=== PATIENT | female | born 1955 | race Caucasian/White ===

== ENCOUNTER 2022-10-18 07:47 | Emergency (ER) | payer OTHER, SELFPAY ==
[2022-10-18 08:07] VITALS: BP 171/95; PULSE 88; RESP 18; TEMP 36.2; O2SAT 99; BMI 20.5
--- NOTE | 2022-10-18 08:09 | ED_ITS ---
HPI - General Adult General Chief complaint: Upper Respiratory Symptoms Stated complaint: neck hurts affecting ear/voice T Time Seen by Provider: 10/18/22 08:08 Source: patient Mode of arrival: Ambulatory Limitations: no limitations History of Present Illness HPI narrative: This is a 66-year-old female with history of hypothyroidism, hypertension and chronic neck pain. Patient states that she is had persistent pain in her left neck that is tightness from the neck radiating down in the trapezius area for several months. She was taking Tylenol which manage her discomfort she saw her physician who recommended meloxicam. She states that has been doing well. She states last night she did sit watching TV and a slightly awkward position which may have exacerbated her symptoms. She woke up this morning it has been a little bit more stiff and uncomfortable. She states that the discomfort sort of radiated to the base of her skull left ear and she felt a little hoarse. Patient states when she stood up to get dressed it made it better and she still has some discomfort in the neck typical for her but that is ear pain resolved as well as the hoarseness. She got a little nervous that she thought that that was changing and affecting possibly her airway. She has not had that symptom in the past. She denies any voice change currently. She denies fevers or chills. No cold cough or congestion. She denies any chest pain or pressure, no shortness of breath. She states that location of the neck discomfort that area does not radiate down her arm. Other than the ear pain and hoarseness she did not have any new additional changes. She denies nausea or vomiting, diaphoresis. No GI or urinary symptoms. No numbness, tingling or weakness. Patient states she is had a prior appendectomy and fallopian tube removal. She states she quit smoking in 1999, no daily alcohol, no illicit. Patient does not take an aspirin daily. No known drug allergies. No known food or other environmental allergies. Related Data Allergies Allergy/AdvReac Type Severity Reaction Status Date / Time No Known Drug Allergies Allergy Verified 10/18/22 08:16 Review of Systems Review of Systems ROS Unobtainable: All systems reviewed & are unremarkable except as noted in HPI and below Patient History Social History Smoking Status: Former smoker Exam Narrative Exam Narrative: GEN: well nourished, well appearing female, alert and oriented x 3, patient appears to be in mild distress. HEENT: Atraumatic, pupils are equal round reactive to light, extraocular movements are intact, nares are clear, TMs show bilateral cerumen, tragus is nontender, there is no conjunctival pallor. Throat is clear without any exudates, erythema, tonsillar enlargement or uvular deviation, patient no hoarseness or muffled voice, no thyromegaly, normal swallow, patient is not having any issues swallowing secretions. Patient has full range of motion, no cervical vertebral tenderness. Patient on palpation does have some mild discomfort over the left paraspinal muscles in the cervical spine and some tissue tightness in the left trapezius. HEART: Regular rate and rhythm without murmur, clicks, rubs. LUNGS:Lungs clear to auscultation, no wheezes, rales, crackles, chest moves symmetrically ABD:bowel sounds normal, soft, non-tender, no guarding, rebound, rigidity, no masses noted, no hepatosplenomegaly MSCL: Non-tender, no muscle atrophy, muscles strength 5/5 upper and lower extremities, full range of motion, normal gait NEURO:CN 2-12 intact, sensation normal SKIN: Rash, erythema or other skin changes. Initial Vital Signs Initial Vital Signs: Vital Signs Temperature 97.2 F L 10/18/22 08:07 Pulse Rate 88 10/18/22 08:07 Respiratory Rate 18 10/18/22 08:07 Blood Pressure 171/95 H 10/18/22 08:07 Pulse Oximetry 99 10/18/22 08:07 Oxygen Delivery Method Room Air 10/18/22 08:07 Course Orders Ordered: ED Orders 10/18/22 08:19 EKG-12 Lead Stat Vital Signs Vital signs: Vital Signs - 8 hr 10/18/22 08:07 Temperature 97.2 F L Pulse Rate 88 Respiratory Rate 18 Blood Pressure 171/95 H Pulse Oximetry 99 Oxygen Delivery Method Room Air Medical Decision Making ECG Data Attestation: I personally reviewed and interpreted this ECG as follows: Prior ECG tracings: not available for review Interpretation: Sinus rhythm rate of 75 MA 160 QRS of [address] No acute [address] changes appreciated. Patient does not have prior for comparison. MDM Narrative Medical decision making narrative: This is a 66-year-old female comes with complaint of acute on chronic neck discomfort patient states she had a brief period where she had ear discomfort and hoarseness that got better when she stood up. Her concern was that she thought there might be some airway involvement. She states that she does not have any known allergies. Her symptoms self-resolved without any other issues. She does note that she sat for awhile which may have exacerbated her chronic neck pain. She takes meloxicam currently for and states her pain is well- controlled. She has not had any other new changes at this time. Patient did have EKG obtained, no acute changes appreciated. Discussed return precautions. Discharge Plan Departure Patient Disposition: Home Clinical Impression: Neck pain on left side Activity Restrictions/Additional Instructions: Please follow-up with your physician for recheck as needed. You may continue your home medications as prescribed. Please return if you have new changes such as persistent hoarseness or voice changes, difficulty with swallowing, swelling of her neck, face, severe headaches, new numbness, tingling or other new or concerning changes. Referrals: Emi Mays ARNP [Primary Care Provider] - Stand Alone Forms: Patient Portal/API
== END 2022-10-18 08:43 | disposition home or self-care (01) ==
PROVIDERS: Emergency Provider Emergency Medicine; PCP Registered Nurse
DX: M54.2 Cervicalgia (principal); R03.0 Elevated blood-pressure reading, without diagnosis of hypertension
CPT/HCPCS: 93005; 99281; 99282

== ENCOUNTER 2022-11-11 08:09 | Emergency (ER) | payer OTHER, SELFPAY ==
[2022-11-11 08:22] VITALS: BP 182/88; PULSE 92; RESP 18; TEMP 36.1; O2SAT 98; BMI 20.9
--- NOTE | 2022-11-11 09:07 | DI.CT.S_ITS ---
PROCEDURE: CT SOFT TISSUE NECK W CON INDICATIONS: Left neck pain, hoarse voice TECHNIQUE: After the administration of intravenous contrast, 3.0 mm axial sections acquired from the sella to the aortic arch. Additional oblique axial 3.0 mm sections acquired through the pharynx. 3 mm thick coronal and sagittal reformats were generated. For radiation dose reduction, the following was used: automated exposure control. COMPARISON: None. FINDINGS: Skull Base: The visualized intracranial contents, skull, and orbits are unremarkable. Visualized paranasal sinuses are clear. Pharynx and Larynx: The nasopharyngeal airway is patent and midline. Parapharyngeal soft tissues including palatine tonsils and base of the tongue are normal. Retropharyngeal space unremarkable. Normal appearance of the false and true vocal cords. Tracheoesophageal groove unremarkable Muscles and Fascial Planes: Fascial planes are well maintained. No abscess or mass lesion. Lymph Nodes: No evidence of adenopathy. Vasculature: Unremarkable. Submandibular and Parotid Glands: Normal in size and attenuation. Thyroid: Unremarkable. No enlarged or calcified nodules. Bones: No acute fracture. No osteolytic or blastic lesion is evident. Normal bone mineralization. Lung Apices: There is a left upper lobe neoplastic mass lesion measuring 3.1 x 3.4 x 5.0 cm associated with bulky mediastinal and left hilar metastatic adenopathy which surrounds the left upper lobe pulmonary artery and fills the aortopulmonary window. IMPRESSION: 1. Bulky metastatic mediastinal adenopathy associated with large left upper lobe pulmonary mass lesion. Consider follow-up CT chest for complete evaluation 2. No evidence of cervical adenopathy Approved by: Rodrick Burks M.D. on 11/11/2022 at 9:25
--- NOTE | 2022-11-11 09:09 | ED.HA ---
HPI - Headache General Chief Complaint: Headache Stated Complaint: headache, pressure on neck/back Time Seen by Provider: 11/11/22 08:59 Mode of arrival: Ambulatory History of Present Illness HPI Narrative: Patient seen here October 18, 2022 for the same complaint. Patient has appointment November [address] Girish Jackson here locally. Patient has had hoarse voice for the past 3 or 4 weeks. In addition has left-sided neck pain. Today radiate to the left temporal area. No nausea or vomiting. Patient wears a hearing aid on the left. This is not changed. This was removed for exam of the ear as well. Patient in no distress. No fever chills. Does have history of hypothyroidism and is on medications. No trouble breathing. At this time handling secretions. No drooling. Patient has had constant left lower neck pain that radiates upwards. Related Data Home Medications Medication Instructions Recorded Confirmed amlodipine 5 mg tablet (Norvasc) 5 mg PO DAILY 11/22/22 11/22/22 diclofenac sodium 1.5 % topical 40 drp topical QID 11/22/22 11/22/22 drops latanoprost 0.005 % eye drops 1 drp ophthalmic (eye) DAILY 11/22/22 11/22/22 levothyroxine 88 mcg tablet 88 mcg PO DAILY 11/22/22 11/22/22 Previous Rx's Medication Instructions Recorded baclofen 20 mg tablet 20 mg PO TID #60 tabs 11/22/22 Allergies Allergy/AdvReac Type Severity Reaction Status Date / Time No Known Drug Allergies Allergy Verified 11/11/22 10:43 Review of Systems Review of Systems Narrative: GENERAL: negative chills, fatigue, malaise, fever, sweats. HEENT: negative sinus pain, ear pain, positive hoarse voice/sore throat RESPIRATORY: negative dyspnea, cough CARDIOVASCULAR: negative chest pain, palpitations GASTROINTESTINAL: negative nausea, vomiting, abdominal pain : negative dysuria, frequency, hematuria MUSCULOSKELETAL: Positive neck/muscle or bony pain SKIN: negative rash, skin lesions NEUROLOGIC: negative weakness, numbness, positive left-sided headache ROS Unobtainable: All systems reviewed & are unremarkable except as noted in HPI and below Patient History Social History Smoking Status: Former smoker Smoking Status: Former smoker tobacco type: cigarettes alcohol intake frequency: 0-2 drinks per day Alcohol type: wine and hard liquor Substance Use Type: does not use Exam Narrative Exam Narrative: GENERAL: in no distress, not toxic not dyspneic HEAD: Normocephalic. EYES: Pupils equal round ENT: Mucous membranes moist. No pharyngeal erythema edema or mass. No uvula shift. No abscess seen. No tongue elevation. No drooling. No trismus or malocclusion. NECK: Trachea midline. No palpable mass anteriorly. No thyromegaly. No stridor. No midline tenderness or step-off of posterior cervical spine. There is mild tenderness to the lower left trapezius muscles. Patient has full active range of motion without any difficulty or pain. CARDIOVASCULAR: Regular rate and rhythm without murmurs RESPIRATORY: Clear to auscultation. Breath sounds equal bilaterally. No wheezes, rales, or rhonchi. NEURO: AOx4. SKIN: Warm and dry PSYCH: Not anxious, is cooperative Initial Vital Signs Initial Vital Signs: Vital Signs Temperature 97 F L 11/11/22 08:22 Pulse Rate 92 H 11/11/22 08:22 Respiratory Rate 18 11/11/22 08:22 Blood Pressure 182/88 H 11/11/22 08:22 Pulse Oximetry 98 11/11/22 08:22 Oxygen Delivery Method Room Air 11/11/22 08:22 Course Orders Ordered: Discontinued Medications Sodium Chloride (Normal Saline 0.9%) 500 mls @ 1,000 mls/hr IV BOLUS ONE Stop: 11/11/22 09:36 Last Infusion: 11/11/22 10:53 Dose: 0 mls/hr Documented By: Admin: 11/11/22 09:58 Dose: 1,000 mls/hr Documented By: INES Vital Signs Vital signs: Vital Signs - 8 hr 11/11/22 08:22 11/11/22 09:59 Temperature 97 F L Pulse Rate 92 H 73 Respiratory Rate 18 16 Blood Pressure 182/88 H 144/67 H Pulse Oximetry 98 100 Oxygen Delivery Method Room Air Room Air MDM - Headache Lab Data 11/11/22 09:14 11/11/22 09:14 Labs: Lab Results 11/11/22 11/11/22 Range/Units 09:14 09:14 WBC 7.4 (4.5-11.0) X10^3/uL RBC 5.31 H (4.0-5.2) X10^6/uL Hgb 14.4 (12.0-16.0) g/dL Hct 43.4 (36-46) % MCV 81.7 (80-100) fL MCH 27.1 (26-34) PG MCHC 33.2 (30-36) % RDW 14.2 (11.6-14.8) % Plt Count 302 (150-400) X10^3/uL Neut % (Auto) 77.2 H (50-75) % Lymph % (Auto) 12.4 L (25-40) % [place] % (Auto) 8.2 (3-14) % Eos % (Auto) 1.3 L (2-4) % Baso % (Auto) 0.9 (0-2) % Neut # (Auto) 5700 (9054-6127) /uL Lymph # (Auto) 900 L (4001-4957) /uL [place] # (Auto) 600 (0-900) /uL Eos # (Auto) 100 (0-450) /uL Baso # (Auto) 100 (0-100) /uL Sodium 138 (137-145) mmol/L Potassium 4.2 (3.4-5.1) mmol/L Chloride 101 (98-107) mmol/L Carbon Dioxide 29 (22-32) mmol/L BUN 13 (7-17) mg/dL Creatinine 0.68 (0.52-1.04) mg/dL Estimated GFR > 60 (>60) mL/min BUN/Creatinine Ratio 19.1 (6-22) Glucose 100 (80-110) mg/dL Calcium 10.0 (8.4-10.2) mg/dL Total Bilirubin 0.7 (0.2-1.3) mg/dL AST 24 (14-36) IU/L ALT 18 (<35) IU/L Alkaline Phosphatase 120 (38-126) U/L Total Protein 8.8 H (6.3-8.2) g/dL Albumin 4.6 (3.5-5.0) g/dL Globulin 4.2 H (1.7-4.1) g/dL Albumin/Globulin Ratio 1.1 (1.0-2.8) Imaging Data ct soft tissue neck: Radiologist's Impression: PROCEDURE:? CT SOFT TISSUE NECK W CON ? INDICATIONS:? Left neck pain, hoarse voice ? TECHNIQUE:? After the administration of intravenous contrast, 3.0 mm axial sections acquired from the sella to the aortic arch.? Additional oblique axial 3.0 mm sections acquired through the pharynx.? 3 mm thick coronal and sagittal reformats were generated.? For radiation dose reduction, the following was used:? automated exposure control.? ? COMPARISON:? None. ? FINDINGS: ? Skull Base: The visualized intracranial contents, skull, and orbits are unremarkable.? Visualized paranasal sinuses are clear. ? Pharynx and Larynx:? The nasopharyngeal airway is patent and midline.? Parapharyngeal soft tissues including palatine tonsils and base of the tongue are normal.? Retropharyngeal space unremarkable.? Normal appearance of the false and true vocal cords. ? ? Tracheoesophageal groove unremarkable ? Muscles and Fascial Planes:? Fascial planes are well maintained.? No abscess or mass lesion. ? Lymph Nodes:? No evidence of adenopathy. ? Vasculature:? Unremarkable. ? Submandibular and Parotid Glands:? Normal in size and attenuation. ? Thyroid:? Unremarkable.? No enlarged or calcified nodules. ? Bones:? No acute fracture.? No osteolytic or blastic lesion is evident. Normal bone mineralization. ? Lung Apices:? There is a left upper lobe neoplastic mass lesion measuring 3.1 x 3.4 x 5.0 cm associated with bulky mediastinal and left hilar metastatic adenopathy which surrounds the left upper lobe pulmonary artery and fills the aortopulmonary window. ? IMPRESSION: ? 1. Bulky metastatic mediastinal adenopathy associated with large left upper lobe pulmonary mass lesion.? Consider follow-up CT chest for complete evaluation ? 2. No evidence of cervical adenopathy CT scan - head: Radiologist's Impression: PROCEDURE:? CT HEAD/BRAIN WO CON ? INDICATIONS:? headache ? TECHNIQUE:? Noncontrast 4.5 mm thick angled axial sections acquired from the foramen magnum to the vertex, with coronal and sagittal reformats.? For radiation dose reduction, the following was used:? automated exposure control, adjustment of mA and/or kV according to patient size.? ? COMPARISON:? None. ? FINDINGS:? Image quality:? Excellent.? ? CSF spaces:? Basal cisterns are patent.? No extra-axial fluid collections.? Ventricles are normal in size and shape.? ? Brain:? No midline shift.? No intracranial masses or hemorrhage.? Thomas-white matter interface is normal.? ? Skull and face:? Calvarium and visualized facial bones are intact, without suspicious lesions.? ? Sinuses:? Visualized sinuses and mastoids are clear.? ? IMPRESSION:? Normal CT of the brain ? ? ? Approved by: Rodrick Burks M.D. on 11/11/2022 at 11:20? CT chest abdomen pelvis: Radiologist's Impression: PROCEDURE:? CT CHEST ABD PEL W CON ? INDICATIONS:? lung mass ? TECHNIQUE:? After the administration of intravenous contrast, 5 mm thick sections acquired from the lung apices to the symphysis.? 5 mm coronal and sagittal reformats were performed, with additional 7 mm MIP reformats through the lungs.? For radiation dose reduction, the following was used:? automated exposure control, adjustment of mA and/or kV according to patient size.? ? COMPARISON:? None. ? FINDINGS: ? Chest: ? Cardiovascular:? Heart size is normal.? No evidence of pulmonary embolism, aortic aneurysm or dissection. ? Lungs and pleural spaces:? In the left upper lobe, there is a large irregular mass lesion abutting and crossing the major fissure measuring overall 3.3 x 3.7 cm axial by 5.2 cm superior inferior. ? Lymph nodes:? Bulky left hilar and mediastinal conglomerate adenopathy measures 3.5 by 4.8 by 2.6 cm centered in the aortopulmonary window with mass effect on the left mainstem bronchus.? Mass also surrounds the left upper lobe main pulmonary artery. ? Mediastinum:? As above.? No hiatal hernia.? Thyroid within normal limits. ? Chest Wall and Bones:? Unremarkable.? No acute fracture. ? Abdomen and Pelvis: ? Liver:? Right hepatic lobe 2.2 cm lesion with peripheral puddling of contrast noted, consistent with cavernous hemangioma Biliary system:? No calcified cholelithiasis or pericholecystic inflammation.? No intra or extrahepatic bile duct dilatation. ? Pancreas:? Unremarkable without mass or inflammation evident. ? Spleen:? Normal in size and density. ? Adrenals:? Normal morphology and density. ? Reproductive system:? Unremarkable as visualized. ? Urinary system:? Normal renal size and attenuation. No renal calculi, hydronephrosis, or solid mass present.? Urinary bladder unremarkable. ? Gastrointestinal system:? The bowel is unremarkable with no evidence of bowel obstruction or inflammation. The stomach appears unremarkable.? ? Appendix:? No findings to suggest acute appendicitis. ? Lymph nodes:? No mesenteric or retroperitoneal adenopathy. ? Peritoneal spaces: ? No free air. No free fluid.? ? Vasculature:? Aortic atherosclerotic vascular calcification noted without evidence of aneurysm. ? Abdominal wall:? Abdominal wall intact without evidence of ventral or inguinal hernias. ? Musculoskeletal:? Normal bone mineralization.? Degenerative disc disease and arthropathy noted in lower lumbar spine.? No acute fractures.? Arthritic changes noted both hips, right greater than left ? IMPRESSION: ? 1.? Large left upper lobe mass lesion associated with left hilar and mediastinal metastatic adenopathy.? Conglomerate mediastinal mass does have mass effect on the left mainstem bronchus.? Consider follow-up bronchoscopy ? Approved by: Rodrick Burks M.D. on 11/11/2022 at 11:31? [facility] Narrative Medical decision making narrative: After history and exam CBC CMP CT soft tissue neck normal saline ordered [facility] CC: Hoarse voice neck pain Complicating co-morbidities: None Data collected from: Patient Medical records reviewed: ER visit here October 18, 2022 Differential considered: Includes but not limited to vocal cord polyp, neck mass, cervical radiculopathy Exam documented above, pertinent findings include: Hoarse voice Lab Test results independently reviewed as above. Pertinent findings: WBC 7.4 hemoglobin 14 hematocrit 43 platelets 302 sodium 138 potassium 4.2 GFR greater than 60 AST 24 ALT 18 Imaging studies independently reviewed: CT soft tissue neck Bulky metastatic mediastinal adenopathy associated with large left upper lobe pulmonary mass lesion. CT head no acute process CT chest abdomen pelvis bulky metastatic mediastinal adenopathy associated with large left upper lobe pulmonary mass lesion. Consultations: 2:[address] Portillo, oncology. He will have office call patient on Sunday, patient will also need to call Sunday to confirm time for follow up with Dr. Bashir in [place] for workup for possible lung cancer. Treatments: Normal saline Re-evaluations: 10:30 a.m.. Spoke with patient concerning CT neck results of metastatic lung cancer. We are waiting for CT imaging of the head chest abdomen and pelvis. 2:45 p.m.. Updated patient my conversation with oncology. She agrees for follow up. She understands this is concerning for lung cancer. 3:15 p.m.. I called patient back, I did prescribe her hydrocodone. I did not provide that at time of discharge. It will be here at the emergency department for her to pick up attendant Discussion: Appropriate for discharge home. Patient airway intact. Patient protecting airway. Nontoxic not dyspneic. She does understand this is concerning for metastatic lung cancer. She did stop smoking within the last year. Appropriate for follow up with Oncology. I have contacted Oncology Services. Diagnosis: Metastatic lung mass Discharge Plan Departure Patient Disposition: Home Clinical Impression: Mass of left lung Instructions: DI for Lung Cancer Activity Restrictions/Additional Instructions: Please call Dr. Bashir office on Sunday for follow up appointment regarding the lung mass/tumor found today in your lungs. Please do keep your appointment with Dr. Jackson November 20 regarding your throat issues. Be sure to let Dr. Jackson office know he had CT scan imaging done. Return if worse if any questions or concerns or if any trouble breathing. Prescription for baclofen has been sent to your pharmacy to pick up attendant today. You will require further workup regarding this lung mass/tumor Prescriptions: No Action latanoprost 0.005 % Drops 1 drp OPHTHALMIC (EYE) DAILY levothyroxine 88 mcg Tablet 88 mcg PO DAILY diclofenac sodium 1.5 % Drops 40 drp TOPICAL QID Rx Instructions: apply to single affected knee amlodipine [Norvasc] 5 mg Tablet 5 mg PO DAILY baclofen 20 mg Tablet 20 mg PO TID Qty: 60 1RF Referrals: Emi Mays ARNP [Primary Care Provider] - Ricky Bashir MD [Physician] - Stand Alone Forms: Patient Portal/API
[2022-11-11 09:21] LABS: Add Manual Diff / Slide Review NO; Basophils Absolute Auto 100 /uL (0-100); Basophils Percent Auto 0.9 % (0-2); Eosinophils Absolute Auto 100 /uL (0-450); Eosinophils Percent Auto 1.3 % (2-4); Hematocrit 43.4 % (36-46); Hemoglobin 14.4 g/dL (12.0-16.0); Lymphocytes Absolute Auto 900 /uL (1100-4500); Lymphocytes Percent Auto 12.4 % (25-40); Mean Corpuscular HGB Conc 33.2 % (30-36); Mean Corpuscular Hemoglobin 27.1 PG (26-34); Mean Corpuscular Volume 81.7 fL (80-100); Monocytes Absolute Auto 600 /uL (0-900); Monocytes Percent Auto 8.2 % (3-14); Neutrophils Absolute Auto 5700 /uL (1500-7000); Neutrophils Percent Auto 77.2 % (50-75); Platelet Count 302 X10^3/uL (150-400); Red Blood Cell Count 5.31 X10^6/uL (4.0-5.2); Red Cell Distribution Width 14.2 % (11.6-14.8); White Blood Cell Count 7.4 X10^3/uL (4.5-11.0)
[2022-11-11 09:38] LABS: Alanine Aminotransferase 18 IU/L (<35); Albumin 4.6 g/dL (3.5-5.0); Albumin Globulin Ratio 1.1 (1.0-2.8); Alkaline Phosphatase 120 U/L (38-126); Aspartate Aminotransferase 24 IU/L (14-36); BUN Creatinine Ratio 19.1 (6-22); Bilirubin Total 0.7 mg/dL (0.2-1.3); Blood Urea Nitrogen 13 mg/dL (7-17); Carbon Dioxide 29 mmol/L (22-32); Chloride 101 mmol/L (98-107); Estimated Glomerular Filt Rate > 60 mL/min (>60); Globulin 4.2 g/dL (1.7-4.1); Glucose 100 mg/dL (80-110); HEMOLYSIS < 15 (0-50); Potassium 4.2 mmol/L (3.4-5.1); Sodium 138 mmol/L (137-145); Total Protein 8.8 g/dL (6.3-8.2)
[2022-11-11] MEDS: SODIUM CHLORIDE 0.9% 500 ML 1000 ML IV (09:58)
[2022-11-11 09:59] VITALS: BP 144/67; PULSE 73; RESP 16; O2SAT 100
--- NOTE | 2022-11-11 10:42 | DI.CT.S_ITS ---
PROCEDURE: CT HEAD/BRAIN WO CON INDICATIONS: headache TECHNIQUE: Noncontrast 4.5 mm thick angled axial sections acquired from the foramen magnum to the vertex, with coronal and sagittal reformats. For radiation dose reduction, the following was used: automated exposure control, adjustment of mA and/or kV according to patient size. COMPARISON: None. FINDINGS: Image quality: Excellent. CSF spaces: Basal cisterns are patent. No extra-axial fluid collections. Ventricles are normal in size and shape. Brain: No midline shift. No intracranial masses or hemorrhage. Thomas-white matter interface is normal. Skull and face: Calvarium and visualized facial bones are intact, without suspicious lesions. Sinuses: Visualized sinuses and mastoids are clear. IMPRESSION: Normal CT of the brain Approved by: Rodrick Burks M.D. on 11/11/2022 at 11:20
--- NOTE | 2022-11-11 10:42 | DI.CT.S_ITS ---
PROCEDURE: CT CHEST ABD PEL W CON INDICATIONS: lung mass TECHNIQUE: After the administration of intravenous contrast, 5 mm thick sections acquired from the lung apices to the symphysis. 5 mm coronal and sagittal reformats were performed, with additional 7 mm MIP reformats through the lungs. For radiation dose reduction, the following was used: automated exposure control, adjustment of mA and/or kV according to patient size. COMPARISON: None. FINDINGS: Chest: Cardiovascular: Heart size is normal. No evidence of pulmonary embolism, aortic aneurysm or dissection. Lungs and pleural spaces: In the left upper lobe, there is a large irregular mass lesion abutting and crossing the major fissure measuring overall 3.3 x 3.7 cm axial by 5.2 cm superior inferior. Lymph nodes: Bulky left hilar and mediastinal conglomerate adenopathy measures 3.5 by 4.8 by 2.6 cm centered in the aortopulmonary window with mass effect on the left mainstem bronchus. Mass also surrounds the left upper lobe main pulmonary artery. Mediastinum: As above. No hiatal hernia. Thyroid within normal limits. Chest Wall and Bones: Unremarkable. No acute fracture. Abdomen and Pelvis: Liver: Right hepatic lobe 2.2 cm lesion with peripheral puddling of contrast noted, consistent with cavernous hemangioma Biliary system: No calcified cholelithiasis or pericholecystic inflammation. No intra or extrahepatic bile duct dilatation. Pancreas: Unremarkable without mass or inflammation evident. Spleen: Normal in size and density. Adrenals: Normal morphology and density. Reproductive system: Unremarkable as visualized. Urinary system: Normal renal size and attenuation. No renal calculi, hydronephrosis, or solid mass present. Urinary bladder unremarkable. Gastrointestinal system: The bowel is unremarkable with no evidence of bowel obstruction or inflammation. The stomach appears unremarkable. Appendix: No findings to suggest acute appendicitis. Lymph nodes: No mesenteric or retroperitoneal adenopathy. Peritoneal spaces: No free air. No free fluid. Vasculature: Aortic atherosclerotic vascular calcification noted without evidence of aneurysm. Abdominal wall: Abdominal wall intact without evidence of ventral or inguinal hernias. Musculoskeletal: Normal bone mineralization. Degenerative disc disease and arthropathy noted in lower lumbar spine. No acute fractures. Arthritic changes noted both hips, right greater than left IMPRESSION: 1. Large left upper lobe mass lesion associated with left hilar and mediastinal metastatic adenopathy. Conglomerate mediastinal mass does have mass effect on the left mainstem bronchus. Consider follow-up bronchoscopy Approved by: Rodrick Burks M.D. on 11/11/2022 at 11:31
--- NOTE | 2022-11-11 10:45 | PC.NURSE ---
Dr. King removed pt from monitoring, states pt does not require continuous vitals at this time.
== END 2022-11-11 14:55 | disposition home or self-care (01) ==
PROVIDERS: Emergency Provider Emergency Medicine; PCP Registered Nurse
DX: C78.02 Secondary malignant neoplasm of left lung (principal); R51.9 Headache, unspecified; R91.8 Other nonspecific abnormal finding of lung field; M54.2 Cervicalgia
CPT/HCPCS: 36415; 70450; 70491; 71260; 74177; 80053; 85025; 99284; Q9967

== ENCOUNTER 2022-12-14 06:59 | Emergency (ER) | payer OTHER, SELFPAY ==
[2022-12-14] VITALS (11 sets, daily range): BP systolic 118–150; BP diastolic 65–89; PULSE 75–98; RESP 16–26; TEMP 36.6; O2SAT 94–96; BMI 19.9
--- NOTE | 2022-12-14 07:17 | DI.RAD.S_ITS ---
PROCEDURE: XR CHEST 2V INDICATIONS: SOB TECHNIQUE: 2 views of the chest were acquired. COMPARISON: [facility], CR, XR CHEST 1 VIEW, 12/11/2022, 16:57. [facility], CT, CT CHEST WITH CONTRAST, 12/01/2022, 12:58. FINDINGS: Surgical changes and devices: A left chest port is seen with catheter tip projecting over the superior vena cava. Lungs and pleura: No significant change in the upper lobe mass. There is mild volume loss within the left hemithorax with leftward shift mediastinal structures and mild elevation of the left hemidiaphragm. No pleural effusion or pneumothorax. Mediastinum: Mediastinal contours are normal. Heart size is normal. Bones and chest wall: No suspicious bony abnormalities. Soft tissues appear unremarkable. IMPRESSION: Stable left suprahilar mass. Volume loss within the left hemithorax has increased when compared to the exam from 12/11/2022, which could indicate increased mass effect on left-sided bronchi, although no definite lobar collapse is seen. Approved by: Roberto Wood M.D. on 12/14/2022 at 7:36
--- NOTE | 2022-12-14 07:20 | ED.CHESTPAIN ---
HPI - Chest Pain General Chief Complaint: Chest Pain Stated Complaint: port put in a now has pain in neck, back left side Time Seen by Provider: 12/14/22 07:16 History of Present Illness HPI narrative: 66-year-old female former smoker with lung cancer and recent port placement presents with multiple symptoms upon waking this morning including chest pain, shortness of breath and neck pain. She states that she felt largely at her baseline when she went to bed but on the whole has not been feeling well for quite some time. Her partner at the bedside suggest that she is been getting increasingly short of breath with chest and neck discomfort with exertion for quite some time it is unclear if it is getting worse or not. She woke up this morning feeling chest pressure that seemed to worsen upon sitting up. She feels pressure in her posterior shoulder and left side of her neck as well. She is in the process of being worked up for a left lung mass that is most consistent with lung cancer and on the had a biopsy and a port placed at [facility]. She denies any fever or chills. She denies nausea, vomiting or diarrhea. She denies any blurred vision, trouble speech and is not dizzy nor weak or lightheaded. Related Data Home Medications Medication Instructions Recorded Confirmed amlodipine 5 mg tablet (Norvasc) 5 mg PO DAILY 11/22/22 11/22/22 diclofenac sodium 1.5 % topical 40 drp topical QID 11/22/22 11/22/22 drops latanoprost 0.005 % eye drops 1 drp ophthalmic (eye) DAILY 11/22/22 11/22/22 levothyroxine 88 mcg tablet 88 mcg PO DAILY 11/22/22 11/22/22 Previous Rx's Medication Instructions Recorded baclofen 20 mg tablet 20 mg PO TID #60 tabs 11/22/22 Allergies Allergy/AdvReac Type Severity Reaction Status Date / Time No Known Drug Allergies Allergy Verified 11/11/22 10:43 Review of Systems Review of Systems Narrative: GENERAL: Denies chills, fatigue, malaise, fever, sweats. HEENT: Denies sinus pain, ear pain, sore throat, difficulty swallowing, dizziness. RESPIRATORY: See HPI. CARDIOVASCULAR: See HPI GASTROINTESTINAL: Denies nausea, vomiting, abdominal pain, diarrhea, constipation, melena. : Denies dysuria, frequency, incontinence, hematuria, urinary retention. MUSCULOSKELETAL: denies weakness, joint pain, or bony pain SKIN: Denies rash, skin lesions, or other NEUROLOGIC: Denies weakness, headache, numbness, change in speech, confusion, seizures, incoordination. PSYCHIATRIC: No concerning psychosocial issues. 12 point review of systems is negative except for those stated above Patient History Social History Smoking Status: Former smoker Smoking Status: Former smoker tobacco type: cigarettes alcohol intake frequency: 0-2 drinks per day Alcohol type: wine and hard liquor Substance Use Type: does not use Exam Narrative Exam Narrative: GENERAL: [66] year old patient appears stated age. Well-developed patient, in mild distress. HEAD: Atraumatic. Normocephalic. EYES: Pupils equal round and reactive. Extraocular motions intact. No scleral icterus. No injection or drainage. ENT: Nose without bleeding, purulent drainage. Throat without erythema, tonsillar hypertrophy or exudate. Airway patent. NECK: Trachea midline. Non tender CARDIOVASCULAR: Regular rate and rhythm without murmurs, gallops, or rubs. Anterior chest with appropriately healing port site, no significant redness or swelling, no drainage, no fluctuance RESPIRATORY: Decreased lung sounds bilaterally with prolonged expiratory phase, no obvious rales or rhonchi GASTROINTESTINAL: Abdomen soft, non-tender, nondistended. EXTREMITIES: No edema or joint tenderness. BACK: Nontender without deformity or crepitance. No flank tenderness. NEURO: AOx3. SKIN: No rash or erythema of visible areas Initial Vital Signs Initial Vital Signs: Vital Signs Temperature 97.9 F 12/14/22 07:01 Pulse Rate 98 H 12/14/22 07:01 Respiratory Rate 16 12/14/22 07:01 Blood Pressure 150/80 H 12/14/22 07:01 Pulse Oximetry 94 12/14/22 07:01 Oxygen Delivery Method Room Air 12/14/22 07:01 Scores HEART Score Heart Score history: Slightly Suspicious Heart Score EKG: Normal Heart Score Age: > or = 65 years old Heart Score risk factors: 1-2 risk factors Heart Score troponin: < or = to normal limit Heart Score Total: 3 Course Orders Ordered: ED Orders 12/14/22 07:17 XR chest 2V Stat 12/14/22 07:18 EKG-12 Lead Stat 12/14/22 08:00 Complete Blood Count AUTO DIFF Stat Comprehensive Metabolic Panel Stat Lipase Stat Magnesium Stat NT-proBNP (BNP-Adult 18+) Stat Prothrombin Time INR Stat Troponin & CK Cardiac Panel Stat 12/14/22 08:02 CT angio chest Stat CT angio head and neck Stat 12/14/22 11:46 Troponin & CK Cardiac Panel Stat Vital Signs Vital signs: Vital Signs - 8 hr 12/14/22 07:01 12/14/22 08:05 12/14/22 08:07 Temperature 97.9 F Pulse Rate 98 H 86 Respiratory Rate 16 Blood Pressure 150/80 H 130/75 Pulse Oximetry 94 95 Oxygen Delivery Method Room Air 12/14/22 08:07 12/14/22 08:30 12/14/22 08:30 Temperature Pulse Rate 83 75 Respiratory Rate 17 Blood Pressure 118/73 Pulse Oximetry 95 95 Oxygen Delivery Method MDM - Chest Pain Lab Data 12/14/22 08:00 12/14/22 08:00 Labs: Lab Results 12/14/22 12/14/22 12/14/22 Range/Units 08:00 08:00 08:00 WBC 9.2 (4.5-11.0) X10^3/uL RBC 5.00 (4.0-5.2) X10^6/uL Hgb 13.5 (12.0-16.0) g/dL Hct 40.4 (36-46) % MCV 80.7 (80-100) fL MCH 26.9 (26-34) PG MCHC 33.4 (30-36) % RDW 14.2 (11.6-14.8) % Plt Count 317 (150-400) X10^3/uL Neut % (Auto) 78.1 H (50-75) % Lymph % (Auto) 11.5 L (25-40) % [place] % (Auto) 8.8 (3-14) % Eos % (Auto) 1.1 L (2-4) % Baso % (Auto) 0.5 (0-2) % Neut # (Auto) 7200 H (4763-4767) /uL Lymph # (Auto) 1100 (1516-5488) /uL [place] # (Auto) 800 (0-900) /uL Eos # (Auto) 100 (0-450) /uL Baso # (Auto) 0 (0-100) /uL PT 13.1 H (10.1-12.7) SECONDS INR 1.1 (0.9-1.3) Sodium 136 L (137-145) mmol/L Potassium 4.5 (3.4-5.1) mmol/L Chloride 101 (98-107) mmol/L Carbon Dioxide 28 (22-32) mmol/L BUN 10 (7-17) mg/dL Creatinine 0.72 (0.52-1.04) mg/dL Estimated GFR > 60 (>60) mL/min BUN/Creatinine Ratio 13.9 (6-22) Glucose 107 (80-110) mg/dL Calcium 9.6 (8.4-10.2) mg/dL Magnesium 2.3 (1.6-2.3) mg/dL Total Bilirubin 0.6 (0.2-1.3) mg/dL AST 21 (14-36) IU/L ALT 17 (<35) IU/L Alkaline Phosphatase 133 H (38-126) U/L Total Creatine Kinase 26 L (30-135) U/L CK-MB (CK-2) TNP CK-MB (CK-2) Rel Index TNP Troponin I < 0.012 (0.01-0.034) ng/mL NT-Pro-B Natriuret Pep 60 (<125) pg/mL Total Protein 7.8 (6.3-8.2) g/dL Albumin 4.2 (3.5-5.0) g/dL Globulin 3.6 (1.7-4.1) g/dL Albumin/Globulin Ratio 1.2 (1.0-2.8) Lipase 86 (23-300) U/L 05/25/ Range/Units 11:46 WBC (4.5-11.0) X10^3/uL RBC (4.0-5.2) X10^6/uL Hgb (12.0-16.0) g/dL Hct (36-46) % MCV (80-100) fL MCH (26-34) PG MCHC (30-36) % RDW (11.6-14.8) % Plt Count (150-400) X10^3/uL Neut % (Auto) (50-75) % Lymph % (Auto) (25-40) % [place] % (Auto) (3-14) % Eos % (Auto) (2-4) % Baso % (Auto) (0-2) % Neut # (Auto) (5607-4560) /uL Lymph # (Auto) (9141-6042) /uL [place] # (Auto) (0-900) /uL Eos # (Auto) (0-450) /uL Baso # (Auto) (0-100) /uL PT (10.1-12.7) SECONDS INR (0.9-1.3) Sodium (137-145) mmol/L Potassium (3.4-5.1) mmol/L Chloride (98-107) mmol/L Carbon Dioxide (22-32) mmol/L BUN (7-17) mg/dL Creatinine (0.52-1.04) mg/dL Estimated GFR (>60) mL/min BUN/Creatinine Ratio (6-22) Glucose (80-110) mg/dL Calcium (8.4-10.2) mg/dL Magnesium (1.6-2.3) mg/dL Total Bilirubin (0.2-1.3) mg/dL AST (14-36) IU/L ALT (<35) IU/L Alkaline Phosphatase (38-126) U/L Total Creatine Kinase 22 L (30-135) U/L CK-MB (CK-2) TNP CK-MB (CK-2) Rel Index TNP Troponin I < 0.012 (0.01-0.034) ng/mL NT-Pro-B Natriuret Pep (<125) pg/mL Total Protein (6.3-8.2) g/dL Albumin (3.5-5.0) g/dL Globulin (1.7-4.1) g/dL Albumin/Globulin Ratio (1.0-2.8) Lipase (23-300) U/L ECG Data Interpretation: [0738] EKG is normal sinus rhythm rate [80 ] and free of any signs of ischemia or ectopy. No ST segmental elevation or depression. No T wave inversions MDM Narrative Medical decision making narrative: CC: 66-year-old female with chest pain and neck pain Complicating co-morbidities: Age, former smoker, hypertension, recent thoracic procedure, biopsy, port placement, lung cancer Data collected from: Patient Medical records reviewed: Prior notes reviewed in our EMR Differential considered, but not limited to: Cardiac ischemia versus pulmonary embolism versus vascular injury versus DVT versus other Exam documented above, pertinent findings include: Heart rate regular, non reproducible anterior chest pain, port site appears in appropriate stage of healing, lungs with decreased breath sounds, prolonged expiratory phase, no significant increased work of breathing Lab Test results independently reviewed as above. Pertinent findings: Independently reviewed EKG as above Imaging studies independently reviewed: Chest x-ray demonstrates a stable left suprahilar mass with volume loss within the left hemothorax slightly increased from prior imaging Consultations: Spoke with Dr. Hanson, requests she be discharged and make it to the appointment this afternoon. Discussion: Patient presents with reassuring history and physical exam and given her recent lung cancer diagnosis and procedures lab workup and imaging were ordered accordingly. Labs are reassuring and without any significant abnormal findings. Advanced imaging of chest, head and neck performed that showed no occlusive process or vascular injury. She does however have interval worsening of her lung cancer and though it is beginning to involve the mainstem bronchus there is no evidence of obstruction at this time. She does have an appointment with Oncology this afternoon and after speaking with the oncologist he thinks her best course is to get treatment started as soon as possible. Disposition: see below, along with detailed discharge instructions that have been reviewed with patient as well as indications for ED re-evaluation and additional outpatient follow up Discharge Plan Departure Patient Disposition: Home Clinical Impression: Atypical chest pain, Lung cancer Instructions: DI for Atypical Chest Pain Activity Restrictions/Additional Instructions: *You have been diagnosed with [symptoms related to interval change in your lung cancer. As we discussed your labs, imaging and EKGs are very reassuring and there is no evidence of any complication of your port, heart attack, blood clot or other.] *What to do: *Please continue to take your regular medications as directed. [ ] New medication prescriptions sent to your pharmacy: [ ] [ ] New medication written as a paper prescription [ ] No new medications given * please proceed directly to your oncology visit this afternoon as planned *Return to Emergency Department if you should have any new, worsening or concerning symptoms, such as [fever greater than 101 F, shaking chills, worsening pain, persistent vomiting or other bothersome symptoms] Prescriptions: No Action latanoprost 0.005 % Drops 1 drp OPHTHALMIC (EYE) DAILY levothyroxine 88 mcg Tablet 88 mcg PO DAILY diclofenac sodium 1.5 % Drops 40 drp TOPICAL QID Rx Instructions: apply to single affected knee amlodipine [Norvasc] 5 mg Tablet 5 mg PO DAILY baclofen 20 mg Tablet 20 mg PO TID Qty: 60 1RF Referrals: Emi Mays ARNP [Primary Care Provider] - Akil Hanson MD [Physician] - Stand Alone Forms: Patient Portal/API
--- NOTE | 2022-12-14 08:02 | DI.CT.S_ITS ---
PROCEDURE: CT ANGIO HEAD AND NECK INDICATIONS: pain in chest, neck, recent port, known lung CA TECHNIQUE: Pre-contrast 4.5 mm thick sections acquired from the foramen magnum to the vertex. After the administration of intravenous contrast, 1 mm thick sections acquired from the aortic arch through the [place] of [place]. Post-contrast 4.5 mm thick sections then re-acquired from the foramen magnum to the vertex. 3-dimensional bleyozi-ylmkldrft-hxwjwbiway (MIP) and/or volume rendering reformats were acquired of the central intracranial vasculature and neck separately. For radiation dose reduction, the following was used: automated exposure control, adjustment of mA and/or kV according to patient size. COMPARISON: [facility], CR, XR CHEST 2V, 12/14/2022, 7:24. [facility] Film, NM, PET NECK TO MID THIGH, 11/30/2022, 11:24. [facility], CT, CT ANGIO CHEST, 12/14/2022, 8:41. [facility], CT, CT HEAD/BRAIN WO CON, 11/11/2022, 11:28. FINDINGS: Image quality: Excellent. BRAIN: CSF spaces: Ventricles are normal in size and shape. Basal cisterns are patent. No extra-axial fluid collections. Brain: No midline shift. No intracranial bleeds or masses. Thomas-white matter interface appears intact. Skull and face: Calvarium and facial bones appear intact, without suspicious lesions. Orbits appear normal. Sinuses: Sinuses and mastoids are clear. HEAD CT ANGIOGRAPHY: Anterior circulation: Intracranial internal carotid arteries are normal in size and flow. The flow within the paired anterior cerebral arteries is normal and symmetric. The flow within the middle cerebral arteries is normal and symmetric. The anterior communicating artery is seen. No aneurysms are seen. Posterior circulation: Visualized portions of the vertebral arteries demonstrate normal caliber, and join to form a normal appearing basilar artery. Flow within the posterior cerebral arteries is normal and symmetric. No aneurysms are seen. NECK CT ANGIOGRAPHY: Carotid system: The right vertebral artery is dominant. The left vertebral artery arises directly from the aortic arch. The great vessels demonstrate a conventional anatomy as they arise from the aortic arch. The origins of the common carotid arteries appear patent. The common carotid arteries demonstrate normal caliber and courses. The bifurcation regions are both widely patent. The internal carotid arteries demonstrate normal calibers and courses. Posterior circulation: The origins of the vertebral arteries both appear widely patent. The more superior extracranial portions of both vertebral arteries also demonstrate normal courses and calibers. They join to form a normal appearing basilar artery. Soft tissues: There is a Port-A-Cath in the left anterior chest. There is left mally vocal cord paralysis. There is a 3.5 cm left upper lobe mass. Marked left hilar and mediastinal lymphadenopathy consistent with metastasis. There is compression of the left main pulmonary artery by the large dereck mass. Please see separate CT chest angiogram for detail. Bones: No suspicious bony lesions. Suspect a 0.9 cm intra-articular body in the left shoulder (series 10, image 132). Visualized cervical spine appears normally aligned. IMPRESSION: 1. No acute intracranial abnormalities. 2. No hemodynamic significant stenosis in anterior or posterior circulations. 3. No hemodynamic significant stenosis in cervical carotid arteries or vertebral arteries bilaterally. 4. There is a large left upper lobe mass consistent with lung cancer. Left hilar and mediastinal lymphadenopathy consistent with dereck metastasis. Please see separate CT chest angio for detail. 5. 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 Any quantitative measurements of stenosis were performed using NASCET criteria. Dictated by: Jevon Ramirez M.D. on 12/14/2022 at 10:10 Approved by: Jevon Ramirez M.D. on 12/14/2022 at 10:24
--- NOTE | 2022-12-14 08:02 | DI.CT.S_ITS ---
PROCEDURE: CT ANGIO CHEST INDICATIONS: chest pain, SOB, neck pain, recent port, lung CA TECHNIQUE: After the administration of intravenous contrast, 2 mm thick sections acquired from the pulmonary apices to the posterior costophrenic angles. 3-dimensional maximum intensity projection (MIP) coronal and sagittal reformats were then acquired through the thorax. For radiation dose reduction, the following was used: automated exposure control, adjustment of mA and/or kV according to patient size. COMPARISON: [facility], CT, CT CHEST WITH CONTRAST, 12/01/2022, 12:58. [facility], CT, CT CHEST ABD PEL W CON, 11/11/2022, 11:28. FINDINGS: Image quality: Excellent. Pulmonary arteries: Pulmonary arteries are normal in size, and demonstrate no intraluminal filling defects to suggest central pulmonary embolism. 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 The posterior left upper lobe mass has changed disorientation somewhat. On previous axial image 89/3 it measured 3.7 x 3.5 cm. On current image 33/6 it measures 3.5 x 3.8 cm. When looking at the mass in sagittal reconstruction, it is clear to see that it is significantly increased in size. On previous sagittal image 27/6 it measured 3.9 x 5.7 cm. On current image 57/10 it measures 6.4 x 6.4 cm. There is interval development of some atelectasis in the basilar portion of the left lower lobe. Mediastinum: Heart size is normal, without pericardial effusion. The AP window mass has significantly enlarged in the past 13 days. On prior image 23/2 it measured 5.3 x 3.2 cm. On current image 36/5 it measures 5.9 x 3.7 cm. Tumor invasion into the left main bronchus is again noted. The invading tumor has also increased in size previously measuring 0.9 cm in currently measuring 1.4 cm. The malignancy is significantly spreading surrounding the left main pulmonary artery and left lower lobe pulmonary artery. It is much more circumferential than previously, and much larger. Recommend visual comparison between previous axial image 26/2 and current axial image 41/5. It is now somewhat narrowing these pulmonary arterial structures. Thoracic aorta is normal in caliber and enhancement. Esophagus is normal in caliber, without hiatal hernia. Bones and chest wall: No suspicious bony lesions. Ribs and thoracic spine appear intact throughout. Thyroid gland is unremarkable. No axillary or supraclavicular adenopathy. Abdomen: Visualized upper abdominal solid organs appear normal in the early arterial phase of enhancement. IMPRESSION: 1. No evidence acute pulmonary emboli. 2. Very rapid interval progression of left upper lobe malignancy with rapid progression of extensive mediastinal involvement. The component which has extended through the left main bronchus has increased. There is developing encasement of the left main pulmonary artery and central portion of left lower lobe pulmonary artery. 3. Developing atelectasis in the left lower lobe. Dictated by: Leonardo Calderon M.D. on 12/14/2022 at 9:16 Approved by: Leonardo Calderon M.D. on 12/14/2022 at 9:29
[2022-12-14 08:19] LABS: Add Manual Diff / Slide Review NO; Basophils Absolute Auto 0 /uL (0-100); Basophils Percent Auto 0.5 % (0-2); Eosinophils Absolute Auto 100 /uL (0-450); Eosinophils Percent Auto 1.1 % (2-4); Hematocrit 40.4 % (36-46); Hemoglobin 13.5 g/dL (12.0-16.0); Lymphocytes Absolute Auto 1100 /uL (1100-4500); Lymphocytes Percent Auto 11.5 % (25-40); Mean Corpuscular HGB Conc 33.4 % (30-36); Mean Corpuscular Hemoglobin 26.9 PG (26-34); Mean Corpuscular Volume 80.7 fL (80-100); Monocytes Absolute Auto 800 /uL (0-900); Monocytes Percent Auto 8.8 % (3-14); Neutrophils Absolute Auto 7200 /uL (1500-7000); Neutrophils Percent Auto 78.1 % (50-75); Platelet Count 317 X10^3/uL (150-400); Red Cell Distribution Width 14.2 % (11.6-14.8); White Blood Cell Count 9.2 X10^3/uL (4.5-11.0)
[2022-12-14 08:27] LABS: INR 1.1 (0.9-1.3); Prothrombin Time 13.1 SECONDS (10.1-12.7)
[2022-12-14 08:32] LABS: Alanine Aminotransferase 17 IU/L (<35); Albumin 4.2 g/dL (3.5-5.0); Albumin Globulin Ratio 1.2 (1.0-2.8); Alkaline Phosphatase 133 U/L (38-126); Aspartate Aminotransferase 21 IU/L (14-36); BUN Creatinine Ratio 13.9 (6-22); Bilirubin Total 0.6 mg/dL (0.2-1.3); Blood Urea Nitrogen 10 mg/dL (7-17); Calcium 9.6 mg/dL (8.4-10.2); Carbon Dioxide 28 mmol/L (22-32); Chloride 101 mmol/L (98-107); Creatine Kinase 26 U/L (30-135); Estimated Glomerular Filt Rate > 60 mL/min (>60); Globulin 3.6 g/dL (1.7-4.1); Glucose 107 mg/dL (80-110); HEMOLYSIS < 15 (0-50); Lipase 86 U/L (23-300); Magnesium 2.3 mg/dL (1.6-2.3); Potassium 4.5 mmol/L (3.4-5.1); Sodium 136 mmol/L (137-145); Total Protein 7.8 g/dL (6.3-8.2)
[2022-12-14 08:44] LABS: NT-proBNP (BNP-Adult 18+) 60 pg/mL (<125); Troponin I < 0.012 ng/mL (0.01-0.034)
[2022-12-14 12:12] LABS: Creatine Kinase 22 U/L (30-135)
[2022-12-14 12:25] LABS: Troponin I < 0.012 ng/mL (0.01-0.034)
--- NOTE | 2023-01-04 09:50 | PC.NURSE ---
Acid reflux: Pt called c/o increased acid reflux despite tale Previcid. Pt denies taking any acid producing food and beverages, unalleviated with positioning. SX reported to Dr. Bashir. VVO for Protonix 40mg PO QD #30 e-scribed to Enrique Brown. Pt aware, verbalized understanding.
== END 2022-12-14 12:34 | disposition home or self-care (01) ==
PROVIDERS: Emergency Provider Emergency Medicine; PCP Registered Nurse
DX: R07.89 Other chest pain (principal); C34.90 Malignant neoplasm of unspecified part of unspecified bronchus or lung; R06.02 Shortness of breath; M54.2 Cervicalgia
CPT/HCPCS: 36415; 70496; 70498; 71046; 71275; 80053; 82550; 83690; 83735; 83880; 84484; 85025; 85610; 93005; 93010; 99284; Q9967

== ENCOUNTER → 2023-02-10 08:48 | Outpatient (CLI) | payer OTHER, SELFPAY ==
--- NOTE | 2023-02-10 08:49 | DI.MRI.S_ITS ---
PROCEDURE: MR HEAD/BRAIN WO/W CON INDICATIONS: lung cancer staging. TECHNIQUE: Noncontrast axial T1 spin echo, axial T2 fast spin echo, sagittal and axial FLAIR, coronal T2 fast spin echo, axial gradient echo, axial diffusion and ADC through the brain. After the administration of contrast, axial and coronal and sagittal T1 spin echo with fat saturation through the brain. COMPARISON: [facility], CT, CT HEAD/BRAIN WO CON, 11/11/2022, 11:28. FINDINGS: Image quality: Excellent. CSF spaces: Basal cisterns are patent. No extra-axial fluid collections. Ventricles are normal in size and shape. Brain: There are several enhancing lesions with surrounding FLAIR signal abnormality as follows: * Left precentral gyrus near the vertex measuring 5 millimeters (13/141) * Right posterior frontal lobe measuring 5 millimeters (13/132) * Anterior left frontal lobe measuring 6 millimeters (13/103) * Left mesial temporal lobe measuring 6 millimeters (13/54) * Left cerebellar hemisphere measuring 4 millimeters (13/39) No midline shift. No intracranial bleeds or masses. There is cerebral volume loss for age. There is periventricular white matter chronic small vessel ischemic change. The brainstem appears normal. Diffusion-weighted images demonstrate no acute ischemic insults. No chronic ischemic insults. Normal intravascular flow voids are present. Skull and face: Calvarial marrow is normal in signal. Orbits appear normal. Subcutaneous enhancing lesion within the left suboccipital scalp measuring 5 millimeters Sinuses: Sinuses and mastoids appear clear. IMPRESSION: 1. Several enhancing lesions with surrounding edema as described above, most consistent with metastatic disease. 2. Subcutaneous enhancing lesion within the left suboccipital scalp, may represent a small epidermal inclusion cyst. Recommend attention on follow-up to exclude metastatic disease. Dictated by: Arian Torres M.D. on 02/12/2023 at 8:26 Approved by: Arian Torres M.D. on 02/12/2023 at 8:35
== END ==
PROVIDERS: PCP Registered Nurse; Referring Provider Internal Medicine Hematology & Oncology; Visit Provider Internal Medicine Hematology & Oncology
DX: C34.90 Malignant neoplasm of unspecified part of unspecified bronchus or lung (principal); G93.9 Disorder of brain, unspecified; G93.6 Cerebral edema; M89.9 Disorder of bone, unspecified
CPT/HCPCS: 70553; A9579

== ENCOUNTER 2023-04-04 09:46 | Emergency (ER) | payer OTHER, SELFPAY ==
[2023-04-04 10:01] VITALS: BP 117/69; PULSE 102; RESP 26; TEMP 36.7; O2SAT 99; BMI 18.5
[2023-04-04 10:17] VITALS: BP 102/63; PULSE 99; O2SAT 99
[2023-04-04 11:21] LABS: Hematocrit 26.9 % (36-46); Hemoglobin 8.9 g/dL (12.0-16.0); Mean Corpuscular HGB Conc 33.3 % (30-36); Mean Corpuscular Hemoglobin 26.3 PG (26-34); Mean Corpuscular Volume 79.1 fL (80-100); Platelet Count 200 X10^3/uL (150-400); Red Cell Distribution Width 19.8 % (11.6-14.8)
--- NOTE | 2023-04-04 11:22 | ED_ITS ---
HPI - Abdominal Pain <Tracy Cervantes PA-C - Last Filed: 04/04/23 13:16> General Chief Complaint: Abdominal Pain Stated Complaint: no BM T-08 Time Seen by Provider: 04/04/23 10:48 Source: patient Mode of arrival: Ambulatory History of Present Illness HPI narrative: Patient is a 67-year-old female who is currently undergoing treatment for lung cancer who presents with abdominal pain and constipation. She is no history of constipation but reports no stool in at least 8, maybe 11, days. She currently drinks 3-4 ensures daily but does not eat much other food. She denies vomiting, does have some nausea from her cancer treatment for which she takes Compazine, which has a known side effect of constipation. She endorses mild crampy lower abdominal pain. She denies fever, chest pain, urinary symptoms. Related Data Home Medications Medication Instructions Recorded Confirmed amlodipine 5 mg tablet (Norvasc) 5 mg PO DAILY 11/22/22 01/29/23 latanoprost 0.005 % eye drops 1 drp ophthalmic (eye) DAILY 11/22/22 01/29/23 levothyroxine 88 mcg tablet 88 mcg PO DAILY 11/22/22 01/29/23 Previous Rx's Medication Instructions Recorded prochlorperazine maleate 10 mg 10 mg PO Q6H PRN Nausea #30 tabs 12/26/22 tablet (Compazine) folic acid 1 mg tablet 1 mg PO DAILY #30 tabs 12/28/22 ondansetron 4 mg disintegrating 4 mg PO Q4HR PRN Nausea #30 tabs 02/14/23 tablet metoclopramide HCl 10 mg tablet 10 mg PO Q6H PRN nausea and 04/04/23 vomiting #30 tabs Allergies Allergy/AdvReac Type Severity Reaction Status Date / Time pantoprazole Allergy Intermediate Rash Verified 04/04/23 10:04 Review of Systems <Tracy Cervantes PA-C - Last Filed: 04/04/23 13:16> Review of Systems ROS Unobtainable: All systems reviewed & are unremarkable except as noted in HPI and below Patient History <Tracy Cervantes PA-C - Last Filed: 04/04/23 13:16> Social History Smoking Status: Former smoker Smoking Status: Former smoker tobacco type: cigarettes alcohol intake frequency: 0-2 drinks per day Alcohol type: wine and hard liquor Substance Use Type: does not use Exam <Tracy Cervantes PA-C - Last Filed: 04/04/23 13:16> Narrative Exam Narrative: GENERAL: 67 year old patient appears stated age. Well-developed patient, appears anxious but not in pain. NEURO: AOx3. HEAD: Atraumatic. Normocephalic. CARDIOVASCULAR: Regular rate and rhythm without murmurs, gallops, or rubs. RESPIRATORY: Clear to auscultation. Mild dyspnea which she attributes to anxiety. GASTROINTESTINAL: Active bowel tones. Abdomen soft, non-tender, nondistended. EXTREMITIES: No edema or joint tenderness. SKIN: No rash or erythema of visible areas Initial Vital Signs Initial Vital Signs: Vital Signs Temperature 98.0 F 04/04/23 10:01 Pulse Rate 102 H 04/04/23 10:01 Respiratory Rate 26 H 04/04/23 10:01 Blood Pressure 117/69 04/04/23 10:01 Pulse Oximetry 99 04/04/23 10:01 Oxygen Delivery Method Room Air 04/04/23 10:01 <Shailesh King MD - Last Filed: 04/12/23 08:28> Initial Vital Signs Initial Vital Signs: Vital Signs Temperature 98.0 F 04/04/23 10:01 Pulse Rate 102 H 04/04/23 10:01 Respiratory Rate 26 H 04/04/23 10:01 Blood Pressure 117/69 04/04/23 10:01 Pulse Oximetry 99 04/04/23 10:01 Oxygen Delivery Method Room Air 04/04/23 10:01 Course <Tracy Cervantes PA-C - Last Filed: 04/04/23 13:16> Orders Ordered: Discontinued Medications Sodium Chloride (Normal Saline 0.9%) 1,000 mls @ 1,000 mls/hr IV BOLUS ONE Stop: 04/04/23 11:47 Last Admin: 04/04/23 12:56 Dose: Not Given Documented By: CAMELIA Sodium Biphosphate/Sodium Phosphate (Fleets Enema) 1 each ID NOW ONE Stop: 04/04/23 11:22 Last Admin: 04/04/23 12:32 Dose: 1 each Documented By: EULALIA Vital Signs Vital signs: Vital Signs - 8 hr 04/04/23 10:01 04/04/23 10:17 Temperature 98.0 F Pulse Rate 102 H 99 H Respiratory Rate 26 H Blood Pressure 117/69 102/63 Pulse Oximetry 99 99 Oxygen Delivery Method Room Air Room Air <Shailesh King MD - Last Filed: 04/12/23 08:28> Orders Ordered: Discontinued Medications Sodium Chloride (Normal Saline 0.9%) 1,000 mls @ 1,000 mls/hr IV BOLUS ONE Stop: 04/04/23 11:47 Last Admin: 04/04/23 12:56 Dose: Not Given Documented By: CAMELIA Sodium Biphosphate/Sodium Phosphate (Fleets Enema) 1 each ID NOW ONE Stop: 04/04/23 11:22 Last Admin: 04/04/23 12:32 Dose: 1 each Documented By: EULALIA Vital Signs Vital signs: Vital Signs - 8 hr 04/04/23 10:01 04/04/23 10:17 Temperature 98.0 F Pulse Rate 102 H 99 H Respiratory Rate 26 H Blood Pressure 117/69 102/63 Pulse Oximetry 99 99 Oxygen Delivery Method Room Air Room Air MDM - Abdominal Pain <Trayc Cervantes PA-C - Last Filed: 04/04/23 13:16> Lab Data 04/04/23 11:08 04/04/23 11:08 Labs: Lab Results 04/04/23 04/04/23 Range/Units 11:08 11:08 WBC 1.7 L* (4.5-11.0) X10^3/uL RBC 3.40 L (4.0-5.2) X10^6/uL Hgb 8.9 L (12.0-16.0) g/dL Hct 26.9 L (36-46) % MCV 79.1 L (80-100) fL MCH 26.3 (26-34) PG MCHC 33.3 (30-36) % RDW 19.8 H (11.6-14.8) % Plt Count 200 (150-400) X10^3/uL Neut % (Auto) Not Reportable Lymph % (Auto) Not Reportable [place] % (Auto) Not Reportable Eos % (Auto) Not Reportable Baso % (Auto) Not Reportable Lymph # (Auto) Not Reportable [place] # (Auto) Not Reportable Baso # (Auto) Not Reportable Total Counted 50 Seg Neutrophils % 64.0 (38-70) % Band Neutrophils % 2.0 L (3-7) % Lymphocytes % (Manual) 16.0 L (25-45) % Monocytes % (Manual) 18.0 H (2-11) % Neutrophils # (Manual) 1122 L (7988-2611) /uL RBC Morphology See below Anisocytosis 1+ H Sodium 136 L (137-145) mmol/L Potassium 4.2 (3.4-5.1) mmol/L Chloride 100 (98-107) mmol/L Carbon Dioxide 26 (22-32) mmol/L BUN 18 H (7-17) mg/dL Creatinine 0.76 (0.52-1.04) mg/dL Estimated GFR > 60 (>60) mL/min BUN/Creatinine Ratio 23.7 H (6-22) Glucose 109 (80-110) mg/dL Calcium 9.8 (8.4-10.2) mg/dL Total Bilirubin 0.6 (0.2-1.3) mg/dL AST 40 H (14-36) IU/L ALT 41 H (<35) IU/L Alkaline Phosphatase 95 (38-126) U/L Total Protein 7.5 (6.3-8.2) g/dL Albumin 3.9 (3.5-5.0) g/dL Globulin 3.6 (1.7-4.1) g/dL Albumin/Globulin Ratio 1.1 (1.0-2.8) MDM Narrative Medical decision making narrative: Multiple etiologies for patient's symptoms considered including, but not limited to: Constipation, bowel obstruction, diverticulitis, mesenteric ischemia. History is consistent with constipation, especially in the setting of taking Compazine routinely for nausea. We will attempt fleets enema consider manual disimpaction and establish home bowel regimen. Patient able to stool after fleets enema and feels better. Discussed home regimen. Labs show normal chemistry panel with abnormal CBC; patient currently undergoing chemotherapy and with recent radiation, labs are not unexpected. She has scheduled follow up with her oncologist. She currently has no fever. Patient's symptoms improved over duration of stay with above-stated therapies. Findings and discharge diagnosis discussed with patient/family followed by verbalization of understanding Return precautions discussed with patient/family whom verbalize understanding of diagnosis and plan <Shailesh King MD - Last Filed: 04/12/23 08:28> Lab Data Labs: Lab Results 04/04/23 04/04/23 Range/Units 11:08 11:08 WBC 1.7 L* (4.5-11.0) X10^3/uL RBC 3.40 L (4.0-5.2) X10^6/uL Hgb 8.9 L (12.0-16.0) g/dL Hct 26.9 L (36-46) % MCV 79.1 L (80-100) fL MCH 26.3 (26-34) PG MCHC 33.3 (30-36) % RDW 19.8 H (11.6-14.8) % Plt Count 200 (150-400) X10^3/uL Neut % (Auto) Not Reportable Lymph % (Auto) Not Reportable [place] % (Auto) Not Reportable Eos % (Auto) Not Reportable Baso % (Auto) Not Reportable Lymph # (Auto) Not Reportable [place] # (Auto) Not Reportable Baso # (Auto) Not Reportable Total Counted 50 Seg Neutrophils % 64.0 (38-70) % Band Neutrophils % 2.0 L (3-7) % Lymphocytes % (Manual) 16.0 L (25-45) % Monocytes % (Manual) 18.0 H (2-11) % Neutrophils # (Manual) 1122 L (7234-5348) /uL RBC Morphology See below Anisocytosis 1+ H Sodium 136 L (137-145) mmol/L Potassium 4.2 (3.4-5.1) mmol/L Chloride 100 (98-107) mmol/L Carbon Dioxide 26 (22-32) mmol/L BUN 18 H (7-17) mg/dL Creatinine 0.76 (0.52-1.04) mg/dL Estimated GFR > 60 (>60) mL/min BUN/Creatinine Ratio 23.7 H (6-22) Glucose 109 (80-110) mg/dL Calcium 9.8 (8.4-10.2) mg/dL Total Bilirubin 0.6 (0.2-1.3) mg/dL AST 40 H (14-36) IU/L ALT 41 H (<35) IU/L Alkaline Phosphatase 95 (38-126) U/L Total Protein 7.5 (6.3-8.2) g/dL Albumin 3.9 (3.5-5.0) g/dL Globulin 3.6 (1.7-4.1) g/dL Albumin/Globulin Ratio 1.1 (1.0-2.8) Discharge Plan Departure Patient Disposition: Home Clinical Impression: Acute constipation Instructions: DI for Constipation Activity Restrictions/Additional Instructions: *You have been diagnosed with constipation. I think this is a side effect of your nausea medicine as well as likely related to your current diet and lack of activity. Stopped taking the prochlorperazine (Compazine) for nausea and take the metoclopramide (Reglan) which I have sent to [facility]. This medication does not cause constipation and, in fact, can increase the motility of your bowels. As we discussed, you should choose a fiber supplement and take that daily. You should also use MiraLax twice a day until you start stooling more regularly. You will need to titrate these products along with your diet, hydration, and activity status until you are having 1 soft easy to pass stool daily. If this is not working and you become very constipated again, you can use a Fleet's enema which is available [id number] at home. Return to the emergency room if you develop fever, severe abdominal pain, nausea or vomiting, or other serious symptoms. *What to do: *Please continue to take your regular medications as directed. [x ] New medication prescriptions sent to your pharmacy: [[facility]] [ ] New medication written as a paper prescription [ ] No new medications given *Please follow up with your primary care provider in 2-3 days, call for an appointment. Let them know you were seen in the Emergency Department and that we ask that you be seen in follow up. We will electronically transmit a record of today's note if your PCP is in our system *If you do not have a primary care provider please contact the [facility] Resource line at [phone]. They will ask some questions about your medical history and help get you set up with a doctor in the community. *Return to Emergency Department if you should have any new, worsening or concerning symptoms, such as [fever greater than 101 F, shaking chills, worsening pain, persistent vomiting or other concerning symptoms]. Prescriptions: New metoclopramide HCl 10 mg tablet 10 mg PO Q6H PRN (Reason: nausea and vomiting) Qty: 30 0RF No Action latanoprost 0.005 % Drops 1 drp OPHTHALMIC (EYE) DAILY levothyroxine 88 mcg Tablet 88 mcg PO DAILY amlodipine [Norvasc] 5 mg Tablet 5 mg PO DAILY prochlorperazine maleate [Compazine] 10 mg tablet 10 mg PO Q6H PRN (Reason: Nausea) Qty: 30 0RF folic acid 1 mg Tablet 1 mg PO DAILY Qty: 30 3RF ondansetron 4 mg tablet,disintegrating 4 mg PO Q4HR PRN (Reason: Nausea) Qty: 30 1RF Referrals: Emi Mays ARNP [Primary Care Provider] - Stand Alone Forms: Patient Portal/API <Shailesh King MD - Last Filed: 04/12/23 08:28> [facility] I was immediately available in the department for consultation. ?This documentation has been reviewed and I agree with assessment and plan. Supervised by Shailesh King MD
[2023-04-04 11:24] LABS: White Blood Cell Count 1.7 X10^3/uL (4.5-11.0)
[2023-04-04 11:25] LABS: Add Manual Diff / Slide Review YES
[2023-04-04 11:33] LABS: Alanine Aminotransferase 41 IU/L (<35); Albumin 3.9 g/dL (3.5-5.0); Albumin Globulin Ratio 1.1 (1.0-2.8); Alkaline Phosphatase 95 U/L (38-126); Aspartate Aminotransferase 40 IU/L (14-36); BUN Creatinine Ratio 23.7 (6-22); Bilirubin Total 0.6 mg/dL (0.2-1.3); Blood Urea Nitrogen 18 mg/dL (7-17); Calcium 9.8 mg/dL (8.4-10.2); Carbon Dioxide 26 mmol/L (22-32); Chloride 100 mmol/L (98-107); Estimated Glomerular Filt Rate > 60 mL/min (>60); Globulin 3.6 g/dL (1.7-4.1); Glucose 109 mg/dL (80-110); HEMOLYSIS 19 (0-50); Potassium 4.2 mmol/L (3.4-5.1); Sodium 136 mmol/L (137-145); Total Protein 7.5 g/dL (6.3-8.2)
[2023-04-04 11:53] LABS: Anisocytosis 1+; Neutrophils Absolute Manual 1122 /uL (3000-5900); Total Cells Counted 50
[2023-04-04] MEDS: FLEETS ENEMA 1 EACH PR (12:32)
[2023-04-04 13:27] VITALS: BP 110/60; PULSE 99; RESP 18; O2SAT 99
== END 2023-04-04 13:28 | disposition home or self-care (01) ==
PROVIDERS: Emergency Medicine; Emergency Provider Physician Assistant; PCP Registered Nurse
DX: K59.00 Constipation, unspecified (principal); R79.89 Other specified abnormal findings of blood chemistry
CPT/HCPCS: 80053; 85007; 85025; 99282

== ENCOUNTER → 2023-04-17 10:56 | Outpatient (CLI) | payer OTHER, SELFPAY ==
--- NOTE | 2023-04-17 11:01 | DI.RAD.S_ITS ---
PROCEDURE: XR CHEST 2V INDICATIONS: increased SOB post treatment TECHNIQUE: 2 views of the chest were acquired. COMPARISON: [facility], CR, XR CHEST 1 VIEW, 02/26/2023, 12:57. [facility], CR, XR CHEST 2V, 12/14/2022, 7:24. FINDINGS: Surgical changes and devices: Left port device is unchanged in positioning. Left central endobronchial stent device is unchanged in appearance. Lungs and pleura: Left upper lung zone consolidation/mass is not significantly changed accounting for differences in patient positioning and rotation. Mild patchy left mid and lower lung zone opacities . No new focal consolidation seen. Mild blunting of the bilateral costophrenic angles likely representing small pleural effusions. Mediastinum: Mediastinal contours are normal. Heart size is normal. Bones and chest wall: No suspicious bony abnormalities. Soft tissues appear unremarkable. IMPRESSION: Patchy left mid and lower lung zone airspace opacities which may represent atelectasis versus possible developing airspace disease if clinically appropriate. Suspected small bilateral pleural effusions. Accounting for differences in imaging technique and patient positioning, stable appearance of left superior perihilar mass/consolidation. Dictated by: Kiko Pemberton M.D. on 04/17/2023 at 17:56 Approved by: Kiko Pemberton M.D. on 04/17/2023 at 18:00
== END ==
PROVIDERS: PCP Registered Nurse; Referring Provider Internal Medicine Hematology & Oncology; Visit Provider Internal Medicine Hematology & Oncology
DX: Z79.899 Other long term (current) drug therapy (principal); R06.02 Shortness of breath
CPT/HCPCS: 71046

== ENCOUNTER 2023-04-29 07:56 | Inpatient (IN) | payer OTHER, SELFPAY ==
[2023-04-29] VITALS (22 sets, daily range): BP systolic 104–115; BP diastolic 56–67; PULSE 86–108; RESP 15–47; TEMP 36.4–37.4; O2SAT 96–100; BMI 20.4
--- NOTE | 2023-04-29 07:58 | DI.RAD.S_ITS ---
PROCEDURE: XR CHEST 1V INDICATIONS: chest pain TECHNIQUE: One view of the chest was acquired. COMPARISON: [facility], CT, CT CHEST WITH CONTRAST, 03/01/2023, 15:33. [facility], CR, XR CHEST 2V, 04/17/2023, 11:25. [facility], CR, XR CHEST 2V, 12/14/2022, 7:24. FINDINGS: Surgical changes and devices: Left-sided port with the catheter tip at the cavoatrial junction. Left bronchial stent. Lungs and pleura: Left upper lobe mass, unchanged. Right upper lobe opacity, new. No significant pleural effusions. No pneumothorax. Mediastinum: Mediastinal contours appear unchanged. Mediastinal mass seen on recent CT. Heart size is normal. Bones and chest wall: No suspicious bony lesions. Overlying soft tissues appear unremarkable. IMPRESSION: New right upper lobe opacity which is most consistent with pneumonia. Left upper lobe mass. Left bronchial stent. Dictated by: Satish Hall M.D. on 04/29/2023 at 8:27 Approved by: Satish Hall M.D. on 04/29/2023 at 8:30
--- NOTE | 2023-04-29 08:36 | ED_ITS ---
HPI - Chest Pain General Chief Complaint: Chest Pain Stated Complaint: chest pressure Time Seen by Provider: 04/29/23 08:00 History of Present Illness HPI narrative: 67-year-old woman with a history of lung cancer currently undergoing chemotheray after completing a course of radiation, hypertension presents with chest pressure since last night getting worse by this morning. Substernal to epigastric area and radiating around to both breasts, positionally if she is upright she is less uncomfortable. Her understanding of her cancer is that treatment is palliative but she is hoping for an extended period of time to enjoy remaining bits of life. She is DNR but would consider intubation if if it was a reversible situation such as an acute pneumonia. She and her partner note that after the most recent chemotherapy, 2 weeks ago, she did not rebound as she had previously. She is been having increasing pressure throughout her entire chest decreased energy and increased work of breathing. She did use an inhaler yesterday but does not typically need an inhaler. She is not on home oxygen. She has not reported nausea, vomiting or diarrhea. Related Data Home Medications Medication Instructions Recorded Confirmed amlodipine 5 mg tablet (Norvasc) 5 mg PO DAILY 11/22/22 04/29/23 latanoprost 0.005 % eye drops 1 drp ophthalmic (eye) BEDTIME 11/22/22 04/29/23 levothyroxine 88 mcg tablet 88 mcg PO DAILY 11/22/22 04/29/23 Previous Rx's Medication Instructions Recorded prochlorperazine maleate 10 mg 10 mg PO Q6H PRN Nausea #30 tabs 12/26/22 tablet (Compazine) folic acid 1 mg tablet 1 mg PO DAILY #30 tabs 12/28/22 ondansetron 4 mg disintegrating 4 mg PO Q4HR PRN Nausea #30 tabs 02/14/23 tablet metoclopramide HCl 10 mg tablet 10 mg PO Q6H PRN nausea and 04/04/23 vomiting #30 tabs Allergies Allergy/AdvReac Type Severity Reaction Status Date / Time pantoprazole Allergy Intermediate Rash Verified 04/04/23 10:04 Review of Systems Review of Systems Narrative: Pertinent positive and negative findings as per HPI Patient History Medical History (Updated 04/29/23 @ 13:06 by Nica Qiu MD) Hypertension Adenocarcinoma, lung Social History household members: spouse Smoking Status: Former smoker alcohol intake: former Smoking Status: Former smoker tobacco type: cigarettes alcohol intake frequency: 0-2 drinks per day Alcohol type: wine and hard liquor Substance Use Type: does not use Exam Initial Vital Signs Initial Vital Signs: Vital Signs Pulse Rate 107 H 04/29/23 08:02 Blood Pressure 113/56 L 04/29/23 08:02 Pulse Oximetry 98 04/29/23 08:02 General: Chronically ill-appearing in mild respiratory distress, able to speak in 4-5 word sentences and history is augmented by her partner. HEENT: Dry Moist mucous membranes, normal sclera with reactive pupils, Neck: No JVD, supple, no cervical adenopathy Respiratory: Lungs with diffuse rhonchi in all lung luciano, mild scattered wheezing, tachypnea, symmetrical rise and fall of chest wall Cardiac: Regular rate and rhythm no murmurs no bruits Abdomen: Soft, nontender, good bowel tones, no flank pain Skin: Thin, pale, no diaphoresis Neurologic: Globally weak but Grossly neurologically intact with no obvious asymmetries or abnormalities Extremities: No trauma, well perfused, no lower extremity edema Psych: Cooperative, appropriate insight and affect, anxious Course Orders Ordered: ED Orders 04/29/23 11:40 PRBC [Packed Cells Irradiated] Stat Type and Screen Stat Acetaminophen (Acetaminophen 325 Mg Tablet) 650 mg PO Q6H PRN PRN Reason: Fever/Mild Pain (1-3) Albuterol/Ipratropium (Albuterol/Ipratropium 3 Ml Ampul) 3 ml INH [id number] [facility] Last Admin: 04/29/23 16:50 Dose: 3 ml Documented By: FILIPE Azithromycin (Azithromycin 250 Mg Tablet) 500 mg PO DAILY [facility] Stop: 05/01/23 09:01 Last Admin: 04/29/23 13:47 Dose: 500 mg Documented By: CLL Folic Acid (Folic Acid 1 Mg Tablet) 1 mg PO DAILY [facility] Last Admin: 04/29/23 13:47 Dose: 1 mg Documented By: CLL Cefepime HCl 2 gm/ Sodium (Chloride) 100 mls @ 200 mls/hr IV Q12H PAULA Vancomycin HCl (Vancomycin) 1,000 mg in 200 mls @ 200 mls/hr IV Q12H PAULA Latanoprost (Latanoprost 0.005% Ophth 2.5 Ml) 1 drops EYE-BOTH BEDTIME [facility] Levothyroxine Sodium (Levothyroxine 88 Mcg Tablet) 88 mcg PO DAILY@0600 [facility] Lorazepam (Lorazepam 0.5 Mg Tablet) 0.25 mg PO Q6HR PRN PRN Reason: Anxiety Metoclopramide HCl (Metoclopramide 10 Mg/2 Ml Inj) 10 mg IV Q6HR PRN PRN Reason: Nausea And Vomiting Morphine Sulfate (Morphine 4 Mg/Ml Inj) 2 mg IV Q4HR PRN PRN Reason: severe pain or dyspnea Naloxone HCl (Naloxone 0.4 Mg/Ml Vial) 0.2 mg IV Q2MIN PRN PRN Reason: Opiate Reversal Ondansetron HCl (Ondansetron 4 Mg/2 Ml Inj) 4 mg IV Q6HR PRN PRN Reason: Nausea And Vomiting Polyethylene Glycol (Polyethylene Glycol 3350 17 Gm Powd.Pack) 17 gm PO DAILY PRN PRN Reason: Constipation Prochlorperazine (Prochlorperazine 10 Mg/2 Ml Vial) 10 mg IV Q6HR PRN PRN Reason: Nausea Sennosides (Sennosides 8.6 Mg Tablet) 8.6 mg PO BID PRN PRN Reason: Constipation Vancomycin HCl (Vancomycin Trough) 1 request MISC NOW ONE Stop: 04/30/23 21:31 Vancomycin HCl (Vancomycin Peak) 1 request MISC NOW ONE Stop: 05/01/23 00:01 Discontinued Medications Albuterol/Ipratropium (Albuterol/Ipratropium 3 Ml Ampul) 3 ml INH NOW ONE Stop: 04/29/23 08:57 Last Admin: 04/29/23 10:17 Dose: 3 ml Documented By: MR Albuterol/Ipratropium (Albuterol/Ipratropium 3 Ml Ampul) 3 ml INH [id number] PRN PRN Reason: shortness of breath/wheezing Aspirin (Aspirin 81 Mg Chew Tab) 324 mg PO NOW ONE Stop: 04/29/23 07:59 Last Admin: 04/29/23 08:33 Dose: Not Given Documented By: CTS Enoxaparin Sodium (Enoxaparin 40 Mg/0.4 Ml Syringe) 55 mg 1 mg/kg (55 mg) SUBCUT BID [facility] Last Admin: 04/29/23 11:52 Dose: Not Given Documented By: CTS Sodium Chloride (Normal Saline 0.9%) 1,000 mls @ 1,000 mls/hr IV BOLUS ONE Stop: 04/29/23 09:55 Last Infusion: 04/29/23 13:06 Dose: 1,000 mls/hr Documented By: Infusion: 04/29/23 12:30 Dose: 1,000 mls/hr Documented By: Infusion: 04/29/23 11:48 Dose: 0 mls/hr Documented By: Admin: 04/29/23 09:39 Dose: 1,000 mls/hr Documented By: NL Cefepime HCl 2 gm/ Sodium (Chloride) 100 mls @ 200 mls/hr IV NOW ONE Stop: 04/29/23 08:57 Last Infusion: 04/29/23 10:29 Dose: Infused Documented By: Admin: 04/29/23 09:39 Dose: 200 mls/hr Documented By: AUSTIN Vancomycin HCl (Vancomycin) 1,000 mg in 200 mls @ 200 mls/hr IV Q12H PAULA Last Infusion: 04/29/23 13:03 Dose: Infused Documented By: Infusion: 04/29/23 11:48 Dose: 200 mls/hr Documented By: Admin: 04/29/23 10:29 Dose: 200 mls/hr Documented By: AUSTIN Sodium Chloride (Normal Saline 0.9%) 1,000 mls @ 100 mls/hr IV CONT PAULA Stop: 04/30/23 00:14 Last Admin: 04/29/23 18:23 Dose: Not Given Documented By: CLL Ketorolac Tromethamine (Ketorolac 30 Mg/Ml Vial) 15 mg IV NOW ONE Stop: 04/29/23 08:57 Last Admin: 04/29/23 09:38 Dose: 15 mg Documented By: NL Lorazepam (Lorazepam 2 Mg/Ml Inj) 0.25 mg IV NOW ONE Stop: 04/29/23 09:02 Last Admin: 04/29/23 09:39 Dose: 0.25 mg Documented By: AUSTIN Lorazepam (Lorazepam 0.5 Mg Tablet) 0.5 mg PO Q6HR PRN PRN Reason: Anxiety Tbo-Filgrastim (Tbo-Filgrastim 300 Mcg/0.5 Ml Syringe) 300 mcg SUBCUT NOW ONE Stop: 04/29/23 12:16 Last Admin: 04/29/23 13:12 Dose: 300 mcg Documented By: ROLANDO Vancomycin HCl (Vancomycin Per Pharmacy) 1 request MISC NOW ONE Stop: 04/29/23 09:02 Last Admin: 04/29/23 10:54 Dose: Not Given Documented By: AUSTIN Vancomycin HCl (Vancomycin Per Pharmacy) 1 request MISC NOW ONE Stop: 04/29/23 12:02 Last Admin: 04/29/23 17:50 Dose: Not Given Documented By: ROLANDO Vital Signs Vital signs: Vital Signs - 8 hr 04/29/23 11:30 04/29/23 11:30 04/29/23 11:50 Pulse Rate 98 H Respiratory Rate 23 26 H Blood Pressure 112/63 Pulse Oximetry 100 99 Oxygen Delivery Method Nasal Cannula Room Air Oxygen Flow Rate 2 MDM - Chest Pain Lab Data 04/29/23 08:30 04/29/23 08:30 Labs: Lab Results 04/29/23 04/29/23 04/29/23 Range/Units 08:30 09:10 09:53 WBC 1.6 L* (4.5-11.0) X10^3/uL RBC 2.57 L (4.0-5.2) X10^6/uL Hgb 7.3 L (12.0-16.0) g/dL Hct 21.3 L (36-46) % MCV 83.0 (80-100) fL MCH 28.5 (26-34) PG MCHC 34.3 (30-36) % RDW 19.8 H (11.6-14.8) % Plt Count 33 L* (150-400) X10^3/uL Neut % (Auto) Not Reportable Lymph % (Auto) Not Reportable Carlton % (Auto) Not Reportable Eos % (Auto) Not Reportable Baso % (Auto) Not Reportable Lymph # (Auto) Not Reportable Carlton # (Auto) Not Reportable Baso # (Auto) Not Reportable Total Counted 50 Seg Neutrophils % 36.0 L (38-70) % Band Neutrophils % 12.0 H (3-7) % Lymphocytes % (Manual) 28.0 (25-45) % Monocytes % (Manual) 20.0 H (2-11) % Eosinophils % (Manual) 2.0 (2-4) % Metamyelocytes % 2.0 H (-0) % Neutrophils # (Manual) 768 L (1179-2253) /uL RBC Morphology Normal morphology PT 14.3 H (10.1-12.7) SECONDS INR 1.2 (0.9-1.3) APTT 25 L (26-36) SECONDS ABG Sample Site Right radial ABG pH 7.74 H* (7.35-7.45) ABG pCO2 17.5 L* (35-45) mmHg ABG pO2 119 H (80-100) mmHg ABG HCO3 24 (23-27) mmol/L ABG Total CO2 24 (23-27) mmol/L ABG O2 Saturation 100 (95-100) % ABG Base Excess 5.0 H (-2-3) mmol/L FiO2 21 Sodium 133 L (137-145) mmol/L Potassium 3.6 (3.4-5.1) mmol/L Chloride 97 L (98-107) mmol/L Carbon Dioxide 27 (22-32) mmol/L BUN 14 (7-17) mg/dL Creatinine 0.78 (0.52-1.04) mg/dL Estimated GFR > 60 (>60) mL/min BUN/Creatinine Ratio 17.9 (6-22) Glucose 114 H (80-110) mg/dL Lactate 2.2 H (0.7-2.1) mmol/L Calcium 10.0 (8.4-10.2) mg/dL Magnesium 2.1 (1.6-2.3) mg/dL Total Bilirubin 0.5 (0.2-1.3) mg/dL AST 64 H (14-36) IU/L ALT 95 H (<35) IU/L Alkaline Phosphatase 112 (38-126) U/L Total Creatine Kinase 34 (30-135) U/L Troponin I < 0.012 (0.01-0.034) ng/mL NT-Pro-B Natriuret Pep 307 H (<125) pg/mL Total Protein 7.3 (6.3-8.2) g/dL Albumin 3.5 (3.5-5.0) g/dL Globulin 3.8 (1.7-4.1) g/dL Albumin/Globulin Ratio 0.9 L (1.0-2.8) Lipase 118 (23-300) U/L Procalcitonin 0.14 (<0.5) ng/mL Chlamy pneumoniae PCR Not detected (Not Detect) Adenovirus (PCR) Not detected (Not Detect) B.parapertussis DNA PCR Not detected (Not Detecte) Coronavirus OC43 (PCR) Not detected (Not Detect) Coronavirus HKU1 (PCR) Not detected (Not Detect) Coronavirus 229E (PCR) Not detected (Not Detect) SARS-CoV-2 (PCR) Not detected (Not Detecte) Coronavirus NL63 (PCR) Not detected (Not Detect) Human Metapneumovir PCR Not detected (Not Detect) Influenza A (PCR) Not detected (Not Detect) Influenza Type B (PCR) Not detected (Not Detect) M. pneumoniae (PCR) Not detected (Not Detect) Parainfluenza 1 (PCR) Not detected (Not Detect) Parainfluenza 2 (PCR) Not detected (Not Detect) Parainfluenza 3 (PCR) Not detected (Not Detect) Parainfluenza 4 (PCR) Not detected (Not Detect) RSV (PCR) Not detected (Not Detect) Entero/Rhino (PCR) Not detected (Not Detect) Blood Type Antibody Screen Crossmatch 04/29/23 04/29/23 Range/Units 10:42 11:40 WBC (4.5-11.0) X10^3/uL RBC (4.0-5.2) X10^6/uL Hgb (12.0-16.0) g/dL Hct (36-46) % MCV (80-100) fL MCH (26-34) PG MCHC (30-36) % RDW (11.6-14.8) % Plt Count (150-400) X10^3/uL Neut % (Auto) Lymph % (Auto) Carlton % (Auto) Eos % (Auto) Baso % (Auto) Lymph # (Auto) Carlton # (Auto) Baso # (Auto) Total Counted Seg Neutrophils % (38-70) % Band Neutrophils % (3-7) % Lymphocytes % (Manual) (25-45) % Monocytes % (Manual) (2-11) % Eosinophils % (Manual) (2-4) % Metamyelocytes % (-0) % Neutrophils # (Manual) (2693-2791) /uL RBC Morphology PT (10.1-12.7) SECONDS INR (0.9-1.3) APTT (26-36) SECONDS ABG Sample Site ABG pH (7.35-7.45) ABG pCO2 (35-45) mmHg ABG pO2 (80-100) mmHg ABG HCO3 (23-27) mmol/L ABG Total CO2 (23-27) mmol/L ABG O2 Saturation (95-100) % ABG Base Excess (-2-3) mmol/L FiO2 Sodium (137-145) mmol/L Potassium (3.4-5.1) mmol/L Chloride (98-107) mmol/L Carbon Dioxide (22-32) mmol/L BUN (7-17) mg/dL Creatinine (0.52-1.04) mg/dL Estimated GFR (>60) mL/min BUN/Creatinine Ratio (6-22) Glucose (80-110) mg/dL Lactate 1.6 (0.7-2.1) mmol/L Calcium (8.4-10.2) mg/dL Magnesium (1.6-2.3) mg/dL Total Bilirubin (0.2-1.3) mg/dL AST (14-36) IU/L ALT (<35) IU/L Alkaline Phosphatase (38-126) U/L Total Creatine Kinase (30-135) U/L Troponin I (0.01-0.034) ng/mL NT-Pro-B Natriuret Pep (<125) pg/mL Total Protein (6.3-8.2) g/dL Albumin (3.5-5.0) g/dL Globulin (1.7-4.1) g/dL Albumin/Globulin Ratio (1.0-2.8) Lipase (23-300) U/L Procalcitonin (<0.5) ng/mL Chlamy pneumoniae PCR (Not Detect) Adenovirus (PCR) (Not Detect) B.parapertussis DNA PCR (Not Detecte) Coronavirus OC43 (PCR) (Not Detect) Coronavirus HKU1 (PCR) (Not Detect) Coronavirus 229E (PCR) (Not Detect) SARS-CoV-2 (PCR) (Not Detecte) Coronavirus NL63 (PCR) (Not Detect) Human Metapneumovir PCR (Not Detect) Influenza A (PCR) (Not Detect) Influenza Type B (PCR) (Not Detect) M. pneumoniae (PCR) (Not Detect) Parainfluenza 1 (PCR) (Not Detect) Parainfluenza 2 (PCR) (Not Detect) Parainfluenza 3 (PCR) (Not Detect) Parainfluenza 4 (PCR) (Not Detect) RSV (PCR) (Not Detect) Entero/Rhino (PCR) (Not Detect) Blood Type B Positive Antibody Screen Negative Crossmatch See Detail MDM Narrative Medical decision making narrative: CC: Worsening dyspnea Complicating co-morbidities: Lung cancer, completed radiation currently on chemotherapy Data collected from: patient, Social determinants of health that may influence the patients condition: CODE status discussion: Her understanding of her cancer is that treatment is palliative but she is hoping for an extended period of time to enjoy remaining bits of life. She is DNR but would consider intubation if if it was a reversible situation such as an acute pneumonia. Medical records reviewed: Oncology notes reviewed. With her initial diagnosis she ended up having bronchoscopy in 2 bronchial stents placed Differential considered: Pneumonia either bacterial or viral, sepsis, pneumothorax, pleural effusion, progressive cancer, acute coronary syndrome, congestive heart failure Exam documented above, pertinent findings include: Moderate respiratory distress concern for respiratory fatigue given her tachypnea, diffuse rhonchi in all lung luciano. No heart murmurs no abdominal pain no lower extremity edema no clinical signs of congestive heart failure Lab Test results independently reviewed as above. Pertinent findings: CBC shows pancytopenia worsening with her progressive chemotherapy. White count is currently 1.6, H&H is 7.3 and 21.3, platelets are 33 (there are no signs of active bleeding) Coagulation studies are benign Chemistries show appropriate renal function, ALT and AST are slightly elevated compared to a month ago at 64 and 95 respectively. Renal function is appropriate. Lipase is unremarkable Lactic acid is 2.2 ABG has a pH of 7.7 with a CO2 of 17.5 oxygen on 2 L is 100% Independently reviewed EKG, sinus tachycardia at 100, nonspecific STT wave changes however baseline EKGs poor. No acute ischemic changes Imaging studies independently reviewed: Chest x-ray shows a new right upper lobe opacity consistent with pneumonia. Again noted left upper lobe mass with bronchial stent. CT angiogram does show right lower lobe segmental and subsegmental pulmonary emboli with no right heart strain demonstrated. She also has a new right upper lobe pneumonia. Similar volume loss and opacity in the left lower lobe suspect persistent postobstructive pneumonia left lower lobe bronchial stent is in place. Left upper lobe and left mediastinal mass present in both smaller than prior studies. Discussed in real-time with radiologist Consultations: Reviewed with Dr. Sanchez, hospitalist. Will opt to use subcu Lovenox to treat her PE at this point. In the fact that she does have cancer and her H&H is so low and she is symptomatic with hypoxia will transfuse a unit of packed red cells. Dr. Sanchez talk with her oncologist to see if he recommends any granulocyte stimulating agents. Treatments: Fluids, broad-spectrum antibiotics, Lovenox, parenteral Ativan, 1 unit of packed red blood cells and DuoNeb Discussion: 67-year-old woman with a left upper lobe lung cancer presents with tachypnea. She is increasingly anxious and hyperventilating to the point that she has a respiratory alkalosis. Sepsis was initially presumed fluids and antibiotics for hospital-acquired and chemotherapy related pneumonia are initiated along with fluid resuscitation. She is given a nebulizer treatment with minimal overall change. CT scan of the chest confirms smaller overall cancer mass, new right upper lobe pneumonia and positive right lower lobe segmental and subsegmental pulmonary emboli without right heart strain. On re- evaluation the patient is doing much better. She responded nicely 2.2 5 mg of IV Ativan. Both she and her partner note that she has chronic anxiety and her partner notes that she very rarely complains of the anxiety. She remains tachypneic but not as much as on presentation. Reviewed findings as described above. Patient understands need for hospitalization for treatment of her pneumonia. We did have an extended discussion regarding intubation. They have not completely concluded that they would want to move to intubation. I explained to them this point she is doing well with nasal cannula oxygen and there was high-flow oxygen as well as BiPAP all as interventions available before we need to truly make any decisions regarding intubation. At this point she is improved enough that I do not suspect she will proceed to needing intubation. With the pulmonary emboli appreciated will start her on IV heparin. Case will be reviewed with the hospitalist questions are answered and at this point she is stable for admission to the hospital Severe Sepsis Criteria [ x] bacterial source of infection suspected and documented [ x ] 2 SIRS Criteria met [ ] HR >90 [ ] RR >20 [ ] fever or hypothermia [ ] leukocytosis/leukopenia/bandemia [ x ] Evidence of at least 1 organ system dysfunction [ ] Lactate > 2 [ ] BP < 90 or MAP <65, >40mm decrease from normal baseline [ ] Creat > 2.0 [ ] T. Bili > 2.0 [ ] platelet count < 100k [ ] altered mental status [ ] mechanical ventilation [ ] provider documentation of severe sepsis Severe Sepsis Determination. the patient has been screened and [x ] DOES meet criteria for severe sepsis [ ] DOES NOT meet criteria for severe sepsis Goal directed treatment Within 3 hours [ x] blood cx drawn prior to abx [ x ] broad spectrum abx started [ x ] lactic acid level checked [ ] lactic redrawn within 6 hours if >2.0 Septic Shock Criteria [ ] lactic > 4 at any time [ ] SBP ,90 or MAP , 65 [ ] documentation of septic shock Time Septic Shock diagnosed: [ ] Septic Shock Determination. the patient has been screened and [ ] DOES meet criteria for septic shock [ x ] DOES NOT meet criteria for septic shock Critical Care Time Critical Care Time Critical Care Time: Yes Total Critical Care Time: 33 Attestation: Critical care time is separate from other billable procedures. There is a high probability of a significant, sudden or life-threatening deterioration that requires my full and direct attention, intervention and personal management. This critical care time includes consultation with family and other consulting doctors, review of records, and interpretation of data from labs, EKGs and imaging as well as managements of respiratory failure and concerns for developing sepsis Discharge Plan Departure Patient Disposition: Admitted As Inpatient Clinical Impression: Acquired pancytopenia Adenocarcinoma, lung Qualifiers: Laterality: left Qualified Code(s): C34.92 - Malignant neoplasm of unspecified part of left bronchus or lung Pneumonia Qualifiers: Pneumonia type: due to unspecified organism Pulmonary embolism Qualifiers: Pulmonary embolism type: multiple subsegmental (without acute cor pulmonale) Q ualified Code(s): I26.94 - Multiple subsegmental pulmonary emboli without acute cor pulmonale Sepsis Qualifiers: Sepsis type: sepsis due to unspecified organism Sepsis acute organ dysfunction status: with acute organ dysfunction Severe sepsis acute organ dysfunction type: unspecified Admit Date/Time: 04/29/23 11:58 Admit Provider: Santo Sanchez
--- NOTE | 2023-04-29 08:38 | PC.NURSE ---
97% tachypneic with labored breathing. placed on 2L O2 via NC for comfort. states shes feeling better.
[2023-04-29 08:41] LABS: Hematocrit 21.3 % (36-46); Hemoglobin 7.3 g/dL (12.0-16.0); Mean Corpuscular HGB Conc 34.3 % (30-36); Mean Corpuscular Hemoglobin 28.5 PG (26-34); Red Blood Cell Count 2.57 X10^6/uL (4.0-5.2); Red Cell Distribution Width 19.8 % (11.6-14.8)
[2023-04-29 08:42] LABS: INR 1.2 (0.9-1.3); Prothrombin Time 14.3 SECONDS (10.1-12.7)
[2023-04-29 08:44] LABS: Add Manual Diff / Slide Review YES; Platelet Count 33 X10^3/uL (150-400); White Blood Cell Count 1.6 X10^3/uL (4.5-11.0)
[2023-04-29 08:45] LABS: PTT Partial Thromboplastin Tim 25 SECONDS (26-36)
[2023-04-29 08:47] LABS: Alanine Aminotransferase 95 IU/L (<35); Albumin 3.5 g/dL (3.5-5.0); Albumin Globulin Ratio 0.9 (1.0-2.8); Alkaline Phosphatase 112 U/L (38-126); Aspartate Aminotransferase 64 IU/L (14-36); BUN Creatinine Ratio 17.9 (6-22); Bilirubin Total 0.5 mg/dL (0.2-1.3); Blood Urea Nitrogen 14 mg/dL (7-17); Carbon Dioxide 27 mmol/L (22-32); Chloride 97 mmol/L (98-107); Creatine Kinase 34 U/L (30-135); Estimated Glomerular Filt Rate > 60 mL/min (>60); Globulin 3.8 g/dL (1.7-4.1); Glucose 114 mg/dL (80-110); HEMOLYSIS < 15 (0-50); Lipase 118 U/L (23-300); Magnesium 2.1 mg/dL (1.6-2.3); Potassium 3.6 mmol/L (3.4-5.1); Sodium 133 mmol/L (137-145); Total Protein 7.3 g/dL (6.3-8.2)
--- NOTE | 2023-04-29 08:56 | DI.CT.S_ITS ---
PROCEDURE: CT ANGIO CHEST PE PROTOCOL INDICATIONS: Current treatment for lung cancer, ? PE, ? new pneumoia TECHNIQUE: After the administration of intravenous contrast, 2 mm thick sections acquired from the pulmonary apices to the posterior costophrenic angles. 3-dimensional maximum intensity projection (MIP) coronal and sagittal reformats were then acquired through the thorax. For radiation dose reduction, the following was used: automated exposure control, adjustment of mA and/or kV according to patient size. COMPARISON: [facility], CR, XR CHEST 1V, 04/29/2023, 8:02. [facility], CR, XR CHEST 2V, 04/17/2023, 11:25. [facility], CT, CT CHEST WITH CONTRAST, 03/01/2023, 15:33. [facility], CT, CT ANGIO CHEST, 12/14/2022, 8:41. FINDINGS: Image quality: Excellent. Pulmonary arteries: Right lower lobe segmental and subsegmental pulmonary emboli, (). RV to LV ratio 0.8. Lungs and pleura: Left upper lobe juxta fissural mass measuring 2.4 x 2.2 cm, (), previously 3.3 x 2.4 cm on 03/01/2023. This measures 3.7 cm in the craniocaudal dimension, (), previously 4.2 cm. Partial collapse of the left lower lobe. There is scattered opacity in the left lower lobe Moderate ground-glass and consolidative opacity in the right upper lobe which is new. Upper airways are clear. Left lower lobe bronchial stent. Mild bronchiectasis. Trace left pleural fluid. No right pleural effusion. No pneumothorax. Mediastinum: Left mediastinal mass measuring 4.7 x 4.4 cm, (53), previously 5.2 x 4.3 cm. Left hilar node measuring 1 cm, (), previously 1.4 cm. Subcarinal node measuring 1.4 cm, (), previously 1.4 cm. Left-sided port with the catheter tip terminating at the cavoatrial junction. Heart size is normal, without pericardial effusion. Thoracic aorta is normal in caliber and enhancement. Mild esophageal thickening suspected. Bones and chest wall: No suspicious bony lesions. Ribs and thoracic spine appear intact throughout. Thyroid gland appears atrophic. No axillary or supraclavicular adenopathy. Abdomen: Visualized upper abdominal solid organs appear normal in the early arterial phase of enhancement. IMPRESSION: 1. Positive exam. Right lower lobe segmental and subsegmental pulmonary emboli. RV to LV ratio 0.8. No right heart strain demonstrated. 2. New right upper lobe pneumonia. 3. Similar are volume loss and opacity in the left lower lobe. Suspect persistent postobstructive pneumonia. Left lower lobe bronchial stent. 4. Left upper lobe juxta fissural mass measuring 2.4 cm is decreased in size. 5. Large mediastinal mass measuring 4.7 cm is decreased in size. 6. Mediastinal and left hilar adenopathy is stable to decreased in size. Comment: Findings were discussed with Nica Qiu at time of dictation. Dictated by: Satish Hall M.D. on 04/29/2023 at 9:47 Approved by: Satish Hall M.D. on 04/29/2023 at 10:03
[2023-04-29 08:58] LABS: Neutrophils Absolute Manual 768 /uL (3000-5900); RBC Morphology Normal Morphology; Total Cells Counted 50; Troponin I < 0.012 ng/mL (0.01-0.034)
[2023-04-29 09:12] LABS: Lactate (Lactic Acid) 2.2 mmol/L (0.7-2.1)
[2023-04-29 09:24] LABS: NT-proBNP (BNP-Adult 18+) 307 pg/mL (<125)
[2023-04-29 09:31] LABS: Procalcitonin 0.14 ng/mL (<0.5)
[2023-04-29] MEDS: KETOROLAC 30 MG/ML VIAL 15 MG IV (09:38)
[2023-04-29] MEDS: SODIUM CHLORIDE 0.9% 1,000 ML 1000 ML IV (09:39)
[2023-04-29] MEDS: CEFEPIME 2 GM in SODIUM CHLORIDE 0.9% 100 ML IV ×2 (09:39→19:38)
[2023-04-29] MEDS: LORazepam 2 MG/ML INJ 0.25 MG IV (09:39)
[2023-04-29 10:09] LABS: HCO3 ABG 24 mmol/L (23-27); Oxygen Saturation ABG 100 % (95-100); PCO2 ABG 17.5 mmHg (35-45); PO2 ABG 119 mmHg (80-100); TCO2 ABG 24 mmol/L (23-27); pH ABG 7.74 (7.35-7.45)
[2023-04-29 10:10] LABS: Allen Test for ABG Passed? Yes, Passed; Blood Gas Collection Site Right Radial; Fractionated Inspired Oxygen 21
[2023-04-29] MEDS: ALBUTEROL/IPRATROPIUM 3 ML AMPUL INH ×2 (10:17→16:50)
[2023-04-29 10:21] LABS: Adenovirus Not Detected (Not Detect); B. parapertussis Not Detected (Not Detecte); Bordetella pertussis Not Detected (Not Detect); Chlamydophila pneumoniae Not Detected (Not Detect); Coronavirus 229E Not Detected (Not Detect); Coronavirus HKU1 Not Detected (Not Detect); Coronavirus NL 63 Not Detected (Not Detect); Coronavirus OC43 Not Detected (Not Detect); Human Metapneumovirus Not Detected (Not Detect); Human Rhinovirus/Enterovirus Not Detected (Not Detect); Influenza A(No subj detected) Not Detected (Not Detect); Influenza B Not Detected (Not Detect); Mycoplasma pneumoniae Not Detected (Not Detect); Parainfluenza Virus 1 Not Detected (Not Detect); Parainfluenza Virus 2 Not Detected (Not Detect); Parainfluenza Virus 3 Not Detected (Not Detect); Parainfluenza Virus 4 Not Detected (Not Detect); Respiratory Syncytial Virus Not Detected (Not Detect); SARS- CoV-2 Not Detected (Not Detecte)
[2023-04-29] MEDS: VANCOMYCIN 1,000 MG/200 ML PIGGYBACK 200 MG IV ×2 (10:29→21:43)
[2023-04-29 11:04] LABS: Reflexed Lactate in 2 Hours Y
[2023-04-29 11:09] LABS: Lactate 2HR (Lactic Acid Rflx) 1.6 mmol/L (0.7-2.1)
--- NOTE | 2023-04-29 11:43 | PM.HP.1 ---
History of Present Illness History of Present Illness Chief complaint: chest pressure Narrative: Aimee Nunn is a 67yo F with PMH of lung cancer s/p L bronchial stent, currently undergoing chemo with carboplatin/pembrolizumab/pemetrexed plus radiation, HTN, hypothyroidism who presents with dyspnea, chest pain and fatigue. Patient last received chemo 2 weeks ago and didn't feel very well afterward like she usually does. She continued to have worsening fatigue, dyspnea and then developed chest pain so came to the ED. She was found to have bilateral PNA and PE. Her lung tumors were decreased in size from prior. Admitted for IV abx, and treatment of PE. Not requiring supp O2. She states she would like to be DNR, but ok with intubation. Denies lightheadedness, NV, abd pain or diarrhea. In the ED found to have platelets of 33k, WBC 1.6 with ANC [address] Bashir her oncologist called who recommended granix until ANC >1000, platelet transfusion if drops <30k and blood transfusion if Hgb <8. [facility] Medical History (Updated 04/29/23 @ 13:06 by Nica Qiu MD) Hypertension Adenocarcinoma, lung Social History household members: spouse Smoking Status: Former smoker alcohol intake: former Meds Home Medications and Allergies Home Medications Medication Instructions Recorded Confirmed Type amlodipine 5 mg tablet (Norvasc) 5 mg PO DAILY 11/22/22 04/29/23 History latanoprost 0.005 % eye drops 1 drp ophthalmic (eye) BEDTIME 11/22/22 04/29/23 History levothyroxine 88 mcg tablet 88 mcg PO DAILY 11/22/22 04/29/23 History prochlorperazine maleate 10 mg 10 mg PO Q6H PRN Nausea #30 tabs 12/26/22 04/29/23 Rx tablet (Compazine) folic acid 1 mg tablet 1 mg PO DAILY #30 tabs 12/28/22 04/29/23 Rx ondansetron 4 mg disintegrating 4 mg PO Q4HR PRN Nausea #30 tabs 02/14/23 04/29/23 Rx tablet metoclopramide HCl 10 mg tablet 10 mg PO Q6H PRN nausea and 04/04/23 04/29/23 Rx vomiting #30 tabs Allergies Allergy/AdvReac Type Severity Reaction Status Date / Time pantoprazole Allergy Intermediate Rash Verified 04/04/23 10:04 Review of Systems Review of Systems Narrative: All other systems reviewed with the patient and are negative unless otherwise stated. Exam Vital Signs (past 8 hours): - 04/29/23 08:02 04/29/23 08:02 04/29/23 08:06 Temperature 97.5 F L Pulse Rate 107 H 108 H Respiratory Rate 16 Blood Pressure 113/56 L 113/56 L Pulse Oximetry 98 98 Oxygen Delivery Method Room Air 04/29/23 08:30 04/29/23 09:00 04/29/23 09:30 Temperature Pulse Rate 96 H 95 H 100 H Respiratory Rate 29 H 28 H 30 H Blood Pressure Pulse Oximetry 100 100 100 Oxygen Delivery Method 04/29/23 10:00 04/29/23 10:03 04/29/23 10:04 Temperature Pulse Rate 98 H 98 H Respiratory Rate 41 H 36 H Blood Pressure 108/60 Pulse Oximetry 100 100 Oxygen Delivery Method Oxygen Delivery Method Room Air Narrative Exam Narrative: GEN: ill-appearing, conversational dyspnea HEENT: moist mucous membranes, PERRL NECK: trachea midline, no JVD CV: regular rate and rhythm, no murmurs PULM: scattered bilateral wheezes and mild rhonchi ABD: soft, nontender, nondistended, no organomegaly EXT: warm and well perfused with no edema NEURO: awake, alert, oriented, no focal deficits Objective Labs 04/29/23 08:30 04/29/23 08:30 Labs: Laboratory Results - last 24 hr 04/29/23 04/29/23 04/29/23 08:30 09:10 09:53 WBC 1.6 L* RBC 2.57 L Hgb 7.3 L Hct 21.3 L MCV 83.0 MCH 28.5 MCHC 34.3 RDW 19.8 H Plt Count 33 L* Neut % (Auto) Not Reportable Lymph % (Auto) Not Reportable [place] % (Auto) Not Reportable Eos % (Auto) Not Reportable Baso % (Auto) Not Reportable Lymph # (Auto) Not Reportable [place] # (Auto) Not Reportable Baso # (Auto) Not Reportable Total Counted 50 Seg Neutrophils % 36.0 L Band Neutrophils % 12.0 H Lymphocytes % (Manual) 28.0 Monocytes % (Manual) 20.0 H Eosinophils % (Manual) 2.0 Metamyelocytes % 2.0 H Neutrophils # (Manual) 768 L RBC Morphology Normal morphology PT 14.3 H INR 1.2 APTT 25 L ABG Sample Site Right radial ABG pH 7.74 H* ABG pCO2 17.5 L* ABG pO2 119 H ABG HCO3 24 ABG Total CO2 24 ABG O2 Saturation 100 ABG Base Excess 5.0 H FiO2 21 Sodium 133 L Potassium 3.6 Chloride 97 L Carbon Dioxide 27 BUN 14 Creatinine 0.78 Estimated GFR > 60 BUN/Creatinine Ratio 17.9 Glucose 114 H Lactate 2.2 H Calcium 10.0 Magnesium 2.1 Total Bilirubin 0.5 AST 64 H ALT 95 H Alkaline Phosphatase 112 Total Creatine Kinase 34 Troponin I < 0.012 NT-Pro-B Natriuret Pep 307 H Total Protein 7.3 Albumin 3.5 Globulin 3.8 Albumin/Globulin Ratio 0.9 L Lipase 118 Procalcitonin 0.14 Chlamy pneumoniae PCR Not detected Adenovirus (PCR) Not detected B.parapertussis DNA PCR Not detected Coronavirus OC43 (PCR) Not detected Coronavirus HKU1 (PCR) Not detected Coronavirus 229E (PCR) Not detected SARS-CoV-2 (PCR) Not detected Coronavirus NL63 (PCR) Not detected Human Metapneumovir PCR Not detected Influenza A (PCR) Not detected Influenza Type B (PCR) Not detected M. pneumoniae (PCR) Not detected Parainfluenza 1 (PCR) Not detected Parainfluenza 2 (PCR) Not detected Parainfluenza 3 (PCR) Not detected Parainfluenza 4 (PCR) Not detected RSV (PCR) Not detected Entero/Rhino (PCR) Not detected 04/29/23 10:42 WBC RBC Hgb Hct MCV MCH MCHC RDW Plt Count Neut % (Auto) Lymph % (Auto) [place] % (Auto) Eos % (Auto) Baso % (Auto) Lymph # (Auto) [place] # (Auto) Baso # (Auto) Total Counted Seg Neutrophils % Band Neutrophils % Lymphocytes % (Manual) Monocytes % (Manual) Eosinophils % (Manual) Metamyelocytes % Neutrophils # (Manual) RBC Morphology PT INR APTT ABG Sample Site ABG pH ABG pCO2 ABG pO2 ABG HCO3 ABG Total CO2 ABG O2 Saturation ABG Base Excess FiO2 Sodium Potassium Chloride Carbon Dioxide BUN Creatinine Estimated GFR BUN/Creatinine Ratio Glucose Lactate 1.6 Calcium Magnesium Total Bilirubin AST ALT Alkaline Phosphatase Total Creatine Kinase Troponin I NT-Pro-B Natriuret Pep Total Protein Albumin Globulin Albumin/Globulin Ratio Lipase Procalcitonin Chlamy pneumoniae PCR Adenovirus (PCR) B.parapertussis DNA PCR Coronavirus OC43 (PCR) Coronavirus HKU1 (PCR) Coronavirus 229E (PCR) SARS-CoV-2 (PCR) Coronavirus NL63 (PCR) Human Metapneumovir PCR Influenza A (PCR) Influenza Type B (PCR) M. pneumoniae (PCR) Parainfluenza 1 (PCR) Parainfluenza 2 (PCR) Parainfluenza 3 (PCR) Parainfluenza 4 (PCR) RSV (PCR) Entero/Rhino (PCR) Assessment & Plan Assessment & Plan narrative: # bilateral PNA with left obstructive component -CTA chest with bilateral infiltrates consistent with PNA -cefepime, vanc, azithro for broad spectrum coverage given neutropenic -can stop vanc if MRSA screen negative -sputum culture ordered # likely cancer related pulmonary embolism -CTA with R sided PE without right heart strain -cannot start anticoag per oncology until platelets >50k -will start eliquis when platelets improve, likely lifelong # lung cancer under active treatment with chemotherapy -follows with Dr. Bashir, oncologist at [facility] -receiving carboplatic, pembrolizumab and pemetrexed plus radiation -lung tumors have decreased in size on CTA chest from prior -continue folic acid # pancytopenia -WBC 1.6, Hgb 7.3 and platelets 33k -given 1 unit PRBC -transfuse platelets if <30k -chemo precautions -granix 300mcg daily until ANC >1000 per oncology # dyspnea -secondary to above problems -morphine IV ordered PRN for air hunger # HTN -holding home meds as BP soft # hypothyroidism -continue synthroid -check TSH Code status is no CPR, intubation OK. DVT prophylaxis with SCDs. Proxy is . I have reviewed home meds and used all available resources to reconcile the home meds. Case discussed with ED physician/APC and patient will be admitted to the hospitalist service for further workup and management. This patient will be admitted as inpatient and will require greater than 2 midnights of hospital time to treat pneumonia and PE.
--- NOTE | 2023-04-29 11:50 | PC.NURSE ---
Pt's o2 100% on 2L NC. She says she is feeling much better, trialing patient on room air. O2 sats remain 99% room air after 10 minutes.
--- NOTE | 2023-04-29 13:06 | PC.NURSE ---
NaCl bolus is still infusing when patient is sent upstairs.
[2023-04-29] MEDS: TBO-FILGRASTIM 300 MCG/0.5 ML SYRINGE SUBCUT (13:12)
[2023-04-29] MEDS: FOLIC ACID 1 MG TABLET PO (13:47)
[2023-04-29] MEDS: AZITHROMYCIN 250 MG TABLET 500 MG PO (13:47)
--- NOTE | 2023-04-29 14:48 | CM.DANOTE ---
Patient is a 67 yo female who was admitted on 04/29/23 for Chest Pressure. Pt has [facility] for insurance and her PCP is Emi Mays. EMR was reviewed. Per MD, pt with hx of lung CA at baseline and chemo and admitted for SOB, dyspnea and labs and currently on O2. SW met bedside with pt and explained role and she confirms she lives in [place] with her Life Partner and confirms her DPOA is Vicki and is typically independent with ADLs and does not use DME for ambulation and still drives. Pt does not typically have home oxygen at baseline. Pt confirms her PCP and that her Oncologist is Dr. Bashir at [facility] and gets chemo every 3 weeks. Pt denies any hx of HH or SNF and states Vicki is retired and available to assist but confirms she is feeling below baseline and quite weak and would be agreeable to HH if needed and will see how pt progresses. Plan: SW to follow closely to confirm safe plan of d/c to home and r/o HH and any further identified discharge planning needs. DOMINGA Thrasher Discharge Planning/Care Management CM Discharge Assessment Start: 04/29/23 14:46 Freq: Status: Active Protocol: Document 04/29/23 14:46 BF (Rec: 04/29/23 14:48 BF [id number]) Discharge Planning Assessment Assigned Manager Environmental Health DOMINGA Gillette DPOA/Assigned Designee Name Life Partner Vicki Contact Information [phone] Advance Directives? Yes Advance Directives on File No History Provided By Patient,Medical Record Has Patient been admitted in last 30 No days? Prior Living Arrangements House Household Members spouse Type of transporation used prior to Drives own vehicle admit Independent with ADL's Yes Is patient alert and oriented? Yes Needs Assistance With Home Chores / Shopping Caregiver for Another No Community Services used prior to IV Therapy admission: Comment chemo every 3 weeks Comment r Comment r/o HH Barriers to Discharge No Discharge Plan Home Transportation Arrangement Sig Other Vicki can transport Additional Comment r/o HH pending progress Whiteboard Updated in Patient Room with Yes name and ext. # of Manager Environmental Health Review Status In Process Please Provide Date Initial DC 04/29/23 Assessment Was Performed Next Review Type Continued Stay Review
[2023-04-29 16:20] LABS: Appearance Urine UA CLEAR; Bilirubin Urine UA NEGATIVE (NEGATIVE); Color Urine UA YELLOW; Glucose Urine UA NEGATIVE (Negative); Ketones Urine UA NEGATIVE (NEGATIVE); Leukocyte Esterase Urine UA NEGATIVE (NEGATIVE); Nitrite Urine UA NEGATIVE (Negative); Occult Blood Urine UA NEGATIVE (Negative); Protein Urine UA NEGATIVE (Negative); Specific Gravity Urine UA <=1.005 (1.000-1.035); Urobilinogen Urine UA 0.2 E.U./dL (0.2)
[2023-04-29 16:21] LABS: pH Urine UA 5.5 (4.5-8.0)
[2023-04-29 16:29] LABS: Bacteria Urine None Seen; Culture Indicated Urine Cult Not Indicated; RBC Urine None Seen (0-5/HPF); Renal Epithelial Cells Urine 0-1/HPF (0-1/HPF); Squamous Epithelial Cell Urine None Seen (0-5/HPF); Transitional Epi Cells Urine 0-1/HPF (0-5/HPF); WBC Urine None Seen (0-5/HPF)
--- NOTE | 2023-04-29 17:00 | PC.NURSE ---
Assess- Patient admitted to room 216 with dx of Pnuemonia, PE, neutropenia, and hx of lung cancer. She is on RA and does become sob with exertion and sometimes at rest. We sent down a urine sample on patient but have not yet gotten a sputum culture. Her first unit blood is done at 1645 and she tolerated this well. Her friend is visiting in the room and patient is eating her dinner. Patient intially tried the pure wick but she was not a fan, we did get a clean catch urine sample and sent it. She is eating dinner now.
[2023-04-29] MEDS: LATANOPROST 0.005% OPHTH 2.5 ML 1 DROPS EYE-BOTH (19:39)
[2023-04-29 23:11] LABS: MRSA (Nasal) PCR DETECTED (Not Detect)
[2023-04-30] VITALS (8 sets, daily range): BP systolic 110–126; BP diastolic 65–69; PULSE 90–110; RESP 18–22; TEMP 36.4–37.3; O2SAT 93–99
[2023-04-30] MEDS: LEVOTHYROXINE 88 MCG TABLET PO (05:22)
[2023-04-30 05:59] LABS: Basophils Absolute Auto 0 /uL (0-100); Basophils Percent Auto 0.1 % (0-2); Eosinophils Absolute Auto 0 /uL (0-450); Eosinophils Percent Auto 0.2 % (2-4); Hematocrit 23.8 % (36-46); Lymphocytes Absolute Auto 300 /uL (1100-4500); Lymphocytes Percent Auto 4.5 % (25-40); Mean Corpuscular HGB Conc 33.8 % (30-36); Mean Corpuscular Hemoglobin 28.7 PG (26-34); Mean Corpuscular Volume 84.8 fL (80-100); Monocytes Absolute Auto 900 /uL (0-900); Monocytes Percent Auto 11.8 % (3-14); Neutrophils Absolute Auto 6400 /uL (1500-7000); Neutrophils Percent Auto 83.4 % (50-75); Platelet Count 42 X10^3/uL (150-400); Red Blood Cell Count 2.81 X10^6/uL (4.0-5.2); White Blood Cell Count 7.7 X10^3/uL (4.5-11.0)
[2023-04-30 06:18] LABS: Add Manual Diff / Slide Review SLIDE REVIEW
[2023-04-30 06:24] LABS: Alanine Aminotransferase 77 IU/L (<35); Albumin Globulin Ratio 0.9 (1.0-2.8); Alkaline Phosphatase 89 U/L (38-126); Aspartate Aminotransferase 42 IU/L (14-36); BUN Creatinine Ratio 13.8 (6-22); Bilirubin Total 0.4 mg/dL (0.2-1.3); Blood Urea Nitrogen 11 mg/dL (7-17); Calcium 9.2 mg/dL (8.4-10.2); Carbon Dioxide 24 mmol/L (22-32); Chloride 104 mmol/L (98-107); Estimated Glomerular Filt Rate > 60 mL/min (>60); Globulin 3.4 g/dL (1.7-4.1); Glucose 92 mg/dL (80-110); HEMOLYSIS < 15 (0-50); Potassium 3.3 mmol/L (3.4-5.1); Sodium 137 mmol/L (137-145); Total Protein 6.4 g/dL (6.3-8.2)
[2023-04-30 06:39] LABS: Procalcitonin 0.15 ng/mL (<0.5)
[2023-04-30 06:53] LABS: TSH w/ Reflex to FT4 5.51 uIU/mL (0.47-4.68)
[2023-04-30 07:01] LABS: Anisocytosis 1+; Platelet Estimate Decreased on smear
[2023-04-30 07:18] LABS: Free T4, Direct Thyroxine 1.67 ng/dL (0.78-2.19)
[2023-04-30] MEDS: ALBUTEROL/IPRATROPIUM 3 ML AMPUL INH ×3 (08:46→18:45)
[2023-04-30] MEDS: POTASSIUM CHLORIDE 20 MEQ TAB 40 MEQ PO (09:01)
[2023-04-30] MEDS: SODIUM CHLORIDE 0.9% FLUSH 10 ML IV ×2 (09:02→21:02)
[2023-04-30] MEDS: AZITHROMYCIN 250 MG TABLET 500 MG PO (09:02)
[2023-04-30] MEDS: FOLIC ACID 1 MG TABLET PO (09:02)
[2023-04-30] MEDS: CEFEPIME 2 GM in SODIUM CHLORIDE 0.9% 100 ML IV ×2 (09:06→20:16)
[2023-04-30 09:16] LABS: Hematocrit 26.1 % (36-46); Hemoglobin 8.7 g/dL (12.0-16.0); Mean Corpuscular HGB Conc 33.6 % (30-36); Mean Corpuscular Hemoglobin 28.7 PG (26-34); Mean Corpuscular Volume 85.4 fL (80-100); Platelet Count 51 X10^3/uL (150-400); Red Blood Cell Count 3.05 X10^6/uL (4.0-5.2); Red Cell Distribution Width 19.1 % (11.6-14.8); White Blood Cell Count 8.2 X10^3/uL (4.5-11.0)
[2023-04-30 10:06] LABS: Neutrophils Absolute Manual 7544 /uL (3000-5900); Total Cells Counted 100
[2023-04-30 10:08] LABS: Anisocytosis 1+; Toxic Granulation Present
[2023-04-30] MEDS: VANCOMYCIN 1,000 MG/200 ML PIGGYBACK 200 MG IV ×2 (10:34→22:05)
[2023-04-30] MEDS: APIXABAN 5 MG TABLET 10 MG PO ×2 (10:37→20:17)
[2023-04-30] MEDS: LORazepam 0.5 MG TABLET 0.25 MG PO (10:44)
--- NOTE | 2023-04-30 15:52 | P.PN_ITS ---
Subjective Subjective Interval history: Patient still SOB but not requiring O2. Nebs have helped some. Plt up to 51k so eliquis started. Hgb 8 and WBC 8.2 with ANC 7544. Exam Vital Signs (past 8 hours): - 04/30/23 08:00 04/30/23 08:46 04/30/23 12:00 Temperature 97.7 F 98.2 F Pulse Rate 94 H 92 H 107 H Respiratory Rate 20 18 21 Blood Pressure 110/68 113/65 Pulse Oximetry 98 98 97 Oxygen Delivery Method Room Air Oxygen Flow Rate 0 Fraction of Inspired Oxygen 21 04/30/23 13:00 Temperature Pulse Rate 102 H Respiratory Rate 20 Blood Pressure Pulse Oximetry 95 Oxygen Delivery Method Room Air Oxygen Flow Rate 0 Fraction of Inspired Oxygen 21 Fraction of Inspired Oxygen 21 SaO2/FiO2 Ratio 452 Oxygen Delivery Method Room Air Oxygen Flow Rate 0 Narrative Exam Narrative: GEN: fatigued appearing, conversational dyspnea HEENT: moist mucous membranes, PERRL NECK: trachea midline, no JVD CV: regular rate and rhythm, no murmurs PULM: scattered bilateral wheezes and rhonchi ABD: soft, nontender, nondistended, no organomegaly EXT: warm and well perfused with no edema NEURO: awake, alert, oriented, no focal deficits Objective Labs 04/30/23 09:09 04/30/23 05:12 Labs: Laboratory Results - last 24 hr 04/29/23 04/29/23 04/29/23 11:40 15:32 21:55 WBC RBC Hgb Hct MCV MCH MCHC RDW Plt Count Neut % (Auto) Lymph % (Auto) [place] % (Auto) Eos % (Auto) Baso % (Auto) Neut # (Auto) Lymph # (Auto) [place] # (Auto) Eos # (Auto) Baso # (Auto) Total Counted Seg Neutrophils % Band Neutrophils % Lymphocytes % (Manual) Monocytes % (Manual) Neutrophils # (Manual) Toxic Granulation Platelet Estimate RBC Morphology Anisocytosis Sodium Potassium Chloride Carbon Dioxide BUN Creatinine Estimated GFR BUN/Creatinine Ratio Glucose Calcium Total Bilirubin AST ALT Alkaline Phosphatase Total Protein Albumin Globulin Albumin/Globulin Ratio Procalcitonin TSH Free T4 Urine Color Yellow Urine Appearance Clear Urine pH 5.5 Ur Specific [place] <=1.005 Urine Protein Negative Urine Glucose (UA) Negative Urine Ketones Negative Urine Occult Blood Negative Urine Nitrate Negative Urine Bilirubin Negative Urine Urobilinogen 0.2 Ur Leukocyte Esterase Negative Urine RBC None seen Urine WBC None seen Ur Squamous Epith Cells None seen Ur Transition Epith Cell 0-1/hpf Ur Renal Epithelial Cell 0-1/hpf Urine Bacteria None seen Ur Culture Indicated? Cult not indicated Nasal Screen MRSA (PCR) Detected H Crossmatch See Detail 04/30/23 04/30/23 05:12 09:09 WBC 7.7 D 8.2 RBC 2.81 L 3.05 L Hgb 8.0 L 8.7 L Hct 23.8 L 26.1 L MCV 84.8 85.4 MCH 28.7 28.7 MCHC 33.8 33.6 RDW 19.0 H 19.1 H Plt Count 42 L 51 L Neut % (Auto) 83.4 H Lymph % (Auto) 4.5 L [place] % (Auto) 11.8 Eos % (Auto) 0.2 L Baso % (Auto) 0.1 Neut # (Auto) 6400 Lymph # (Auto) 300 L [place] # (Auto) 900 Eos # (Auto) 0 Baso # (Auto) 0 Total Counted 100 Seg Neutrophils % 79.0 H D Band Neutrophils % 13.0 H Lymphocytes % (Manual) 5.0 L Monocytes % (Manual) 3.0 Neutrophils # (Manual) 7544 H Toxic Granulation Present H Platelet Estimate Decreased on smear RBC Morphology See below See below Anisocytosis 1+ H 1+ H Sodium 137 Potassium 3.3 L Chloride 104 Carbon Dioxide 24 BUN 11 Creatinine 0.80 Estimated GFR > 60 BUN/Creatinine Ratio 13.8 Glucose 92 Calcium 9.2 Total Bilirubin 0.4 AST 42 H ALT 77 H Alkaline Phosphatase 89 Total Protein 6.4 Albumin 3.0 L Globulin 3.4 Albumin/Globulin Ratio 0.9 L Procalcitonin 0.15 TSH 5.51 H Free T4 1.67 Urine Color Urine Appearance Urine pH Ur Specific [place] Urine Protein Urine Glucose (UA) Urine Ketones Urine Occult Blood Urine Nitrate Urine Bilirubin Urine Urobilinogen Ur Leukocyte Esterase Urine RBC Urine WBC Ur Squamous Epith Cells Ur Transition Epith Cell Ur Renal Epithelial Cell Urine Bacteria Ur Culture Indicated? Nasal Screen MRSA (PCR) Crossmatch [facility] Medical History (Updated 04/29/23 @ 13:06 by Nica Qiu MD) Hypertension Adenocarcinoma, lung Social History household members: spouse Smoking Status: Former smoker alcohol intake: former Assessment & Plan Assessment & Plan narrative: # bilateral PNA with left obstructive component -CTA chest with bilateral infiltrates consistent with PNA -cefepime, vanc, azithro for broad spectrum coverage given neutropenic -can stop vanc if MRSA screen negative -sputum culture ordered but pt not making sputum # likely cancer related pulmonary embolism -CTA with R sided PE without right heart strain -cannot start anticoag per oncology until platelets >50k -plt now 51k -started eliquis 10mg BID x7 days, then 5mg BID # lung cancer under active treatment with chemotherapy -follows with Dr. Bashir, oncologist at [facility] -receiving carboplatic, pembrolizumab and pemetrexed plus radiation -lung tumors have decreased in size on CTA chest from prior -continue folic acid # pancytopenia -WBC 1.6, Hgb 7.3 and platelets 33k -given 1 unit PRBC -transfuse platelets if <30k -chemo precautions -granix 300mcg daily until ANC >1000 per oncology -given one dose of granix and ANC now 7000, granix stopped # dyspnea -secondary to above problems -morphine IV ordered PRN for air hunger # HTN -holding home meds as BP soft # hypothyroidism -continue synthroid -TSH 5, T4 normal Code status is no CPR, intubation OK. DVT prophylaxis with SCDs. Proxy is . I have reviewed home meds and used all available resources to reconcile the home meds. Dispo: Likely 1-2 more days until starts to feel better. Quality VTE Deep Vein Thrombosis/Pulmonary Embolism Present on Admission: Yes
[2023-04-30] MEDS: LATANOPROST 0.005% OPHTH 2.5 ML 1 DROPS EYE-BOTH (20:17)
[2023-04-30] MEDS: VANCOMYCIN TROUGH 1 REQUEST MISC (21:35)
[2023-05-01] MEDS: VANCOMYCIN PEAK 1 REQUEST MISC
[2023-05-01 01:22] LABS: Vancomycin Peak 26.9 ug/mL (20-40)
[2023-05-01 05:06] LABS: Hematocrit 23.5 % (36-46); Hemoglobin 7.9 g/dL (12.0-16.0); Mean Corpuscular HGB Conc 33.7 % (30-36); Mean Corpuscular Hemoglobin 28.7 PG (26-34); Platelet Count 65 X10^3/uL (150-400); Red Blood Cell Count 2.77 X10^6/uL (4.0-5.2); Red Cell Distribution Width 18.9 % (11.6-14.8); White Blood Cell Count 9.8 X10^3/uL (4.5-11.0)
[2023-05-01 05:11] VITALS: BP 117/69; PULSE 104; RESP 19; TEMP 36.8; O2SAT 94
[2023-05-01 05:16] LABS: Alanine Aminotransferase 67 IU/L (<35); Albumin 2.8 g/dL (3.5-5.0); Albumin Globulin Ratio 0.8 (1.0-2.8); Alkaline Phosphatase 87 U/L (38-126); Aspartate Aminotransferase 37 IU/L (14-36); BUN Creatinine Ratio 10.4 (6-22); Bilirubin Total 0.2 mg/dL (0.2-1.3); Blood Urea Nitrogen 8 mg/dL (7-17); Calcium 9.2 mg/dL (8.4-10.2); Carbon Dioxide 23 mmol/L (22-32); Chloride 106 mmol/L (98-107); Estimated Glomerular Filt Rate > 60 mL/min (>60); Globulin 3.5 g/dL (1.7-4.1); Glucose 101 mg/dL (80-110); HEMOLYSIS < 15 (0-50); Potassium 3.5 mmol/L (3.4-5.1); Sodium 138 mmol/L (137-145); Total Protein 6.3 g/dL (6.3-8.2)
[2023-05-01 05:32] LABS: Procalcitonin 0.17 ng/mL (<0.5)
[2023-05-01] MEDS: LEVOTHYROXINE 88 MCG TABLET PO (06:24)
[2023-05-01 06:38] LABS: Total Cells Counted 100
[2023-05-01 06:39] LABS: Neutrophils Absolute Manual 8624 /uL (3000-5900)
[2023-05-01 06:40] LABS: Anisocytosis 1+; Platelet Estimate Decreased on smear
[2023-05-01 07:25] VITALS: PULSE 102; RESP 28; O2SAT 99
[2023-05-01] MEDS: ALBUTEROL/IPRATROPIUM 3 ML AMPUL INH ×2 (07:25→13:38)
[2023-05-01 09:00] VITALS: BP 106/64; PULSE 104; RESP 19; TEMP 36.8; O2SAT 97
[2023-05-01] MEDS: CEFEPIME 2 GM in SODIUM CHLORIDE 0.9% 100 ML IV ×2 (09:00→20:29)
[2023-05-01] MEDS: FOLIC ACID 1 MG TABLET PO (09:01)
[2023-05-01] MEDS: APIXABAN 5 MG TABLET 10 MG PO ×2 (09:01→20:29)
[2023-05-01] MEDS: SODIUM CHLORIDE 0.9% FLUSH 10 ML IV ×2 (09:01→20:30)
[2023-05-01] MEDS: AZITHROMYCIN 250 MG TABLET 500 MG PO (09:01)
[2023-05-01] MEDS: POTASSIUM CHLORIDE 20 MEQ TAB PO (10:49)
[2023-05-01] MEDS: VANCOMYCIN 1,000 MG/200 ML PIGGYBACK 200 MG IV ×2 (11:21→21:14)
[2023-05-01] MEDS: MORPHINE 4 MG/ML INJ 2 MG IV (12:01)
[2023-05-01] MEDS: LORazepam 0.5 MG TABLET 0.25 MG PO (12:02)
--- NOTE | 2023-05-01 12:07 | CM.DPC ---
DCP Cont: Per MD, pt still getting IV-Abx and treating pneumonia and PEs and still SOB but on room air and not yet medically stable to d/c. Per RN, pt has been up to BR with SBA and no PT needs identified at this time as pt independent in room and not requiring physical assist. Plan: SW to follow for possible discharge home with Life Partner tomorrow 05/02 if medically stable and done with her course of IV-Abx and for any further identified discharge planning needs. Leta Blanc MSW
[2023-05-01 12:20] VITALS: BP 122/72; PULSE 80; RESP 26; TEMP 37.7; O2SAT 99
[2023-05-01 12:45] LABS: Troponin I < 0.012 ng/mL (0.01-0.034)
[2023-05-01 16:00] VITALS: BP 119/68; PULSE 89; RESP 20; TEMP 36.8; O2SAT 98
--- NOTE | 2023-05-01 17:58 | P.PN_ITS ---
Subjective Subjective Interval history: Patient had panic attack today which was helped immensely with morphine and ativan. She is ok going home on po ativan and morphine tomorrow. Exam Vital Signs (past 8 hours): - 05/01/23 12:20 Temperature 99.9 F H Pulse Rate 80 Respiratory Rate 26 H Blood Pressure 122/72 Pulse Oximetry 99 Oxygen Flow Rate 0 Fraction of Inspired Oxygen 21 SaO2/FiO2 Ratio 471 Oxygen Delivery Method Room Air Oxygen Flow Rate 0 Narrative Exam Narrative: GEN: fatigued appearing, conversational dyspnea HEENT: moist mucous membranes, PERRL NECK: trachea midline, no JVD CV: regular rate and rhythm, no murmurs PULM: scattered bilateral rhonchi ABD: soft, nontender, nondistended, no organomegaly EXT: warm and well perfused with no edema NEURO: awake, alert, oriented, no focal deficits Objective Labs 05/01/23 04:52 05/01/23 04:52 Labs: Laboratory Results - last 24 hr 04/30/23 05/01/23 05/01/23 21:32 00:30 04:52 WBC 9.8 RBC 2.77 L Hgb 7.9 L Hct 23.5 L MCV 85.0 MCH 28.7 MCHC 33.7 RDW 18.9 H Plt Count 65 L Total Counted 100 Seg Neutrophils % 61.0 Band Neutrophils % 27.0 H Lymphocytes % (Manual) 4.0 L Monocytes % (Manual) 8.0 Neutrophils # (Manual) 8624 H Platelet Estimate Decreased on smear RBC Morphology See below Anisocytosis 1+ H Sodium 138 Potassium 3.5 Chloride 106 Carbon Dioxide 23 BUN 8 Creatinine 0.77 Estimated GFR > 60 BUN/Creatinine Ratio 10.4 Glucose 101 Calcium 9.2 Total Bilirubin 0.2 AST 37 H ALT 67 H Alkaline Phosphatase 87 Troponin I Total Protein 6.3 Albumin 2.8 L Globulin 3.5 Albumin/Globulin Ratio 0.8 L Procalcitonin 0.17 Vancomycin Peak 26.9 Vancomycin Trough 14.0 05/01/23 12:16 WBC RBC Hgb Hct MCV MCH MCHC RDW Plt Count Total Counted Seg Neutrophils % Band Neutrophils % Lymphocytes % (Manual) Monocytes % (Manual) Neutrophils # (Manual) Platelet Estimate RBC Morphology Anisocytosis Sodium Potassium Chloride Carbon Dioxide BUN Creatinine Estimated GFR BUN/Creatinine Ratio Glucose Calcium Total Bilirubin AST ALT Alkaline Phosphatase Troponin I < 0.012 Total Protein Albumin Globulin Albumin/Globulin Ratio Procalcitonin Vancomycin Peak Vancomycin Trough PFSH Medical History (Updated 04/29/23 @ 13:06 by Nica Qiu MD) Hypertension Adenocarcinoma, lung Social History household members: spouse Smoking Status: Former smoker alcohol intake: former Assessment & Plan Assessment & Plan narrative: # bilateral PNA with left obstructive component -CTA chest with bilateral infiltrates consistent with PNA -cefepime, vanc, azithro for broad spectrum coverage given neutropenic -can stop vanc if MRSA screen negative -sputum culture ordered but pt not making sputum # likely cancer related pulmonary embolism -CTA with R sided PE without right heart strain -cannot start anticoag per oncology until platelets >50k -plt now 51k -started eliquis 10mg BID x7 days, then 5mg BID # lung cancer under active treatment with chemotherapy -follows with Dr. Bashir, oncologist at [facility] -receiving carboplatic, pembrolizumab and pemetrexed plus radiation -lung tumors have decreased in size on CTA chest from prior -continue folic acid -morphine PRN for air-hunger # pancytopenia, improving -WBC 1.6, Hgb 7.3 and platelets 33k -given 1 unit PRBC -transfuse platelets if <30k -chemo precautions -granix 300mcg daily until ANC >1000 per oncology -given one dose of granix and ANC now 7000, granix stopped # dyspnea -secondary to above problems -morphine IV ordered PRN for air hunger # HTN -holding home meds as BP soft # hypothyroidism -continue synthroid -TSH 5, T4 normal Code status is no CPR, intubation OK. DVT prophylaxis with SCDs. Proxy is . I have reviewed home meds and used all available resources to reconcile the home meds. Dispo: Home on 05/02. Quality VTE Deep Vein Thrombosis/Pulmonary Embolism Present on Admission: Yes
[2023-05-01 20:00] VITALS: BP 114/70; PULSE 97; RESP 17; TEMP 36.7; O2SAT 93
[2023-05-01] MEDS: LATANOPROST 0.005% OPHTH 2.5 ML 1 DROPS EYE-BOTH (20:30)
[2023-05-02 04:00] VITALS: BP 110/69; BP 120/73; PULSE 93; PULSE 99; RESP 18; RESP 20; TEMP 36.5; TEMP 36.8; O2SAT 94; O2SAT 96
[2023-05-02 05:35] LABS: Hematocrit 23.4 % (36-46); Hemoglobin 7.9 g/dL (12.0-16.0); Mean Corpuscular HGB Conc 33.8 % (30-36); Mean Corpuscular Volume 85.8 fL (80-100); Platelet Count 99 X10^3/uL (150-400); Red Blood Cell Count 2.73 X10^6/uL (4.0-5.2); Red Cell Distribution Width 19.6 % (11.6-14.8); White Blood Cell Count 7.8 X10^3/uL (4.5-11.0)
[2023-05-02] MEDS: LEVOTHYROXINE 88 MCG TABLET PO (05:49)
[2023-05-02 06:34] LABS: Alanine Aminotransferase 60 IU/L (<35); Albumin 2.9 g/dL (3.5-5.0); Albumin Globulin Ratio 0.9 (1.0-2.8); Alkaline Phosphatase 94 U/L (38-126); Aspartate Aminotransferase 34 IU/L (14-36); BUN Creatinine Ratio 10.3 (6-22); Bilirubin Total 0.1 mg/dL (0.2-1.3); Blood Urea Nitrogen 8 mg/dL (7-17); Calcium 9.5 mg/dL (8.4-10.2); Carbon Dioxide 23 mmol/L (22-32); Chloride 107 mmol/L (98-107); Estimated Glomerular Filt Rate > 60 mL/min (>60); Globulin 3.3 g/dL (1.7-4.1); Glucose 98 mg/dL (80-110); HEMOLYSIS < 15 (0-50); Potassium 3.8 mmol/L (3.4-5.1); Sodium 138 mmol/L (137-145); Total Protein 6.2 g/dL (6.3-8.2)
[2023-05-02 06:49] LABS: Procalcitonin 0.15 ng/mL (<0.5)
[2023-05-02 08:00] VITALS: BP 109/68; PULSE 91; RESP 16; TEMP 36.3; O2SAT 99
[2023-05-02 08:20] LABS: Neutrophils Absolute Manual 6786 /uL (3000-5900); Nucleated Red Blood Cells 1 #/Diff; RBC Morphology Normal Morphology; Total Cells Counted 100
[2023-05-02] MEDS: FOLIC ACID 1 MG TABLET PO (09:04)
[2023-05-02] MEDS: CEFEPIME 2 GM in SODIUM CHLORIDE 0.9% 100 ML IV (09:04)
[2023-05-02] MEDS: APIXABAN 5 MG TABLET 10 MG PO (09:04)
[2023-05-02] MEDS: SODIUM CHLORIDE 0.9% FLUSH 10 ML IV (09:05)
[2023-05-02] MEDS: MORPHINE 4 MG/ML INJ 2 MG IV (09:13)
--- NOTE | 2023-05-02 09:31 | PM.DS.1 ---
History of Present Illness History of Present Illness Chief complaint: chest pressure Narrative: Aimee Nunn is a 67yo F with PMH of lung cancer s/p L bronchial stent, currently undergoing chemo with carboplatin/pembrolizumab/pemetrexed plus radiation, HTN, hypothyroidism who presents with dyspnea, chest pain and fatigue. Patient last received chemo 2 weeks ago and didn't feel very well afterward like she usually does. She continued to have worsening fatigue, dyspnea and then developed chest pain so came to the ED. She was found to have bilateral PNA and PE. Her lung tumors were decreased in size from prior. Admitted for IV abx, and treatment of PE. Not requiring supp O2. She states she would like to be DNR, but ok with intubation. Denies lightheadedness, NV, abd pain or diarrhea. In the ED found to have platelets of 33k, WBC 1.6 with ANC [address] Bashir her oncologist called who recommended granix until ANC >1000, platelet transfusion if drops <30k and blood transfusion if Hgb <8. Discharge Providers Provider Date of admission: 04/29/23 11:58 Discharge Date: 05/02/23 Primary care physician: AJ Agustin Consults: 05/01/23 15:58 Consult to Physical Therapy Evaluate & Treat Comment: Physician Instructions: Evaluate and Treat 05/02/23 11:00 Consult to Dietitian, Adult Routine Comment: Reason For Exam: weight loss 05/02/23 11:01 Consult to Speech Therapy Evaluate & Treat Comment: Physician Instructions: Evaluate and treat Discharge provider: Santo Sanchez DO Summary Hospital Course Discharge Diagnosis: # sepsis secondary to bilateral PNA with left obstructive component, sepsis now resolved -initial WBC 1.6, HR >100 and RR >20 -CTA chest with bilateral infiltrates consistent with PNA -cefepime, vanc, azithro for broad spectrum coverage given neutropenic -can stop vanc if MRSA screen negative -sputum culture ordered but pt not making sputum -discharged on levaquin po to finish 7 day course -sent script for pacer per pt request to use with her inhaler at home # likely cancer related pulmonary embolism -CTA with R sided PE without right heart strain -cannot start anticoag per oncology until platelets >50k -plt now 51k and uptrending -started eliquis 10mg BID x7 days, then 5mg BID # lung cancer under active treatment with chemotherapy -follows with Dr. Bashir, oncologist at [facility] -receiving carboplatic, pembrolizumab and pemetrexed plus radiation -lung tumors have decreased in size on CTA chest from prior -continue folic acid -morphine PRN for air-hunger # pancytopenia, improving -WBC 1.6, Hgb 7.3 and platelets 33k -given 1 unit PRBC -transfuse platelets if <30k -chemo precautions -granix 300mcg daily until ANC >1000 per oncology -given one dose of granix and ANC now 7000, granix stopped # dyspnea -secondary to above problems -morphine IV ordered PRN for air hunger # HTN -holding home meds as BP soft # hypothyroidism -continue synthroid -TSH 5, T4 normal Hospital Course: Admitted for worsening SOB, fatigue and found to be septic with bilateral PNA and new PE's. Did not require supp O2. Treated with IV abx and put on eliquis. Per onc rec granix due to neutropenia, so given one dose and neutropenia improved. Due to underlying cancer, air hunger was a significant component for her so placed on morphine which helped her significantly. She was discharged home to finish a few more days of po levaquin, with po morphine liquid and po ativan sent for air hunger and cancer-related anxiety. Will f/up with oncology. Exam Vital Signs (past 8 hours): Fraction of Inspired Oxygen 21 SaO2/FiO2 Ratio 471 Oxygen Delivery Method Room Air Oxygen Flow Rate 0 Narrative Exam Narrative: GEN: fatigued appearing, conversational dyspnea HEENT: moist mucous membranes, PERRL NECK: trachea midline, no JVD CV: regular rate and rhythm, no murmurs PULM: scattered bilateral rhonchi ABD: soft, nontender, nondistended, no organomegaly EXT: warm and well perfused with no edema NEURO: awake, alert, oriented, no focal deficits Objective Labs 05/02/23 05:14 05/02/23 05:14 [facility] Medical History (Updated 04/29/23 @ 13:06 by Nica Qiu MD) Hypertension Adenocarcinoma, lung Social History household members: significant other Smoking Status: Former smoker alcohol intake: former Discharge Plan Discharge Plan Patient Disposition: Home Discharge orders & Medications Prescriptions: New morphine 10 mg/5 mL solution 5 mg PO Q4H PRN (Reason: shortness of breath) Qty: 100 0RF lorazepam 0.5 mg Tablet 0.25 mg PO Q6HR PRN (Reason: Anxiety) Qty: 30 0RF Rx Instructions: avoid simultaneous use with morphine (DME) Aerochamber Plus Flow-Vu Spacer See Rx Instructions .ROUTE .MEDSUPPLY Qty: 1 0RF Rx Instructions: As directed Eliquis 5 mg tablet See Rx Instructions .ROUTE .COMPLEX Qty: 90 0RF Rx Instructions: take 2 pills (10mg) twice daily for 4 days, then take 1 pill (5mg) twice daily thereafter Continued latanoprost 0.005 % Drops 1 drp OPHTHALMIC (EYE) BEDTIME Rx Instructions: both eyes levothyroxine 88 mcg Tablet 88 mcg PO DAILY amlodipine [Norvasc] 5 mg Tablet 5 mg PO DAILY prochlorperazine maleate [Compazine] 10 mg tablet 10 mg PO Q6H PRN (Reason: Nausea) Qty: 30 0RF folic acid 1 mg Tablet 1 mg PO DAILY Qty: 30 3RF ondansetron 4 mg tablet,disintegrating 4 mg PO Q4HR PRN (Reason: Nausea) Qty: 30 1RF metoclopramide HCl 10 mg tablet 10 mg PO Q6H PRN (Reason: nausea and vomiting) Qty: 30 0RF Follow up/Referrals: Emi Mays ARNP [Primary Care Provider] - 05/04/23 1:30 pm (Appt:05/04 @ 1:30 with Davon sanon ) Visit Report/Discharge Packet Instructions: DI for Pneumonia -- Adult, DI for Pulmonary Embolism Stand Alone Forms: Patient Portal/API, Stroke Signs & Symptoms Discharge Data Primary Care Provider: Emi Mays Discharges patient from system. Discharge Date/Time: 05/02/23 15:05 Quality VTE Deep Vein Thrombosis/Pulmonary Embolism Present on Admission: Yes
[2023-05-02] MEDS: VANCOMYCIN 1,000 MG/200 ML PIGGYBACK 200 MG IV (10:12)
--- NOTE | 2023-05-02 11:35 | PT.IIE ---
Current Diagnoses Pneumonia, unspecified organism (04/29/23) Medical History (Last Updated 04/29/23 @ 08:49 by Nica Qiu MD) Adenocarcinoma, lung Hypertension Physical Therapy Inpatient Evaluation/Re-Eval M1 PT/OT-IP Prior Functional Status Start: 05/02/23 12:28 Freq: NEEDED Status: Active Protocol: Document 05/02/23 11:12 AB (Rec: 05/02/23 12:40 AB [id number]) Medical Review Prior Functional Status Medical History Reviewed Yes Communication able to make needs known Mobility and Gait pt stated that she is independent with all mobilities and ambulation wtihout AD Prior Functional Level (Other details) pt with h/o Lung CA and is currently undergoing chemotherapy. Social History Household Members significant other Living Arrangements House Number of Floors (Floors) Two Floors Number of Stairs To Enter/Railing? pt stated that she will stay on the first level of the house has 2 steps L rail ascending to enter the house Home Environment High Toilet,Walk in Shower Home Equipment Shower Seat without Backrest, Hand Held Shower M2 PT-IP Current Condition Start: 05/02/23 12:28 Freq: NEEDED Status: Active Protocol: Document 05/02/23 11:12 AB (Rec: 05/02/23 12:40 AB [email or web address]) Physical Therapy Current Condition Current Condition Evaluation Date 05/02/23 Treatment Diagnosis pancytopenia; PNA; PE; generalized weakness Onset Date 04/29/23 M3 PT-IP Subjective Start: 05/02/23 12:28 Freq: NEEDED Status: Active Protocol: Document 05/02/23 11:12 AB (Rec: 05/02/23 12:40 AB [email or web address]) Subjective Physical Therapy Visit Type Type Initial Evaluation Visit Start Time 11:12 Visit Stop Time 11:35 Total Visit Minutes 23 Number of BROADCASTING EQUIPMENT MECHANIC Visits 0 Physical Therapy Visit Comments Patient Comments agreeable to do PT Therapy Pain Assessment Pain Present Pain Present Denied Pain M4 PT-IP Mobility and Gait Start: 05/02/23 12:28 Freq: NEEDED Status: Active Protocol: Document 05/02/23 11:12 AB (Rec: 05/02/23 12:40 AB [email or web address]) PT-Bed Mobility Assessment Supine to Sit Supine to Sit Independent PT-Transfer Assessment Sit to and From Stand Sit to and from Stand Standby Assistance,Use of Upper Extremities Equipment Transfer Assistive Device None,Gait Belt Orthotic/Prosthetic Devices or Brace: No Transfers Transfer Destination Chair Transfer Technique ambulated Transfer Ability Level of Assist Standby Assistance,Use of Upper Extremities Comments Mobility Comments pt supine in bed. BP: 110/71 and O2 sat at RA 100% but (+) SOB pt completed supine to sit independent. able to sit on EOB SBA. completed sit to stand SBA and ambulated in room without AD SBA. increase unsteadiness with ambulation towards end of ambulation but no LOB. pt sat on the chair. agreed to do stair training. pt completed up/down step stool with L rail CGA. pt agreed to stay up on the chair. positioned on the chair . call light and table placed within reach. Gait Assessment Gait Gait Assistance Required: Standby Assistance Distance (Feet) 50 Able to Maintain Weight Bearing Status Yes During Gait Assistive Devices Assistive Device None,Gait Belt Orthotic/Prosthetic Devices or Brace: No Gait Deviations General Gait Pattern Decreased Stride Length, Decreased Feet Clearance,Step- to Gait Factors Limiting Gait Function Factors Limiting Gait Function Decreased Activity Tolerance, Decreased Strength,Poor Balance,Respiratory Distress Stair Climbing Assessment Evaluation Level of Assist On Stairs Contact Guard Assistance Devices Stair Climbing Assistive Devices Left Railing Technique/Endurance Stair Climbing Direction Ascend and Descend Stair Climbing Technique Step to Step Number of Steps Climbed 1 Query Text: Stair Climbing Set # Repetitions (reps) 2 PT-Balance Assessment Sitting Balance and Reactions Static Sitting Balance Ability Normal Dynamic Sitting Balance Ability Normal Standing Balance and Reactions Static Standing Balance Ability Good Dynamic Standing Balance Ability Good Device Used without AD M5 PT-IP Objective Assessments Start: 05/02/23 12:28 Freq: NEEDED Status: Active Protocol: Document 05/02/23 11:12 AB (Rec: 05/02/23 12:40 AB [email or web address]) Orientation Orientation/Cognition Level of Alertness Alert Orientation Name,Age,Place,Situation Language Function Ability No Deficits Noted Safety Awareness Understands Safety Issues Memory Description No Deficits Noted Gross Range of Motion Lower Extremity ROM Assessment Within Functional Limits Strength Lower Extremity Strength Assessment Within Functional Limits Sensation Assessment Sensation Gross Sensation WNL Muscle Tone Muscle Tone WNL Yes M6 PT-IP Treatment Start: 05/02/23 12:28 Freq: NEEDED Status: Active Protocol: Document 05/02/23 11:12 AB (Rec: 05/02/23 12:40 AB [email or web address]) Physical Therapy Treatment Education Education Provided Safety M7 PT-IP Assessment and Plan Start: 05/02/23 12:28 Freq: NEEDED Status: Active Protocol: Document 05/02/23 11:12 AB (Rec: 05/02/23 12:40 AB [email or web address]) PT Summary Assessment and Plan Potential Rehabilitation Potential Fair Status of Condition at Evaluation Evolving Summary Impairments Pain,ROM,Strength,Balance,Bed Mobility,Transfers,Gait, Activity Tolerance Assessment Summary pt is a 67 y/o femal who presented to the ED for chest pain. pt admitted for PNA, PE on R lower lobe and pancytopenia. Pt with /o lung CA and is undergoing chemotherapy. pt requiring SBA with mobility and plans to go home with her partner to assist her. pt may go home when medically stable. Goals Transfer Goal Independent Gait Goal Independent Gait Distance 200 Other Goals up/down 2 steps L rail ascending mod I Days to Meet Goals 5 Frequency of Treatment Frequency Of Treatment Once a Day Treatment Plan Physical Therapy Treatment Plan Bed Mobility Training,Transfer Training,Gait Training, Therapeutic Exercise,Balance Retraining,Discharge Planning, Hot or Cold Pack,Neuromuscular Re-ed,Coordination Retraining Precautions Other Precautions droplet precautions( reverse precaution)and contact precautions (MRSA nares) Recommendations To Nursing Amount of Assist Needed Standby Assistance Discharge Recommendations PT Discharge Recommendations Home with Assistance Transportation Needs at Discharge Private Vehicle
--- NOTE | 2023-05-02 13:31 | DIET.CONS ---
Dietary Consultation Note Admission Date: 04/29/2023 11:58 Assessment: 67y F admitted for chest pressure found to have PNA and PEs related to her lung cancer that is being treated at [facility]. Pt requested consultation with RD for help managing weight loss during cancer tx. Pt states she maintained 130# most of her adult life and has been drinking up to 4 ONS daily to maintain weight. Pt was 120-125# up until 1w ago when she started experiencing current sx and could not eat or drink much of anything. Currently 118# With dx and treatment pt having some taste changes and food aversions, especially cruciferous vegetables and meat. Ht: 162.56 cm Wt: 53.977 kg (-9% UBW) BMI: 20.4 UBW: 59kg Last BM: 05/02/23 (05/02/23 09:38) MNA: 6 (malnourished) Jluis Score: 22 Diet: 04/29/23 Lunch General (Regular) Diet Diet Modifications: Nutrition Percent Meal Consumed 75% 05/02/23 09:38 Percent Meal Consumed 100% 05/01/23 14:07 Percent Meal Consumed ensure 05/01/23 09:25 Percent Meal Consumed 75% 04/30/23 15:00 Labs: RBC 2.73 X10^6/uL (4.0-5.2) L 05/02/23 05:14 Hgb 7.9 g/dL (12.0-16.0) L 05/02/23 05:14 Hct 23.4 % (36-46) L 05/02/23 05:14 Creatinine 0.78 mg/dL (0.52-1.04) 05/02/23 05:14 Lactate 1.6 mmol/L (0.7-2.1) 04/29/23 10:42 NT-Pro-B Natriuret Pep 307 pg/mL (<125) H 04/29/23 08:30 Nutrition Diagnosis: Severe Acute Protein Calorie Malnutrition r/t inadequate oral intake aeb pt with 9% unintentional weight loss in 3mo despite drinking up to 4 ONS daily, BMI 20.4 (severe for age), recent dx lung cancer on chemotherapy, taste changes and food aversions. Interventions: 1. Educated pt on MNT for oncology including increasing kcal content through soft protein foods and dietary fats, small frequent meals, lesser focus on F/V due to low kcal content. 2. Collaborated with pt on ways to support nutrition status depending on how pt is feeling and where she is on treatment cycle. Pt can continue 0-4 ONS daily depending on meals consumed. Pt will start eating scoops full fat cottage cheese, yogurt, nut butters when fatigued. Pt will add nut butter and heavy cream to oats for breakfast. Pt will try cold meats before warm to see if better tolerated. EER: 1620kcals (30kcal/kg per PCM), 70g PRO (1.3g/kg per PCM) Monitoring/Evaluations: POs, ONS tolerance Electronically Signed by: Hazel Dumont 05/02/23 13:31 Clinical Dietitian [address] [address]
--- NOTE | 2023-05-02 14:13 | ST.IPCSEOM ---
Visit Care Team Role Provider Type AJ Glaser Primary Care Provider Non-Staff Specialty: Family Practice Address: [address] [facility], [address], [place], [address] Email: Nica Qiu MD Emergency Provider Physician Referring Provider Specialty: Emergency Medicine Address: [address] [place] [address], [id number] Email: Santo Sanchez DO Admit Provider Physician Attending Provider Specialty: Internal Medicine Address: [address] [place] [address], [id number] Email: [email or web address] Current Diagnoses Pneumonia, unspecified organism (04/29/23) Past Medical History (Last Updated 04/29/23 @ 08:49 by Nica Qiu MD) Adenocarcinoma, lung (Medical) Hypertension (Medical) Speech-Language Pathology Swallow Evaluation DIRECTOR SALES SUPPORT Clinical Swallow Evaluation Start: 05/02/23 13:55 Freq: Status: Active Protocol: Document 05/02/23 13:55 CG (Rec: 05/02/23 14:13 CG [id number]) Clinical Swallow Evaluation Session Time Visit Start Time 13:00 Visit Stop Time 13:30 Total Visit Minutes 30 Visit Information Visit Number [address] Sanchez Reason for Referral dysphagia, globus sensation Setting Assessment Location Acute Care Visit Type Note Type Initial evaluation Next Note Type Next Note Type Discharge Summary Patient Information Identification Type Name History Per H&P: Aimee Nunn is a 67yo F with PMH of lung cancer s/p L bronchial stent, currently undergoing chemo with carboplatin/pembrolizumab /pemetrexed plus radiation, HTN, hypothyroidism who presents with dyspnea, chest pain and fatigue. Patient last received chemo 2 weeks ago and didn't feel very well afterward like she usually does. She continued to have worsening fatigue, dyspnea and then developed chest pain so came to the ED. She was found to have bilateral PNA and PE. Her lung tumors were decreased in size from prior. Admitted for IV abx, and treatment of PE. Not requiring supp O2. She states she would like to be DNR, but ok with intubation. Denies lightheadedness, NV, abd pain or diarrhea. In the ED found to have platelets of 33k, WBC 1.6 with ANC [address] Basihr her oncologist called who recommended granix until ANC > 1000, platelet transfusion if drops <30k and blood transfusion if Hgb <8. Pt was referred to speech therapy due to complaints to DO that she is having difficulty swallowing. Subjective Observations Pt was seated upright in hospital chair upon ST entry to room, with Ensure and water at bedside. She was short of breath, but oriented and cooperative. Reported by Patient/Caregiver Pain/Discomfort Yes Location Neck Other Symptoms Difficulty swallowing solids Comment Pt stated that she has been avoiding solid foods for months, partially due to aversion from solid food secondary to cancer treatment. Additionally, she states she feels as though something is sticking when swallowing, and points to the level of the sternal notch when asked where food is sticking, but also points to the back of her neck . She states she feels tightness in the back of her neck when swallowing solid foods as if food is stuck back . States that soft foods such as pudding, mashed potatoes, etc, go down okay. She has been eating soft foods and supplementing with Ensure for nutrition. Current Diet Minced & Moist (IDDSI 5) The IDDSI Framework Protocol: IDDSI.1 Objective Assessment Mental Status Alert,Responsive,Cooperative Oral Integrity WFL Dentition Within normal limits Lip Function Within normal limits Pucker Within normal limits Lip Retraction Within normal limits Alternating Pucker/Lip Retraction Within normal limits Tongue Function Within normal limits Observations of Tongue at Rest Within normal limits Tongue Protrusion Within normal limits Tongue Lateralization Within normal limits Jaw Function Within normal limits Jaw Opening Within normal limits Jaw Closing Within normal limits Hard/Soft Palate Function Within normal limits Comment Lingual, labial, mandibular function all appear WFL. Oral hygeine appeared WFL. Cough was weak and voice was hoarse and breathy, indicating airway protection is likely reduced. Food and Liquid Trials Position During Assessment Upright (90 degrees) Liquids Trialed Thin (IDDSI 0) Administration Type Cup single sip,Cup consecutive sips Oral Impairment Within normal limits Oral Phase Comments Labial seal, A-P propulsion, swallow initiation all appeared WFL. Pharyngeal Impairment Within functional limits Pharyngeal Phase Comments After trials thin liquids, mild throat clearing was observed across 3 initial trials. DIRECTOR SALES SUPPORT cued pt to perform a partial chin tuck, which resulted in resolution of throat clearing. No coughing or wet vocal quality was observed across trials, although silent aspiration cannot be ruled out without an instrumental assessment. After the swallow, pt stated she felt like she had to burp, and some belching was observed. This is indicative of possible esophageal etiology which may be related to globus sensation. Strategies Attempted Chin tuck Results No overt s/sx aspiration were observed across trials of thin liquids, though throat clearing was observed after sips of thin when chin tuck was not utilized. Additionally , silent aspiration cannot be ruled out without an instrumental assessment. Chin tuck resolved throat clearing after thins. Solids were not trialed due to pt having aversions to solid foods and no difficulty on soft solids/ purees. The IDDSI Framework Protocol: IDDSI.1 Findings Swallowing Function Other dysphagia Swallowing Function Comments Functional for nutrition at this time, follow OP with MBS Severity of Swallow Impairment Within functional limits Prognosis Fair Based on Comorbidities Recommendations Instrumental Assessment Yes Recommended Solids Minced & Moist (IDDSI 5) Recommended Liquids Thin (IDDSI 0) Other Recommendations DIRECTOR SALES SUPPORT recommends: 1. Continue with soft/puree solids/Ensure as tolerated. 2. Follow up with outpatient MBSS for imaging of swallow function. 3. If progressing to solid foods (as tolerated), consume one bite at a time, with a sip of liquid in between each bite. 4. Remain upright 90 degrees during meals and for 30 minutes after meals. 5. Use partial chin-tuck/ downward chin posture during swallows. Safety Precautions/Swallowing Remain upright (90 degrees) Recommendations during all oral intake,Small bites and sips when eating, Slow rate; swallow between bites Medication Recommendations As Tolerated Discharge Recommendations Home Comments Follow up with outpatient MBS Education Patient/Caregiver Education Described results of evaluation,Patient expressed understanding of evaluation, Patient expressed agreement with goals & treatment plans
--- NOTE | 2023-05-02 14:13 | ST.IPCSEOM ---
Visit Care Team Role Provider Type AJ Glaser Primary Care Provider Non-Staff Specialty: Family Practice Address: [address] [facility], [address], [place], [address] Email: Nica Qiu MD Emergency Provider Physician Referring Provider Specialty: Emergency Medicine Address: [address] [place] [address], [id number] Email: Santo Sanchez DO Admit Provider Physician Attending Provider Specialty: Internal Medicine Address: [address] [place] [address], [id number] Email: [email or web address] Current Diagnoses Pneumonia, unspecified organism (04/29/23) Past Medical History (Last Updated 04/29/23 @ 08:49 by Nica Qiu MD) Adenocarcinoma, lung (Medical) Hypertension (Medical) Speech-Language Pathology Swallow Evaluation ENDOCRINOLOGIST Clinical Swallow Evaluation Start: 05/02/23 13:55 Freq: Status: Active Protocol: Document 05/02/23 13:55 CG (Rec: 05/02/23 14:13 CG [id number]) Clinical Swallow Evaluation Session Time Visit Start Time 13:00 Visit Stop Time 13:30 Total Visit Minutes 30 Visit Information Visit Number [address] Sanchez Reason for Referral dysphagia, globus sensation Setting Assessment Location Acute Care Visit Type Note Type Initial evaluation Next Note Type Next Note Type Discharge Summary Patient Information Identification Type Name History Per H&P: Aimee Nunn is a 67yo F with PMH of lung cancer s/p L bronchial stent, currently undergoing chemo with carboplatin/pembrolizumab /pemetrexed plus radiation, HTN, hypothyroidism who presents with dyspnea, chest pain and fatigue. Patient last received chemo 2 weeks ago and didn't feel very well afterward like she usually does. She continued to have worsening fatigue, dyspnea and then developed chest pain so came to the ED. She was found to have bilateral PNA and PE. Her lung tumors were decreased in size from prior. Admitted for IV abx, and treatment of PE. Not requiring supp O2. She states she would like to be DNR, but ok with intubation. Denies lightheadedness, NV, abd pain or diarrhea. In the ED found to have platelets of 33k, WBC 1.6 with ANC [address] Bashir her oncologist called who recommended granix until ANC > 1000, platelet transfusion if drops <30k and blood transfusion if Hgb <8. Pt was referred to speech therapy due to complaints to DO that she is having difficulty swallowing. Subjective Observations Pt was seated upright in hospital chair upon ST entry to room, with Ensure and water at bedside. She was short of breath, but oriented and cooperative. Reported by Patient/Caregiver Pain/Discomfort Yes Location Neck Other Symptoms Difficulty swallowing solids Comment Pt stated that she has been avoiding solid foods for months, partially due to aversion from solid food secondary to cancer treatment. Additionally, she states she feels as though something is sticking when swallowing, and points to the level of the sternal notch when asked where food is sticking, but also points to the back of her neck . She states she feels tightness in the back of her neck when swallowing solid foods as if food is stuck back . States that soft foods such as pudding, mashed potatoes, etc, go down okay. She has been eating soft foods and supplementing with Ensure for nutrition. Current Diet Minced & Moist (IDDSI 5) The IDDSI Framework Protocol: IDDSI.1 Objective Assessment Mental Status Alert,Responsive,Cooperative Oral Integrity WFL Dentition Within normal limits Lip Function Within normal limits Pucker Within normal limits Lip Retraction Within normal limits Alternating Pucker/Lip Retraction Within normal limits Tongue Function Within normal limits Observations of Tongue at Rest Within normal limits Tongue Protrusion Within normal limits Tongue Lateralization Within normal limits Jaw Function Within normal limits Jaw Opening Within normal limits Jaw Closing Within normal limits Hard/Soft Palate Function Within normal limits Comment Lingual, labial, mandibular function all appear WFL. Oral hygeine appeared WFL. Cough was weak and voice was hoarse and breathy, indicating airway protection is likely reduced. Food and Liquid Trials Position During Assessment Upright (90 degrees) Liquids Trialed Thin (IDDSI 0) Administration Type Cup single sip,Cup consecutive sips Oral Impairment Within normal limits Oral Phase Comments Labial seal, A-P propulsion, swallow initiation all appeared WFL. Pharyngeal Impairment Within functional limits Pharyngeal Phase Comments After trials thin liquids, mild throat clearing was observed across 3 initial trials. ENDOCRINOLOGIST cued pt to perform a partial chin tuck, which resulted in resolution of throat clearing. No coughing or wet vocal quality was observed across trials, although silent aspiration cannot be ruled out without an instrumental assessment. After the swallow, pt stated she felt like she had to burp, and some belching was observed. This is indicative of possible esophageal etiology which may be related to globus sensation. Strategies Attempted Chin tuck Results No overt s/sx aspiration were observed across trials of thin liquids, though throat clearing was observed after sips of thin when chin tuck was not utilized. Additionally , silent aspiration cannot be ruled out without an instrumental assessment. Chin tuck resolved throat clearing after thins. Solids were not trialed due to pt having aversions to solid foods and no difficulty on soft solids/ purees. The IDDSI Framework Protocol: IDDSI.1 Findings Swallowing Function Other dysphagia Swallowing Function Comments Functional for nutrition at this time, follow OP with MBS Severity of Swallow Impairment Within functional limits Prognosis Fair Based on Comorbidities Recommendations Instrumental Assessment Yes Recommended Solids Minced & Moist (IDDSI 5) Recommended Liquids Thin (IDDSI 0) Other Recommendations ENDOCRINOLOGIST recommends: 1. Continue with soft/puree solids/Ensure as tolerated. 2. Follow up with outpatient MBSS for imaging of swallow function. 3. If progressing to solid foods (as tolerated), consume one bite at a time, with a sip of liquid in between each bite. 4. Remain upright 90 degrees during meals and for 30 minutes after meals. 5. Use partial chin-tuck/ downward chin posture during swallows. Safety Precautions/Swallowing Remain upright (90 degrees) Recommendations during all oral intake,Small bites and sips when eating, Slow rate; swallow between bites Medication Recommendations As Tolerated Discharge Recommendations Home Comments Follow up with outpatient MBS Education Patient/Caregiver Education Described results of evaluation,Patient expressed understanding of evaluation, Patient expressed agreement with goals & treatment plans
[2023-05-02] MEDS: MORPHINE 10 MG/0.5 ML ORAL SYRINGE 5 MG PO (14:52)
== END 2023-05-02 15:05 | disposition home or self-care (01) | DRG 871 ==
LOC: ED 11:03 → AC 11:58
PROVIDERS: Admitting Provider Student in an Organized Health Care Education/Training Program; Emergency Provider Emergency Medicine; PCP Registered Nurse; Referring Provider Emergency Medicine; Visit Provider Student in an Organized Health Care Education/Training Program
DX: A41.9 Sepsis, unspecified organism (principal); I26.94 Multiple subsegmental thrombotic pulmonary emboli without acute cor pulmonale; J18.9 Pneumonia, unspecified organism; C34.12 Malignant neoplasm of upper lobe, left bronchus or lung; D61.818 Other pancytopenia; I10 Essential (primary) hypertension; E03.9 Hypothyroidism, unspecified; Z87.891 Personal history of nicotine dependence
CPT/HCPCS: 36415; 36430; 36600; 71045; 71275; 80053; 80202; 81001; 82550; 82805; 83605; 83690; 83735; 83880; 84145; 84439; 84443; 84484; 85007; 85025; 85610; 85730; 86850; 86900; 86901; 87040; 87633; 87797; 92610; 93005; 94640; 94762; 96365; 96366; 96367; 96375; 97162; 99285; 99291; P9016; J0692; J1447; J1885; J2060; J2270; Q9967

== ENCOUNTER 2023-06-08 09:29 | Emergency (ER) | payer OTHER, SELFPAY ==
[2023-04-29 13:12] VITALS: BMI 20.4
[2023-06-08] VITALS (38 sets, daily range): BP systolic 105–156; BP diastolic 59–81; PULSE 101–129; RESP 12–46; TEMP 36.6–37.1; O2SAT 90–100; BMI 18.5
--- NOTE | 2023-06-08 09:40 | DI.RAD.S_ITS ---
PROCEDURE: XR CHEST 1V INDICATIONS: Shortness of breath TECHNIQUE: One view of the chest was acquired. COMPARISON: [facility], CR, XR CHEST 1V, 04/29/2023, 8:02. FINDINGS: Surgical changes and devices: Left-sided Port-A-Cath and vascular stent noted unchanged Lungs and pleura: Right upper lobe pulmonary infiltrate has he centrally resolved. Small pleural effusion persists in the minor fissure. Underlying hyperinflation and chronic interstitial changes. There is a new pleural effusion with compressive atelectasis and or infiltrate noted on the left. Mediastinum: Mediastinal contours appear normal. Heart size is normal. Bones and chest wall: Generalized decreased osseous mineralization noted. IMPRESSION: New left pleural effusion with atelectasis and infiltrate. Essentially resolved right upper lobe pulmonary infiltrate with residual small pleural effusion in the minor fissure. Hyperinflation and atelectasis and or infiltrate Approved by: Rodrick Burks M.D. on 06/08/2023 at 10:10
[2023-06-08 10:06] LABS: Add Manual Diff / Slide Review NO; Basophils Absolute Auto 0 /uL (0-100); Basophils Percent Auto 0.5 % (0-2); Eosinophils Absolute Auto 0 /uL (0-450); Eosinophils Percent Auto 0.4 % (2-4); Hematocrit 23.7 % (36-46); Hemoglobin 7.9 g/dL (12.0-16.0); Lymphocytes Absolute Auto 300 /uL (1100-4500); Lymphocytes Percent Auto 3.7 % (25-40); Mean Corpuscular HGB Conc 33.2 % (30-36); Mean Corpuscular Hemoglobin 28.4 PG (26-34); Mean Corpuscular Volume 85.4 fL (80-100); Monocytes Absolute Auto 100 /uL (0-900); Monocytes Percent Auto 1.3 % (3-14); Neutrophils Absolute Auto 8100 /uL (1500-7000); Neutrophils Percent Auto 94.1 % (50-75); Platelet Count 329 X10^3/uL (150-400); Red Blood Cell Count 2.78 X10^6/uL (4.0-5.2); Red Cell Distribution Width 18.8 % (11.6-14.8); White Blood Cell Count 8.6 X10^3/uL (4.5-11.0)
--- NOTE | 2023-06-08 10:06 | ED.GENADULT ---
HPI - General Adult <Vadim Burch DO - Last Filed: 06/14/23 17:55> General Chief complaint: Shortness of Breath/Dyspnea Stated complaint: trouble breathing Time Seen by Provider: 06/08/23 09:46 Source: patient and family Mode of arrival: Family Vehicle History of Present Illness HPI narrative: 59-year-old female. History of lung cancer. Has received radiation therapy in the past. She is currently getting chemotherapy. Her last dose was on Sunday. She is here for evaluation of shortness of breath. Her symptoms started this morning. She went to bed last night feeling okay but this morning seems to have quite a bit of phlegm. She has left sided chest pain but this is not necessarily new for her. No lower extremity swelling. No belly pain. No nausea or vomiting. No fevers. No sore throat. No blood-tinged sputum. She is on Eliquis. Has had pulmonary embolism in the past. Also has used albuterol in the past but not recently. Related Data Home Medications Medication Instructions Recorded Confirmed amlodipine 5 mg tablet (Norvasc) 5 mg PO DAILY 11/22/22 06/08/23 latanoprost 0.005 % eye drops 1 drp ophthalmic (eye) BEDTIME 11/22/22 04/29/23 levothyroxine 88 mcg tablet 88 mcg PO DAILY 11/22/22 06/08/23 Previous Rx's Medication Instructions Recorded prochlorperazine maleate 10 mg 10 mg PO Q6H PRN Nausea #30 tabs 12/26/22 tablet (Compazine) folic acid 1 mg tablet 1 mg PO DAILY #30 tabs 12/28/22 ondansetron 4 mg disintegrating 4 mg PO Q4HR PRN Nausea #30 tabs 02/14/23 tablet metoclopramide HCl 10 mg tablet 10 mg PO Q6H PRN nausea and 04/04/23 vomiting #30 tabs apixaban 5 mg tablet (Eliquis) See Rx Instructions .Route 05/02/23 .COMPLEX #90 tabs inhalational spacing device #1 ea 05/02/23 (Aerochamber Plus Flow-Vu) lorazepam 0.5 mg tablet 0.25 mg (1/2 x 0.5 mg) PO Q6HR PRN 05/02/23 Anxiety #30 tabs morphine 10 mg/5 mL oral solution 5 mg (2.5 mL) PO Q4H PRN shortness 05/02/23 of breath #100 mL Allergies Allergy/AdvReac Type Severity Reaction Status Date / Time pantoprazole Allergy Intermediate Rash Verified 06/08/23 09:38 Review of Systems <Vadim Burch DO - Last Filed: 06/14/23 17:55> Review of Systems ROS Unobtainable: All systems reviewed & are unremarkable except as noted in HPI and below Patient History <Vadim Burch DO - Last Filed: 06/14/23 17:55> Medical History Hypertension Adenocarcinoma, lung Social History household members: significant other Smoking Status: Former smoker alcohol intake: former Smoking Status: Former smoker tobacco type: cigarettes alcohol intake frequency: 0-2 drinks per day Alcohol type: wine and hard liquor Substance Use Type: does not use Exam <DO Ryan Jones Last Filed: 06/14/23 17:55> Initial Vital Signs Initial Vital Signs: Vital Signs Temperature 98 F 06/08/23 09:35 Pulse Rate 110 H 06/08/23 09:35 Respiratory Rate 26 H 06/08/23 09:35 Blood Pressure 156/68 H 06/08/23 09:35 Pulse Oximetry 95 06/08/23 09:35 Oxygen Delivery Method Room Air 06/08/23 09:35 Const General: cooperative and ill appearing [facility] Head: normal to inspection and normocephalic Resp Effort & Inspection: labored, retractions and tachypneic Auscultation: rales and rhonchi Cardio Rate: tachycardic Rhythm: regular rhythm GI Inspection: normal to inspection and non-distended Skin General: no rashes or lesions noted Neuro General: patient alert, patient awake and moves all extremities Extrem General: capillary refill normal <Amber Cabrera DO - Last Filed: 06/10/23 14:40> Initial Vital Signs Initial Vital Signs: Vital Signs Temperature 98 F 06/08/23 09:35 Pulse Rate 110 H 06/08/23 09:35 Respiratory Rate 26 H 06/08/23 09:35 Blood Pressure 156/68 H 06/08/23 09:35 Pulse Oximetry 95 06/08/23 09:35 Oxygen Delivery Method Room Air 06/08/23 09:35 Course <Vadim Burch, DO - Last Filed: 06/14/23 17:55> Orders Ordered: Discontinued Medications Albuterol/Ipratropium (Albuterol/Ipratropium 3 Ml Ampul) 3 ml INH NOW ONE Stop: 06/08/23 10:08 Last Admin: 06/08/23 10:40 Dose: 3 ml Documented By: KIZZY Albuterol/Ipratropium (Albuterol/Ipratropium 3 Ml Ampul) 3 ml INH NOW ONE Stop: 06/08/23 11:52 Last Admin: 06/08/23 11:59 Dose: Not Given Documented By: CAMELIA Amlodipine Besylate (Amlodipine 5 Mg Tablet) 5 mg PO DAILY@0700 [facility] Last Admin: 06/09/23 07:32 Dose: 5 mg Documented By: TYSON Apixaban (Apixaban 5 Mg Tablet) 5 mg PO BID [facility] Last Admin: 06/08/23 20:06 Dose: 5 mg Documented By: JUAN ANTONIO Apixaban (Apixaban 5 Mg Tablet) 5 mg PO Q12H [facility] Last Admin: 06/09/23 18:11 Dose: 5 mg Documented By: Admin: 06/09/23 07:32 Dose: 5 mg Documented By: TYSON Folic Acid (Folic Acid 1 Mg Tablet) 1 mg PO DAILY [facility] Last Admin: 06/08/23 20:06 Dose: 1 mg Documented By: JUAN ANTONIO Folic Acid (Folic Acid 1 Mg Tablet) 1 mg PO DAILY@0700 [facility] Last Admin: 06/09/23 07:32 Dose: 1 mg Documented By: TYSON Sodium Chloride (Normal Saline 0.9%) 1,000 mls @ 125 mls/hr IV CONT [facility] Last Infusion: 06/08/23 11:40 Dose: Infused Documented By: Admin: 06/08/23 10:11 Dose: 125 mls/hr Documented By: MEGAN Levofloxacin (Levaquin) 750 mg in 150 mls @ 100 mls/hr IV NOW ONE Stop: 06/08/23 11:36 Last Infusion: 06/08/23 12:30 Dose: Infused Documented By: Admin: 06/08/23 10:25 Dose: 100 mls/hr Documented By: MEGAN Levothyroxine Sodium (Levothyroxine 88 Mcg Tablet) 88 mcg PO DAILY@0600 [facility] Last Admin: 06/09/23 07:31 Dose: 88 mcg Documented By: TYSON Lorazepam (Lorazepam 0.5 Mg Tablet) 0.25 mg PO BID [facility] Last Admin: 06/08/23 20:07 Dose: 0.25 mg Documented By: JUAN ANTONIO Lorazepam (Lorazepam 0.5 Mg Tablet) 0.25 mg PO Q12H [facility] Last Admin: 06/09/23 18:11 Dose: 0.25 mg Documented By: Admin: 06/09/23 07:31 Dose: 0.25 mg Documented By: TYSON Ondansetron HCl (Ondansetron 4 Mg/2 Ml Inj) 4 mg IV NOW ONE Stop: 06/09/23 18:17 Last Admin: 06/09/23 18:31 Dose: 4 mg Documented By: SHILPA Vital Signs Vital signs: Vital Signs - 8 hr 06/09/23 08:30 06/09/23 09:00 06/09/23 09:00 Pulse Rate 104 H 105 H Respiratory Rate 24 24 Blood Pressure 111/75 Pulse Oximetry 95 94 06/09/23 09:30 06/09/23 10:00 06/09/23 10:00 Pulse Rate 104 H 112 H Respiratory Rate 28 H 26 H Blood Pressure 137/77 Pulse Oximetry 94 94 06/09/23 10:30 06/09/23 11:00 06/09/23 11:00 Pulse Rate 102 H 107 H Respiratory Rate 24 24 Blood Pressure 131/72 Pulse Oximetry 95 94 06/09/23 11:30 06/09/23 12:00 06/09/23 12:00 Pulse Rate 109 H 113 H Respiratory Rate 23 24 Blood Pressure 136/78 Pulse Oximetry 95 95 06/09/23 12:30 06/09/23 13:00 06/09/23 13:00 Pulse Rate 105 H 106 H Respiratory Rate 30 H 26 H Blood Pressure 137/70 Pulse Oximetry 96 95 06/09/23 13:30 06/09/23 14:00 06/09/23 14:00 Pulse Rate 107 H 107 H Respiratory Rate 26 H 24 Blood Pressure 133/69 Pulse Oximetry 95 94 06/09/23 14:30 06/09/23 15:00 06/09/23 15:00 Pulse Rate 109 H 117 H Respiratory Rate 27 H 23 Blood Pressure 127/74 Pulse Oximetry 93 95 06/09/23 15:30 Pulse Rate 114 H Respiratory Rate 26 H Blood Pressure Pulse Oximetry 94 <Amber Cabrera DO - Last Filed: 06/10/23 14:40> Orders Ordered: Discontinued Medications Albuterol/Ipratropium (Albuterol/Ipratropium 3 Ml Ampul) 3 ml INH NOW ONE Stop: 06/08/23 10:08 Last Admin: 06/08/23 10:40 Dose: 3 ml Documented By: KIZZY Albuterol/Ipratropium (Albuterol/Ipratropium 3 Ml Ampul) 3 ml INH NOW ONE Stop: 06/08/23 11:52 Last Admin: 06/08/23 11:59 Dose: Not Given Documented By: CAMELIA Amlodipine Besylate (Amlodipine 5 Mg Tablet) 5 mg PO DAILY@0700 [facility] Last Admin: 06/09/23 07:32 Dose: 5 mg Documented By: TYSON Apixaban (Apixaban 5 Mg Tablet) 5 mg PO BID [facility] Last Admin: 06/08/23 20:06 Dose: 5 mg Documented By: JUAN ANTONIO Apixaban (Apixaban 5 Mg Tablet) 5 mg PO Q12H [facility] Last Admin: 06/09/23 18:11 Dose: 5 mg Documented By: Admin: 06/09/23 07:32 Dose: 5 mg Documented By: TYSON Folic Acid (Folic Acid 1 Mg Tablet) 1 mg PO DAILY [facility] Last Admin: 06/08/23 20:06 Dose: 1 mg Documented By: JUAN ANTONIO Folic Acid (Folic Acid 1 Mg Tablet) 1 mg PO DAILY@0700 [facility] Last Admin: 06/09/23 07:32 Dose: 1 mg Documented By: TYSON Sodium Chloride (Normal Saline 0.9%) 1,000 mls @ 125 mls/hr IV CONT [facility] Last Infusion: 06/08/23 11:40 Dose: Infused Documented By: Admin: 06/08/23 10:11 Dose: 125 mls/hr Documented By: MEGAN Levofloxacin (Levaquin) 750 mg in 150 mls @ 100 mls/hr IV NOW ONE Stop: 06/08/23 11:36 Last Infusion: 06/08/23 12:30 Dose: Infused Documented By: Admin: 06/08/23 10:25 Dose: 100 mls/hr Documented By: MEGAN Levothyroxine Sodium (Levothyroxine 88 Mcg Tablet) 88 mcg PO DAILY@0600 [facility] Last Admin: 06/09/23 07:31 Dose: 88 mcg Documented By: TYSON Lorazepam (Lorazepam 0.5 Mg Tablet) 0.25 mg PO BID [facility] Last Admin: 06/08/23 20:07 Dose: 0.25 mg Documented By: JUAN ANTONIO Lorazepam (Lorazepam 0.5 Mg Tablet) 0.25 mg PO Q12H [facility] Last Admin: 06/09/23 18:11 Dose: 0.25 mg Documented By: Admin: 06/09/23 07:31 Dose: 0.25 mg Documented By: TYSON Ondansetron HCl (Ondansetron 4 Mg/2 Ml Inj) 4 mg IV NOW ONE Stop: 06/09/23 18:17 Last Admin: 06/09/23 18:31 Dose: 4 mg Documented By: SHILPA Vital Signs Vital signs: Vital Signs - 8 hr 06/09/23 08:30 06/09/23 09:00 06/09/23 09:00 Pulse Rate 104 H 105 H Respiratory Rate 24 24 Blood Pressure 111/75 Pulse Oximetry 95 94 06/09/23 09:30 06/09/23 10:00 06/09/23 10:00 Pulse Rate 104 H 112 H Respiratory Rate 28 H 26 H Blood Pressure 137/77 Pulse Oximetry 94 94 06/09/23 10:30 06/09/23 11:00 06/09/23 11:00 Pulse Rate 102 H 107 H Respiratory Rate 24 24 Blood Pressure 131/72 Pulse Oximetry 95 94 06/09/23 11:30 06/09/23 12:00 06/09/23 12:00 Pulse Rate 109 H 113 H Respiratory Rate 23 24 Blood Pressure 136/78 Pulse Oximetry 95 95 06/09/23 12:30 06/09/23 13:00 06/09/23 13:00 Pulse Rate 105 H 106 H Respiratory Rate 30 H 26 H Blood Pressure 137/70 Pulse Oximetry 96 95 06/09/23 13:30 06/09/23 14:00 06/09/23 14:00 Pulse Rate 107 H 107 H Respiratory Rate 26 H 24 Blood Pressure 133/69 Pulse Oximetry 95 94 06/09/23 14:30 06/09/23 15:00 06/09/23 15:00 Pulse Rate 109 H 117 H Respiratory Rate 27 H 23 Blood Pressure 127/74 Pulse Oximetry 93 95 06/09/23 15:30 Pulse Rate 114 H Respiratory Rate 26 H Blood Pressure Pulse Oximetry 94 Medical Decision Making <Vadim DO Kiersten - Last Filed: 06/14/23 17:55> Lab Data Lab results reviewed: Yes I reviewed the patient's lab results. 06/09/23 06:53 06/09/23 06:53 Labs: Lab Results 06/08/23 06/08/23 06/08/23 Range/Units 09:40 09:50 10:15 WBC 8.6 (4.5-11.0) X10^3/uL RBC 2.78 L (4.0-5.2) X10^6/uL Hgb 7.9 L (12.0-16.0) g/dL Hct 23.7 L (36-46) % MCV 85.4 (80-100) fL MCH 28.4 (26-34) PG MCHC 33.2 (30-36) % RDW 18.8 H (11.6-14.8) % Plt Count 329 (150-400) X10^3/uL Neut % (Auto) 94.1 H (50-75) % Lymph % (Auto) 3.7 L (25-40) % Woodruff % (Auto) 1.3 L (3-14) % Eos % (Auto) 0.4 L (2-4) % Baso % (Auto) 0.5 (0-2) % Neut # (Auto) 8100 H (5057-8663) /uL Lymph # (Auto) 300 L (3931-1537) /uL Woodruff # (Auto) 100 (0-900) /uL Eos # (Auto) 0 (0-450) /uL Baso # (Auto) 0 (0-100) /uL PT 21.4 H (10.1-12.7) SECONDS INR 1.9 H (0.9-1.3) APTT 35 (26-36) SECONDS Sodium 133 L (137-145) mmol/L Potassium 3.8 (3.4-5.1) mmol/L Chloride 97 L (98-107) mmol/L Carbon Dioxide 28 (22-32) mmol/L BUN 22 H (7-17) mg/dL Creatinine 0.92 (0.52-1.04) mg/dL Estimated GFR > 60 (>60) mL/min BUN/Creatinine Ratio 23.9 H (6-22) Glucose 110 (80-110) mg/dL Lactate 1.5 (0.7-2.1) mmol/L Calcium 9.6 (8.4-10.2) mg/dL Total Bilirubin 0.6 (0.2-1.3) mg/dL AST 57 H (14-36) IU/L ALT 64 H (<35) IU/L Alkaline Phosphatase 84 (38-126) U/L Total Creatine Kinase < 20 L (30-135) U/L Troponin I Cancelled < 0.012 NT-Pro-B Natriuret Pep 388 H (<125) pg/mL Total Protein 7.7 (6.3-8.2) g/dL Albumin 3.4 L (3.5-5.0) g/dL Globulin 4.3 H (1.7-4.1) g/dL Albumin/Globulin Ratio 0.8 L (1.0-2.8) Procalcitonin 0.16 (<0.5) ng/mL Chlamy pneumoniae PCR Not detected (Not Detect) Adenovirus (PCR) Not detected (Not Detect) B.parapertussis DNA PCR Not detected (Not Detecte) Coronavirus OC43 (PCR) Not detected (Not Detect) Coronavirus HKU1 (PCR) Not detected (Not Detect) Coronavirus 229E (PCR) Not detected (Not Detect) SARS-CoV-2 (PCR) Not detected (Not Detecte) Coronavirus NL63 (PCR) Not detected (Not Detect) Human Metapneumovir PCR Not detected (Not Detect) Influenza Type A (PCR) Not detected (Not Detect) Influenza Type B (PCR) Not detected (Not Detect) M. pneumoniae (PCR) Not detected (Not Detect) Parainfluenza 1 (PCR) Not detected (Not Detect) Parainfluenza 2 (PCR) Not detected (Not Detect) Parainfluenza 3 (PCR) Not detected (Not Detect) Parainfluenza 4 (PCR) Not detected (Not Detect) RSV (PCR) Not detected (Not Detect) Entero/Rhino (PCR) Not detected (Not Detect) Blood Type Antibody Screen Crossmatch 06/09/23 06/09/23 Range/Units 06:53 15:47 WBC 6.2 (4.5-11.0) X10^3/uL RBC 2.65 L (4.0-5.2) X10^6/uL Hgb 7.4 L (12.0-16.0) g/dL Hct 22.4 L (36-46) % MCV 84.6 (80-100) fL MCH 28.0 (26-34) PG MCHC 33.1 (30-36) % RDW 18.7 H (11.6-14.8) % Plt Count 276 (150-400) X10^3/uL Neut % (Auto) 94.0 H (50-75) % Lymph % (Auto) 3.9 L (25-40) % Woodruff % (Auto) 1.5 L (3-14) % Eos % (Auto) 0.2 L (2-4) % Baso % (Auto) 0.4 (0-2) % Neut # (Auto) 5900 (7695-4009) /uL Lymph # (Auto) 200 L (2663-9512) /uL Woodruff # (Auto) 100 (0-900) /uL Eos # (Auto) 0 (0-450) /uL Baso # (Auto) 0 (0-100) /uL PT (10.1-12.7) SECONDS INR (0.9-1.3) APTT (26-36) SECONDS Sodium 134 L (137-145) mmol/L Potassium 3.7 (3.4-5.1) mmol/L Chloride 102 (98-107) mmol/L Carbon Dioxide 28 (22-32) mmol/L BUN 14 (7-17) mg/dL Creatinine 0.87 (0.52-1.04) mg/dL Estimated GFR > 60 (>60) mL/min BUN/Creatinine Ratio 16.1 (6-22) Glucose 109 (80-110) mg/dL Lactate (0.7-2.1) mmol/L Calcium 9.3 (8.4-10.2) mg/dL Total Bilirubin (0.2-1.3) mg/dL AST (14-36) IU/L ALT (<35) IU/L Alkaline Phosphatase (38-126) U/L Total Creatine Kinase (30-135) U/L Troponin I NT-Pro-B Natriuret Pep (<125) pg/mL Total Protein (6.3-8.2) g/dL Albumin (3.5-5.0) g/dL Globulin (1.7-4.1) g/dL Albumin/Globulin Ratio (1.0-2.8) Procalcitonin (<0.5) ng/mL Chlamy pneumoniae PCR (Not Detect) Adenovirus (PCR) (Not Detect) B.parapertussis DNA PCR (Not Detecte) Coronavirus OC43 (PCR) (Not Detect) Coronavirus HKU1 (PCR) (Not Detect) Coronavirus 229E (PCR) (Not Detect) SARS-CoV-2 (PCR) (Not Detecte) Coronavirus NL63 (PCR) (Not Detect) Human Metapneumovir PCR (Not Detect) Influenza Type A (PCR) (Not Detect) Influenza Type B (PCR) (Not Detect) M. pneumoniae (PCR) (Not Detect) Parainfluenza 1 (PCR) (Not Detect) Parainfluenza 2 (PCR) (Not Detect) Parainfluenza 3 (PCR) (Not Detect) Parainfluenza 4 (PCR) (Not Detect) RSV (PCR) (Not Detect) Entero/Rhino (PCR) (Not Detect) Blood Type Cancelled Antibody Screen Cancelled Crossmatch See Detail Imaging Data Chest x-ray: Radiologist's Impression: PROCEDURE: XR CHEST 1V INDICATIONS: Shortness of breath TECHNIQUE: One view of the chest was acquired. COMPARISON: [facility], , XR CHEST 1V, 04/29/2023, 8:02. FINDINGS: Surgical changes and devices: Left-sided Port-A-Cath and vascular stent noted unchanged Lungs and pleura: Right upper lobe pulmonary infiltrate has he centrally resolved. Small pleural effusion persists in the minor fissure. Underlying hyperinflation and chronic interstitial changes. There is a new pleural effusion with compressive atelectasis and or infiltrate noted on the left. Mediastinum: Mediastinal contours appear normal. Heart size is normal. Bones and chest wall: Generalized decreased osseous mineralization noted. IMPRESSION: New left pleural effusion with atelectasis and infiltrate. Essentially resolved right upper lobe pulmonary infiltrate with residual small pleural effusion in the minor fissure. Hyperinflation and atelectasis and or infiltrate CT scan - chest: Radiologist's Impression: PROCEDURE: CT ANGIO CHEST PE PROTOCOL INDICATIONS: Chest pain, shortness of breath, tachycardia. History of chemo and radiation for lung cancer6 TECHNIQUE: After the administration of intravenous contrast, 2 mm thick sections acquired from the pulmonary apices to the posterior costophrenic angles. MIP reformats of the arterial vasculature were utilized. For radiation dose reduction, the following was used: automated exposure control, adjustment of mA and/or kV according to patient size. COMPARISON: [facility], CT, THORAX^[id number] (ADULT), 04/29/2023, 9:03. FINDINGS: Image quality: Diagnostic. Pulmonary arteries: Previously noted right-sided pulmonary emboli have resolved in the interval. No evidence of recurrent or residual image emboli. Lungs and pleura: Right upper lobe pulmonary infiltrate and consolidation persists but has improved in the interval. There is now a left lower lobe pleural effusion with increasing consolidation and possible underlying mass lesion. Left upper lobe mass with extension to the left hilum and mediastinum is slightly increased. The mediastinal component now measures of 4.7 x 6.4 cm, previously 3.7 by 5.6 cm. Additionally, there is a left bronchial stent which now appears occluded. The proximal left mainstem bronchus also appears occluded, however, there is aeration of the distal mainstem bronchus and left lung. Fluid in the right minor fissure noted as well Mediastinum: Heart size is normal, without pericardial effusion. Mediastinal mass lesion, as above Bones and chest wall: No suspicious bony lesions. Ribs and thoracic spine appear intact throughout. No axillary or supraclavicular adenopathy. No thyroid nodules which require sonographic follow up, per consensus guidelines. Abdomen: Visualized upper abdominal solid organs appear normal in the early arterial phase of enhancement. IMPRESSION: No evidence of pulmonary embolism, aortic dissection or aneurysm. Right-sided pulmonary embolism has resolved in the interval. Increasing left upper lobe mass lesion with mediastinal invasion resulting and interval occlusion of the proximal left mainstem bronchus. There is a aeration of the distal mainstem bronchus, but increasing consolidation in the left lower lobe and moderate left pleural effusion. Improved right upper lobe pulmonary infiltrate with residual medial underlying consolidation and a new left upper lobe pleural based mass lesion 1.2 cm ECG Data Attestation: I personally reviewed and interpreted this ECG as follows: Interpretation: Sinus tachycardia Ventricular rate 106 Normal axis Normal QRS Artifact noted in V3 and V4 No ST T wave changes MDM Narrative Medical decision making narrative: Patient has known history of lung cancer. Arrived today in moderate respiratory distress speaking in one-word sentences. Was not hypoxic. Did have some improvement after the nebulizer treatments. Was initially given Levaquin however she is not neutropenic and after completion of her workup here I feel that an infection is less likely. CT scan shows worsening of the left upper lobe mass and it is pushing in the left bronchus. It appears that the stent that was placed in the bronchus is now occluded and given the CT scan there was concern about postobstructive pathology. I discussed the case with Dr. Bashir who is the patient's oncologist. He recommended the patient be transferred for further evaluation and treatment. I do feel that it would be best the patient is transferred to [facility] as that is where she is received all of her treatment up to this point. Patient is stable. Care turned over to Dr. capps for continued evaluation until transfer can be met. <Amber Cabrera, DO - Last Filed: 06/10/23 14:40> Lab Data Labs: Lab Results 06/08/23 06/08/23 06/08/23 Range/Units 09:40 09:50 10:15 WBC 8.6 (4.5-11.0) X10^3/uL RBC 2.78 L (4.0-5.2) X10^6/uL Hgb 7.9 L (12.0-16.0) g/dL Hct 23.7 L (36-46) % MCV 85.4 (80-100) fL MCH 28.4 (26-34) PG MCHC 33.2 (30-36) % RDW 18.8 H (11.6-14.8) % Plt Count 329 (150-400) X10^3/uL Neut % (Auto) 94.1 H (50-75) % Lymph % (Auto) 3.7 L (25-40) % Woodruff % (Auto) 1.3 L (3-14) % Eos % (Auto) 0.4 L (2-4) % Baso % (Auto) 0.5 (0-2) % Neut # (Auto) 8100 H (4419-4324) /uL Lymph # (Auto) 300 L (4636-9603) /uL Woodruff # (Auto) 100 (0-900) /uL Eos # (Auto) 0 (0-450) /uL Baso # (Auto) 0 (0-100) /uL PT 21.4 H (10.1-12.7) SECONDS INR 1.9 H (0.9-1.3) APTT 35 (26-36) SECONDS Sodium 133 L (137-145) mmol/L Potassium 3.8 (3.4-5.1) mmol/L Chloride 97 L (98-107) mmol/L Carbon Dioxide 28 (22-32) mmol/L BUN 22 H (7-17) mg/dL Creatinine 0.92 (0.52-1.04) mg/dL Estimated GFR > 60 (>60) mL/min BUN/Creatinine Ratio 23.9 H (6-22) Glucose 110 (80-110) mg/dL Lactate 1.5 (0.7-2.1) mmol/L Calcium 9.6 (8.4-10.2) mg/dL Total Bilirubin 0.6 (0.2-1.3) mg/dL AST 57 H (14-36) IU/L ALT 64 H (<35) IU/L Alkaline Phosphatase 84 (38-126) U/L Total Creatine Kinase < 20 L (30-135) U/L Troponin I Cancelled < 0.012 NT-Pro-B Natriuret Pep 388 H (<125) pg/mL Total Protein 7.7 (6.3-8.2) g/dL Albumin 3.4 L (3.5-5.0) g/dL Globulin 4.3 H (1.7-4.1) g/dL Albumin/Globulin Ratio 0.8 L (1.0-2.8) Procalcitonin 0.16 (<0.5) ng/mL Chlamy pneumoniae PCR Not detected (Not Detect) Adenovirus (PCR) Not detected (Not Detect) B.parapertussis DNA PCR Not detected (Not Detecte) Coronavirus OC43 (PCR) Not detected (Not Detect) Coronavirus HKU1 (PCR) Not detected (Not Detect) Coronavirus 229E (PCR) Not detected (Not Detect) SARS-CoV-2 (PCR) Not detected (Not Detecte) Coronavirus NL63 (PCR) Not detected (Not Detect) Human Metapneumovir PCR Not detected (Not Detect) Influenza Type A (PCR) Not detected (Not Detect) Influenza Type B (PCR) Not detected (Not Detect) M. pneumoniae (PCR) Not detected (Not Detect) Parainfluenza 1 (PCR) Not detected (Not Detect) Parainfluenza 2 (PCR) Not detected (Not Detect) Parainfluenza 3 (PCR) Not detected (Not Detect) Parainfluenza 4 (PCR) Not detected (Not Detect) RSV (PCR) Not detected (Not Detect) Entero/Rhino (PCR) Not detected (Not Detect) Blood Type Antibody Screen Crossmatch 06/09/23 06/09/23 Range/Units 06:53 15:47 WBC 6.2 (4.5-11.0) X10^3/uL RBC 2.65 L (4.0-5.2) X10^6/uL Hgb 7.4 L (12.0-16.0) g/dL Hct 22.4 L (36-46) % MCV 84.6 (80-100) fL MCH 28.0 (26-34) PG MCHC 33.1 (30-36) % RDW 18.7 H (11.6-14.8) % Plt Count 276 (150-400) X10^3/uL Neut % (Auto) 94.0 H (50-75) % Lymph % (Auto) 3.9 L (25-40) % Woodruff % (Auto) 1.5 L (3-14) % Eos % (Auto) 0.2 L (2-4) % Baso % (Auto) 0.4 (0-2) % Neut # (Auto) 5900 (8585-6870) /uL Lymph # (Auto) 200 L (0966-0802) /uL Woodruff # (Auto) 100 (0-900) /uL Eos # (Auto) 0 (0-450) /uL Baso # (Auto) 0 (0-100) /uL PT (10.1-12.7) SECONDS INR (0.9-1.3) APTT (26-36) SECONDS Sodium 134 L (137-145) mmol/L Potassium 3.7 (3.4-5.1) mmol/L Chloride 102 (98-107) mmol/L Carbon Dioxide 28 (22-32) mmol/L BUN 14 (7-17) mg/dL Creatinine 0.87 (0.52-1.04) mg/dL Estimated GFR > 60 (>60) mL/min BUN/Creatinine Ratio 16.1 (6-22) Glucose 109 (80-110) mg/dL Lactate (0.7-2.1) mmol/L Calcium 9.3 (8.4-10.2) mg/dL Total Bilirubin (0.2-1.3) mg/dL AST (14-36) IU/L ALT (<35) IU/L Alkaline Phosphatase (38-126) U/L Total Creatine Kinase (30-135) U/L Troponin I NT-Pro-B Natriuret Pep (<125) pg/mL Total Protein (6.3-8.2) g/dL Albumin (3.5-5.0) g/dL Globulin (1.7-4.1) g/dL Albumin/Globulin Ratio (1.0-2.8) Procalcitonin (<0.5) ng/mL Chlamy pneumoniae PCR (Not Detect) Adenovirus (PCR) (Not Detect) B.parapertussis DNA PCR (Not Detecte) Coronavirus OC43 (PCR) (Not Detect) Coronavirus HKU1 (PCR) (Not Detect) Coronavirus 229E (PCR) (Not Detect) SARS-CoV-2 (PCR) (Not Detecte) Coronavirus NL63 (PCR) (Not Detect) Human Metapneumovir PCR (Not Detect) Influenza Type A (PCR) (Not Detect) Influenza Type B (PCR) (Not Detect) M. pneumoniae (PCR) (Not Detect) Parainfluenza 1 (PCR) (Not Detect) Parainfluenza 2 (PCR) (Not Detect) Parainfluenza 3 (PCR) (Not Detect) Parainfluenza 4 (PCR) (Not Detect) RSV (PCR) (Not Detect) Entero/Rhino (PCR) (Not Detect) Blood Type Cancelled Antibody Screen Cancelled Crossmatch See Detail MDM Narrative Medical decision making narrative: Patient has known history of lung cancer. Arrived today in moderate respiratory distress speaking in one-word sentences. Was not hypoxic. Did have some improvement after the nebulizer treatments. Was initially given Levaquin however she is not neutropenic and after completion of her workup here I feel that an infection is less likely. CT scan shows worsening of the left upper lobe mass and it is pushing in the left bronchus. It appears that the stent that was placed in the bronchus is now occluded and given the CT scan there was concern about postobstructive pathology. I discussed the case with Dr. Bashir who is the patient's oncologist. He recommended the patient be transferred for further evaluation and treatment. I do feel that it would be best the patient is transferred to [facility] as that is where she is received all of her treatment up to this point. Patient is stable. Care turned over to Dr. capps for continued evaluation until transfer can be met. 06/09/23 Mank: Patient signed out to myself by Dr. Capps. Patient is stable overnight, awaiting bed assignment at [facility] is reportedly 1st on the wait list. Patient labs, imaging were reviewed. Patient was seen and evaluated by myself. She is a little bit dyspneic but able to converse. She denies any hemoptysis. She does note she is had some difficulty with vomiting especially with clear fluids. Call back to [facility] unlikely to have been available currently they are currently boarding. Spoke with patient and family at bedside the reluctant to transfer to other facilities. They did ask about returning home patient has been slightly tachycardic but overall stable discussed will call back to Oncology to discuss if this is an option. SPoke with Dr. Arceo [facility] discussed patient has been boarding has not required oxygenation has been slightly tachycardic his dyspneic at rest but has not required O2 and been able to ambulate back and forth to the bathroom. He recommends seeing if she would require home O2 to ambulate her little bit more with pulse oximetry if she maintains her oxygenation could be discharged home to follow up with them this week. We also reviewed she should continue her apixaban with return precautions have any hemoptysis. Spoke with patient and partner Vicki. Patient with a ambulation does become quite tachycardic does not drop her O2 sat. After discussion we will continue to board and seek placement elsewhere. Patient and family are more open to transfer to other facilities. Spoke with Shorty Meza @ [facility] but asked that we speak with pulmonology for consultation if they are agreeable with intervention or that it would be helpful for transfer can potentially accept. We will call back with pulmonology consult. Spoke with Oncology at [facility]. States they do not place pulmonary stents and he does recommend giving 1 unit packed red blood cells based on patient's persistent hemoglobin of 7 but would recommend either altering chemotherapy or comfort measures if other facilities cannot assist with stent. Shorty Meza at [facility] accepts for transfer. They spoke with pulmonology would like to see the patient. Accept for transfer to [facility] ED where they will assign bed after arrival. Patient has continued to have some mild tachycardia, she was agreeable for blood transfusion. She is been able to ambulate back and forth to the bathroom. Will hold off at this time as transport is en route and has been stable. will defer to treatment team at . Patient and partner are agreeable to transfer to . Discharge Plan Departure Patient Disposition: [facility] Clinical Impression: Lung cancer, Shortness of breath Prescriptions: No Action latanoprost 0.005 % Drops 1 drp OPHTHALMIC (EYE) BEDTIME Rx Instructions: both eyes levothyroxine 88 mcg Tablet 88 mcg PO DAILY amlodipine [Norvasc] 5 mg Tablet 5 mg PO DAILY prochlorperazine maleate [Compazine] 10 mg tablet 10 mg PO Q6H PRN (Reason: Nausea) Qty: 30 0RF folic acid 1 mg Tablet 1 mg PO DAILY Qty: 30 3RF ondansetron 4 mg tablet,disintegrating 4 mg PO Q4HR PRN (Reason: Nausea) Qty: 30 1RF metoclopramide HCl 10 mg tablet 10 mg PO Q6H PRN (Reason: nausea and vomiting) Qty: 30 0RF morphine 10 mg/5 mL solution 5 mg PO Q4H PRN (Reason: shortness of breath) Qty: 100 0RF lorazepam 0.5 mg Tablet 0.25 mg PO Q6HR PRN (Reason: Anxiety) Qty: 30 0RF Rx Instructions: avoid simultaneous use with morphine (DME) Aerochamber Plus Flow-Vu Spacer See Rx Instructions .ROUTE .MEDSUPPLY Qty: 1 0RF Rx Instructions: As directed Eliquis 5 mg tablet See Rx Instructions .ROUTE .COMPLEX Qty: 90 0RF Rx Instructions: take 2 pills (10mg) twice daily for 4 days, then take 1 pill (5mg) twice daily thereafter Referrals: Emi Mays ARNP [Primary Care Provider] -
--- NOTE | 2023-06-08 10:09 | DI.CT.S_ITS ---
PROCEDURE: CT ANGIO CHEST PE PROTOCOL INDICATIONS: Chest pain, shortness of breath, tachycardia. History of chemo and radiation for lung cancer6 TECHNIQUE: After the administration of intravenous contrast, 2 mm thick sections acquired from the pulmonary apices to the posterior costophrenic angles. MIP reformats of the arterial vasculature were utilized. For radiation dose reduction, the following was used: automated exposure control, adjustment of mA and/or kV according to patient size. COMPARISON: [facility], CT, THORAX^[id number]_PROTOCOL (ADULT), 04/29/2023, 9:03. FINDINGS: Image quality: Diagnostic. Pulmonary arteries: Previously noted right-sided pulmonary emboli have resolved in the interval. No evidence of recurrent or residual image emboli. Lungs and pleura: Right upper lobe pulmonary infiltrate and consolidation persists but has improved in the interval. There is now a left lower lobe pleural effusion with increasing consolidation and possible underlying mass lesion. Left upper lobe mass with extension to the left hilum and mediastinum is slightly increased. The mediastinal component now measures of 4.7 x 6.4 cm, previously 3.7 by 5.6 cm. Additionally, there is a left bronchial stent which now appears occluded. The proximal left mainstem bronchus also appears occluded, however, there is aeration of the distal mainstem bronchus and left lung. Fluid in the right minor fissure noted as well Mediastinum: Heart size is normal, without pericardial effusion. Mediastinal mass lesion, as above Bones and chest wall: No suspicious bony lesions. Ribs and thoracic spine appear intact throughout. No axillary or supraclavicular adenopathy. No thyroid nodules which require sonographic follow up, per consensus guidelines. Abdomen: Visualized upper abdominal solid organs appear normal in the early arterial phase of enhancement. IMPRESSION: No evidence of pulmonary embolism, aortic dissection or aneurysm. Right-sided pulmonary embolism has resolved in the interval. Increasing left upper lobe mass lesion with mediastinal invasion resulting and interval occlusion of the proximal left mainstem bronchus. There is a aeration of the distal mainstem bronchus, but increasing consolidation in the left lower lobe and moderate left pleural effusion. Improved right upper lobe pulmonary infiltrate with residual medial underlying consolidation and a new left upper lobe pleural based mass lesion 1.2 cm Approved by: Rodrick Burks M.D. on 06/08/2023 at 10:38
[2023-06-08] MEDS: SODIUM CHLORIDE 0.9% 1,000 ML 125 ML IV (10:11)
[2023-06-08 10:15] LABS: INR 1.9 (0.9-1.3); Prothrombin Time 21.4 SECONDS (10.1-12.7)
[2023-06-08 10:22] LABS: PTT Partial Thromboplastin Tim 35 SECONDS (26-36)
[2023-06-08 10:23] LABS: Creatine Kinase < 20 U/L (30-135); Lactate (Lactic Acid) 1.5 mmol/L (0.7-2.1)
[2023-06-08] MEDS: levoFLOXacin 750 MG/150 ML PIGGYBACK 100 MG IV (10:25)
[2023-06-08 10:34] LABS: Alanine Aminotransferase 64 IU/L (<35); Albumin 3.4 g/dL (3.5-5.0); Albumin Globulin Ratio 0.8 (1.0-2.8); Alkaline Phosphatase 84 U/L (38-126); Aspartate Aminotransferase 57 IU/L (14-36); BUN Creatinine Ratio 23.9 (6-22); Bilirubin Total 0.6 mg/dL (0.2-1.3); Blood Urea Nitrogen 22 mg/dL (7-17); Calcium 9.6 mg/dL (8.4-10.2); Carbon Dioxide 28 mmol/L (22-32); Chloride 97 mmol/L (98-107); Estimated Glomerular Filt Rate > 60 mL/min (>60); Globulin 4.3 g/dL (1.7-4.1); Glucose 110 mg/dL (80-110); HEMOLYSIS < 15 (0-50); Potassium 3.8 mmol/L (3.4-5.1); Sodium 133 mmol/L (137-145); Total Protein 7.7 g/dL (6.3-8.2)
[2023-06-08 10:36] LABS: Troponin I < 0.012 ng/mL (0.01-0.034)
[2023-06-08] MEDS: ALBUTEROL/IPRATROPIUM 3 ML AMPUL INH (10:40)
[2023-06-08 10:41] LABS: Procalcitonin 0.16 ng/mL (<0.5)
[2023-06-08 11:23] LABS: Adenovirus Not Detected (Not Detect); B. parapertussis Not Detected (Not Detecte); Bordetella pertussis Not Detected (Not Detect); Chlamydophila pneumoniae Not Detected (Not Detect); Coronavirus 229E Not Detected (Not Detect); Coronavirus HKU1 Not Detected (Not Detect); Coronavirus NL 63 Not Detected (Not Detect); Coronavirus OC43 Not Detected (Not Detect); Human Metapneumovirus Not Detected (Not Detect); Human Rhinovirus/Enterovirus Not Detected (Not Detect); Influenza A Not Detected (Not Detect); Influenza B Not Detected (Not Detect); Mycoplasma pneumoniae Not Detected (Not Detect); Parainfluenza Virus 1 Not Detected (Not Detect); Parainfluenza Virus 2 Not Detected (Not Detect); Parainfluenza Virus 3 Not Detected (Not Detect); Parainfluenza Virus 4 Not Detected (Not Detect); Respiratory Syncytial Virus Not Detected (Not Detect); SARS- CoV-2 Not Detected (Not Detecte)
[2023-06-08 11:40] LABS: NT-proBNP (BNP-Adult 18+) 388 pg/mL (<125)
--- NOTE | 2023-06-08 17:52 | PC.NURSE ---
switched to a hospital bed.
[2023-06-08] MEDS: FOLIC ACID 1 MG TABLET PO (20:06)
[2023-06-08] MEDS: APIXABAN 5 MG TABLET PO (20:06)
[2023-06-08] MEDS: LORazepam 0.5 MG TABLET 0.25 MG PO (20:07)
--- NOTE | 2023-06-08 21:41 | PC.NURSE ---
Addendum entered by Bharti Garza CNA 06/09/23 01:20: HEART NURSE note: Spoke to Randolph over at [facility] at 0113 regarding transfer of patient. Explained that patient is a complex cancer patient that receives all their care at [facility] and we have spoken to their oncologist and that person would like patient transferred over the [facility]. Randolph said that she is the first on their waiting list. Original Note: HEART NURSE note: Spoke to Antione at [facility] regarding a possible transfer. Antione said there has been movement on their waitlist but not a lot of movement for tonight. Let Doctor Jefry know about update.
[2023-06-09] VITALS (40 sets, daily range): BP systolic 111–143; BP diastolic 69–92; PULSE 101–132; RESP 20–39; TEMP 36.8; O2SAT 90–96; BMI 18.5
[2023-06-09 07:11] LABS: Add Manual Diff / Slide Review NO; Basophils Absolute Auto 0 /uL (0-100); Basophils Percent Auto 0.4 % (0-2); Eosinophils Absolute Auto 0 /uL (0-450); Eosinophils Percent Auto 0.2 % (2-4); Hematocrit 22.4 % (36-46); Hemoglobin 7.4 g/dL (12.0-16.0); Lymphocytes Absolute Auto 200 /uL (1100-4500); Lymphocytes Percent Auto 3.9 % (25-40); Mean Corpuscular HGB Conc 33.1 % (30-36); Mean Corpuscular Volume 84.6 fL (80-100); Monocytes Absolute Auto 100 /uL (0-900); Monocytes Percent Auto 1.5 % (3-14); Neutrophils Absolute Auto 5900 /uL (1500-7000); Platelet Count 276 X10^3/uL (150-400); Red Blood Cell Count 2.65 X10^6/uL (4.0-5.2); Red Cell Distribution Width 18.7 % (11.6-14.8); White Blood Cell Count 6.2 X10^3/uL (4.5-11.0)
[2023-06-09 07:16] LABS: BUN Creatinine Ratio 16.1 (6-22); Blood Urea Nitrogen 14 mg/dL (7-17); Calcium 9.3 mg/dL (8.4-10.2); Carbon Dioxide 28 mmol/L (22-32); Chloride 102 mmol/L (98-107); Estimated Glomerular Filt Rate > 60 mL/min (>60); Glucose 109 mg/dL (80-110); HEMOLYSIS < 15 (0-50); Potassium 3.7 mmol/L (3.4-5.1); Sodium 134 mmol/L (137-145)
--- NOTE | 2023-06-09 07:16 | PC.NURSE ---
pt requesting to take morning medications early;pharmacy called, will change times for medications
--- NOTE | 2023-06-09 07:17 | PC.NURSE ---
report received from jorge HERNANDEZ, care assumed
[2023-06-09] MEDS: LEVOTHYROXINE 88 MCG TABLET PO (07:31)
[2023-06-09] MEDS: LORazepam 0.5 MG TABLET 0.25 MG PO ×2 (07:31→18:11)
[2023-06-09] MEDS: APIXABAN 5 MG TABLET PO ×2 (07:32→18:11)
[2023-06-09] MEDS: FOLIC ACID 1 MG TABLET PO (07:32)
[2023-06-09] MEDS: AMLODIPINE 5 MG TABLET PO (07:32)
--- NOTE | 2023-06-09 10:02 | PC.NURSE ---
pt ambulatory to and from BR w/ stand by assist
--- NOTE | 2023-06-09 12:08 | PC.NURSE ---
pt ambulatory with pulse ox, 92-96% on RA, tachypneic, HR increased to 140's via pulse ox; returned to bed without issue, HR 110's-120's after ambulation; 96% on RA. Dr. Cabrera notified.
--- NOTE | 2023-06-09 14:37 | PC.NURSE ---
Spoke with [facility], pt is approved for where ever a bed is available w/o restrictions.
--- NOTE | 2023-06-09 15:31 | PC.NURSE ---
pt sleeping, RR even, unlabored. on all monitoring equipment; provider aware.
--- NOTE | 2023-06-09 16:04 | PC.NURSE ---
report to Amber HERNANDEZ at [facility]
--- NOTE | 2023-06-09 16:17 | PC.NURSE ---
blood transfusion cancelled per Dr. Cabrera; pt and family aware. pt's life partner emiliano at bedside.
--- NOTE | 2023-06-09 17:53 | PC.NURSE ---
Patient ambulated to the bathroom stand by assist and requested privacy in the bathroom. Pt is tachypneic but o2 saturation maintaining on room air with exhertion.
[2023-06-09] MEDS: ONDANSETRON 4 MG/2 ML INJ IV (18:31)
== END 2023-06-09 18:33 | disposition short-term general hospital (02) ==
PROVIDERS: Emergency Medicine; Family Medicine Addiction Medicine; Emergency Provider Emergency Medicine; PCP Registered Nurse
DX: C34.90 Malignant neoplasm of unspecified part of unspecified bronchus or lung (principal); R06.02 Shortness of breath; R00.0 Tachycardia, unspecified; Z20.822 Contact with and (suspected) exposure to COVID-19; Z79.01 Long term (current) use of anticoagulants
CPT/HCPCS: 36415; 71045; 71275; 80048; 80053; 82550; 83605; 83880; 84145; 84484; 85025; 85610; 85730; 87040; 87633; 93005; 93010; 94640; 96365; 96366; 96375; 99285; J1956; J2405; Q9967